=== PATIENT | male | born 1940 | race Caucasian/White ===

== ENCOUNTER → 2020-04-29 12:48 | Outpatient (BNVA) | payer MEDICARE, SELFPAY | PROVIDERS: PCP Internal Medicine; Visit Provider Internal Medicine Cardiovascular Disease | DX: I48.91 Unspecified atrial fibrillation (principal); Z98.890 Other specified postprocedural states | CPT/HCPCS: 93005; 99202 ==

== ENCOUNTER → 2020-05-22 12:51 | Outpatient (REF) | payer MEDICARE, SELFPAY ==
--- NOTE | 2020-05-22 13:00 | ECG_ITS ---
Hook-up date: 2020-05-22 14:08:00 Duration: 24:20:00 Test Indications: PALPITATIONS Medications: 63749 QRS complexes 3971 Ventricular ectopics which represent 4 % of total QRS comp. * Supraventricular ectopics which represent % of total QRS comp. * Paced QRS complexs which represent % of total QRS comp. VENTRICULAR ECTOPY 3651 Isolated 15 Bigeminal Cycles 158 Couplets 1 Runs 4 Beats in Runs 4 Beats LONGEST at 84 BPM at 08:04:42 2020-05-23 4 Beats FASTEST at 84 BPM at 08:04:42 2020-05-23 SUPRAVENTRICULAR ECTOPY * Isolated * Couplets * Runs * Beats in Runs * Beats LONGEST at * BPM at :: -- * Beats FASTEST at * BPM at :: -- HEART RATES 35 MIN at 05:40:48 2020-05-23 58 AVG 91 MAX at 13:54:52 2020-05-23 LONGEST RR 2.9360 secs at 19:58:43 2020-05-22 S-T LEVELS Channel 1 - 128 mm at 14:08:00 2020-05-22 - 128 mm at 14:08:00 2020-05-22 Channel 2 - 128 mm at 14:08:00 2020-05-22 - 128 mm at 14:08:00 2020-05-22 Channel 3 - 128 mm at 03:32:71 -- - 128 mm at 03:32:71 Basic rhythm Atrial fibrillation No long pauses Frequent slow VR to AF Frequent Premature ventricular complexes No diary submitted Referred By: Maverick Rosas Overread By: MAVERICK ROSAS MD
--- NOTE | 2020-05-22 13:00 | CA_ITS ---
Transthoracic Echocardiogram Patient (Last, First, Middle): Damaso Richards T Gender: Male Date of : 1940 Age: 79 Procedure Date: 05/22/2020 Procedure Type: Transthoracic Echocardiogram Location: OP Height: 180.34 cm Weight: 79.38 kg BSA: 1.99 m2 Heart Rate: bpm BP: 132 / 78 mmHg Vocational Horticulture Instructor: DRAKE Referring MD: Maverick Rosas MD Imaging Technologist: Maverick Rosas MD Symptoms: I48.91 - Unspecified atrial fibrillation Study Quality: Fair ECG Rhythm: Atrial Fibrillation Conclusions: - 1. Low normal LV systolic function 2. At least moderate left atrial enlargement 3. Moderate mitral annular calcification with normal cardiac valvular Doppler 4. Normal RV systolic pressure 5. No pericardial effusion Findings Left Ventricle Normal left ventricular cavity size. There is normal left ventricular wall thickness. The left ventricular systolic function is low normal. The visually estimated ejection fraction is between 50-55%. Diastolic function is indeterminate on the basis of available data. Right Ventricle Normal right ventricular cavity size and systolic function. Atria The left atrium is moderately dilated. The right atrium is mildly dilated. Aortic Valve There is mild calcification of the aortic valve. There is mild thickening of the aortic valve. There is no aortic valve stenosis. There is no aortic valve regurgitation. Mitral Valve There is mild anterior and severe posterior mitral leaflet thickening. The posterior mitral leaflet is immobile. There is moderate mitral annular calcification. There is trace mitral valve regurgitation. There is no mitral valve stenosis. Pulmonic Valve The pulmonic valve was not well visualized. Tricuspid Valve Likely normal tricuspid valve structure and function. There is mild tricuspid valve regurgitation. The right ventricular systolic pressure is normal. The right ventricular systolic pressure is 27 mmHg. Normal right atrial pressure. There is no evidence of pulmonary hypertension. Great Vessels All visible segments of the aorta are normal in size. Venous The inferior vena cava is normal in size and collapses greater than 50% with inspiration. Pericardium/Pleural There is no evidence of pericardial effusion. Prior Study Comparison No prior study available for comparison. Measurements 2D Linear Measurements IVSd: 0.96 0.6-0.9/0.6-1.0 cm LVIDd: 4.02 3.9-5.3/4.2-5.9 cm LVIDd Index: 2.02 2.4-3.2/2.2-3.1 cm/m2 LVIDs: 2.64 2.0-3.6 cm LVPWd: 0.97 0.7-1.1 cm Ao Root: 3.70 2.1-3.5 cm LA Diam: 4.50 2.7-3.8/3.0-4.0 cm LAIDs Index: 2.26 1.5-2.3 cm/m2 LV Mass: 152.17 67-162/88-224 g LV Mass Index: 76.47 43-95/49-115 g/m2 LVOT Diam: 2.30 3.0+(-)1.3 cm 2D Systolic Function EF 4C: 53.90 >55% EF 2C: 54.10 >55% EF BiP: 53.70 >55% Mitral Valve MV VTI: 0.37 MV Pk Hunter: 1.37 MV Mn Hunter: 0.57 MV Pk Grad: 8.00 MV Mn Grad: 2.00 MVA Continuity: 1.73 Aortic Valve AoV Pk Hunter: 1.04 AoV Mn Hunter: 0.72 AoV VTI: 0.22 AoV Pk Grad: 4.00 Aov Mn Grad: 2.00 PREMA Cont.VTI: 2.90 LVOT LVOT Pk Hunter: 0.86 LVOT Mn Hunter: 0.52 LVOT VTI: 0.16 LVOT Pk Grad: 3.00 LVOT Mn Grad: 1.00 LVOT Diam: 2.30 LVOT Area: 4.15 Tricuspid Valve TR Pk Hunter: 2.43 TR Pk Grad: 24.00 RA Press: 3.00 RVSP: 27.00 Great Vessels Aorta Ao Root-2D: 3.70 2.0-3.7 cm Ao Asc: 3.10 2.1-3.4 cm Ao Arch: 3.30 Updated in Other Vendor System with Status of Final Maverick Rosas MD electronically signed on 05/22/2020 4:22:53 PM with status of Final
== END ==
LOC: HO.CARD 12:51
PROVIDERS: PCP Internal Medicine; Visit Provider Internal Medicine Cardiovascular Disease
DX: I10 Essential (primary) hypertension (principal); I48.91 Unspecified atrial fibrillation; Z98.890 Other specified postprocedural states
CPT/HCPCS: 93226; 93306

== ENCOUNTER → 2020-06-05 13:08 | Outpatient (BNVA) | payer MEDICARE, SELFPAY | PROVIDERS: PCP Internal Medicine; Visit Provider Internal Medicine Cardiovascular Disease | DX: R00.1 Bradycardia, unspecified (principal); I48.91 Unspecified atrial fibrillation; I10 Essential (primary) hypertension; Z98.890 Other specified postprocedural states | CPT/HCPCS: 99212 ==

== ENCOUNTER 2020-06-18 | Outpatient (REF) | payer MEDICARE, SELFPAY | END 2020-06-18 00:01 | disposition home or self-care (01) | LOC: HO.VC | PROVIDERS: Visit Provider Internal Medicine | DX: Z23 Encounter for immunization (principal) | CPT/HCPCS: 0011A ==

== ENCOUNTER 2020-06-26 07:45 | Outpatient (REF) | payer MEDICARE, SELFPAY ==
[2020-06-26 10:01] LABS: MANUAL DIFF FLAG NO
[2020-06-26 10:03] LABS: Basophils Absolute Auto 0.1 X10*3/uL (0.0-0.2); Basophils Percent Auto 0.7 % (0-2); Eosinophils Absolute Auto 0.8 X10*3/uL (0.0-0.4); Hemoglobin 14.6 g/dl (14.0-18.0); Imm Gran Abs Auto 0.03 X10*3/uL (0.00-0.03); Imm Gran Pct Auto 0.4 % (0.0-0.4); Lymphocytes Absolute Auto 2.4 X10*3/uL (1.2-4.9); Lymphocytes Percent Auto 31.9 % (20-40); Mean Corpuscular HGB Conc 33.2 g/dl (31.0-36.0); Mean Corpuscular Hemoglobin 31.4 pg (27.0-33.0); Mean Corpuscular Volume 94.6 fL (80-98); Mean Platelet Volume 9.6 fL (9.4-12.4); Monocytes Absolute Auto 0.8 X10*3/uL (0.1-1.2); Neutrophils Absolute Auto 3.6 X10*3/uL (2.0-8.3); Platelet Count 315 X10*3/uL (160-400); Red Blood Count 4.65 X10*6/uL (4.60-5.80); Red Cell Distribution Width 12.6 % (11.0-16.0); White Blood Count 7.5 X10*3/uL (4.8-10.8)
[2020-06-26 10:53] LABS: Alanine Aminotransferase 17 U/L (0-40); Albumin Level 4.3 g/dL (3.5-5.0); Alkaline Phosphatase 53 U/L (39-117); Anion Gap 13 (12-20); Aspartate Amino Transferase 17 U/L (5-37); Bilirubin Total 1.1 mg/dL (0.0-1.0); Blood Urea Nitrogen 21 mg/dL (9-16); Calcium 9.1 mg/dL (8.4-10.2); Carbon Dioxide 25 mmol/L (22-29); Chloride 105 mmol/L (96-108); Cholesterol 263 mg/dL; Estimated Glomerular Filt Rate > 60; Glucose Fasting 90 mg/dL (60-99); HDL Cholesterol 46 mg/dL; LDL Cholesterol Calculated 196 mg/dl; Potassium 4.4 mmol/L (3.3-5.1); Sodium 139 mmol/L (135-145); Total Protein 7.1 g/dL (6.5-8.0); Triglycerides 106 mg/dL
[2020-06-26 11:17] LABS: Free T4 (Free Thyroxine) 1.02 ng/dL (0.71-1.85); Prostate Specific Antigen Scr 3.76 ng/mL (<0.05-4.0); Thyroid Stimulating Hormone 3.27 uIU/mL (0.32-4.0)
== END 2020-06-26 07:46 | disposition home or self-care (01) ==
LOC: HO.10HDL 07:45
PROVIDERS: Visit Provider Internal Medicine
DX: I12.9 Hypertensive chronic kidney disease with stage 1 through stage 4 chronic kidney disease, or unspecified chronic kidney disease (principal); N18.9 Chronic kidney disease, unspecified; I48.0 Paroxysmal atrial fibrillation; E78.00 Pure hypercholesterolemia, unspecified; Z12.5 Encounter for screening for malignant neoplasm of prostate
CPT/HCPCS: 36415; 80053; 80061; 84153; 84439; 84443; 85025

== ENCOUNTER 2020-07-16 | Outpatient (REF) | payer MEDICARE, SELFPAY | END 2020-07-16 00:01 | disposition home or self-care (01) | LOC: HO.VC | PROVIDERS: Visit Provider Internal Medicine | DX: Z23 Encounter for immunization (principal) | CPT/HCPCS: 0012A ==

== ENCOUNTER → 2020-07-28 14:51 | Outpatient (REF) | payer MEDICARE, SELFPAY ==
--- NOTE | 2020-07-28 11:46 | ECG_ITS ---
Hook-up date: 2020-07-28 15:14:00 Duration: 43:10:00 Test Indications: BRADYCARDIA, AFIB Medications: 42004 QRS complexes 2541 Ventricular ectopics which represent 3 % of total QRS comp. * Supraventricular ectopics which represent % of total QRS comp. * Paced QRS complexs which represent % of total QRS comp. VENTRICULAR ECTOPY 2291 Isolated 17 Bigeminal Cycles 116 Couplets 7 Runs 21 Beats in Runs 3 Beats LONGEST at 144 BPM at 16:25:41 2020-07-28 3 Beats FASTEST at 144 BPM at 16:25:41 2020-07-28 SUPRAVENTRICULAR ECTOPY * Isolated * Couplets * Runs * Beats in Runs * Beats LONGEST at * BPM at :: -- * Beats FASTEST at * BPM at :: -- HEART RATES 31 MIN at 20:31:35 2020-07-28 54 AVG 92 MAX at 12:18:45 2020-07-29 LONGEST RR 3.3680 secs at 01:41:54 2020-07-29 S-T LEVELS Channel 1 - 128 mm at 15:14:00 2020-07-28 - 128 mm at 15:14:00 2020-07-28 Channel 2 - 128 mm at 15:14:00 2020-07-28 - 128 mm at 15:14:00 2020-07-28 Channel 3 - 128 mm at 03:43:31 -- - 128 mm at 03:43:31 Basic rhythm Atrial fibrillation Frequent Atrial fibrillation with slow VR, average HR of 54 bpm Frequent Premature ventricular complexes Longest pause upto 3.4 seconds No diary submitted Referred By: Maverick Rosas Overread By: MAVERICK ROSAS MD
== END ==
LOC: HO.CARD 14:51
PROVIDERS: PCP Internal Medicine; Visit Provider Internal Medicine Cardiovascular Disease
DX: R00.1 Bradycardia, unspecified (principal)
CPT/HCPCS: 93226

== ENCOUNTER 2020-08-11 08:53 | Outpatient (REF) | payer MEDICARE, SELFPAY ==
[2020-08-11 10:39] LABS: Cholesterol 245 mg/dL; HDL Cholesterol 45 mg/dL; LDL Cholesterol Calculated 174 mg/dl; Triglycerides 133 mg/dL
== END 2020-08-11 08:54 | disposition home or self-care (01) ==
LOC: HO.10HDL 08:53
PROVIDERS: Visit Provider Internal Medicine
DX: E78.00 Pure hypercholesterolemia, unspecified (principal)
CPT/HCPCS: 36415; 80061

== ENCOUNTER → 2020-09-23 12:48 | Outpatient (BNVA) | payer MEDICARE, SELFPAY | PROVIDERS: PCP Internal Medicine; Referring Provider Internal Medicine; Visit Provider Nurse Practitioner Family | DX: I48.91 Unspecified atrial fibrillation (principal); R00.1 Bradycardia, unspecified; I10 Essential (primary) hypertension; Z98.890 Other specified postprocedural states | CPT/HCPCS: 99212 ==

== ENCOUNTER 2020-11-24 15:36 | Outpatient (REF) | payer MEDICARE, SELFPAY | END 2020-11-24 15:37 | disposition home or self-care (01) | LOC: HO.LAB 15:36 | PROVIDERS: PCP Internal Medicine; Visit Provider Internal Medicine | DX: Z20.822 Contact with and (suspected) exposure to COVID-19 (principal) | CPT/HCPCS: C9803; U0003; U0005 ==

== ENCOUNTER 2020-12-23 10:03 | Outpatient (REF) | payer MEDICARE, SELFPAY | END 2020-12-23 10:04 | disposition home or self-care (01) | LOC: HO.LAB 10:03 | PROVIDERS: PCP Internal Medicine; Visit Provider Internal Medicine | DX: Z20.822 Contact with and (suspected) exposure to COVID-19 (principal) | CPT/HCPCS: C9803; U0003; U0005 ==

== ENCOUNTER → 2021-01-27 12:49 | Outpatient (BNVA) | payer MEDICARE, SELFPAY | PROVIDERS: PCP Internal Medicine; Referring Provider Internal Medicine; Visit Provider Internal Medicine Cardiovascular Disease | DX: I48.91 Unspecified atrial fibrillation (principal); Z98.890 Other specified postprocedural states | CPT/HCPCS: 99212 ==

== ENCOUNTER → 2021-07-27 13:44 | Outpatient (REF) | payer MEDICARE, SELFPAY ==
--- NOTE | 2021-07-27 13:50 | HM_ITS ---
* Total monitoring time 2 days and 23 hours. * Underlying rhythm is atrial fibrillation. * Average rate 74/Min. Range 49 to 109/Min. No significant tachycardia or bradycardia. * Frequent PVCs. 2 morphologies and 139 couplets. [place] 2.7%. Brief runs noted. Longest 4 beats. Cannot exclude aberrantly conducted beats. * No patient events. MTDD
--- NOTE | 2021-07-27 14:00 | CA_ITS ---
Transthoracic Echocardiogram Patient (Last, First, Middle): Damaso Richards T Gender: Male Date of : 1940 Age: 80 Procedure Date: 07/27/2021 Procedure Type: Transthoracic Echocardiogram Location: OP Height: 182.88 cm Weight: 77.11 kg BSA: 1.99 m2 Heart Rate: bpm BP: 120 / 85 mmHg Operational Communication Chief: NACHO Referring MD: Maverick Rosas MD Symptoms: Z98.890 - Other specified postprocedural states Study Quality: Fair ECG Rhythm: Atrial Fibrillation Conclusions: - The left ventricular systolic function is low normal. The calculated ejection fraction is 51% by biplane method. - There is severely decreased right ventricular systolic function. TAPSE 0.8cm. - s/p mitral valve repair, with no significant residual stenosis or regurgitation. Findings Left Ventricle Normal left ventricular cavity size. There is mildly increased left ventricular wall thickness. The left ventricular systolic function is low normal. The calculated ejection fraction is 51% by biplane method. There is no evidence of regional wall motion abnormalities. There is paradoxical septal motion consistent with post-operative status. Diastolic function is indeterminate on the basis of available data. Right Ventricle Normal right ventricular cavity size. There is severely decreased right ventricular systolic function. TAPSE 0.8cm. Atria The left atrium is severely dilated. The right atrium is normal in size. Aortic Valve There is a normal trileaflet aortic valve. There is mild calcification of the aortic valve. There is no aortic valve stenosis. There is no aortic valve regurgitation. Mitral Valve There is no mitral valve regurgitation. There is no mitral valve stenosis. s/p mitral valve repair. Mean gradient across the mitral valve 3 mm Hg at 92/Min. Within acceptable limits. Pulmonic Valve The pulmonic valve was not well visualized. There is trace pulmonic valve regurgitation. Tricuspid Valve Normal tricuspid valve structure. There is trace tricuspid valve regurgitation. The pulmonary artery systolic pressure is normal. Great Vessels The aortic annulus, sinuses of valsalva, and asc aorta are normal in size. Venous The inferior vena cava is normal in size and collapses greater than 50% with inspiration. Pericardium/Pleural Widened pericardial space, unable to distinguish between adipose tissue and effusion. Prior Study Comparison Changes noted compared to prior study dated: 05/22/2020. See comments on RV function. Measurements 2D Linear Measurements IVSd: 1.08 0.6-0.9/0.6-1.0 cm LVIDd: 4.26 3.9-5.3/4.2-5.9 cm LVIDd Index: 2.14 2.4-3.2/2.2-3.1 cm/m2 LVIDs: 2.47 2.0-3.6 cm LVPWd: 1.09 0.7-1.1 cm LA Diam: 4.70 2.7-3.8/3.0-4.0 cm LAIDs Index: 2.36 1.5-2.3 cm/m2 LV Mass: 196.08 67-162/88-224 g LV Mass Index: 98.53 43-95/49-115 g/m2 LVOT Diam: 2.20 3.0+(-)1.3 cm 2D Systolic Function EF 4C: 49.70 >55% EF 2C: 53.10 >55% EF BiP: 50.50 >55% Mitral Valve MV VTI: 0.26 MV Pk Hunter: 1.28 MV Mn Hunter: 0.72 MV Pk Grad: 7.00 MV Mn Grad: 3.00 MV Pk E: 1.13 MV PK A: 0.31 MV Decel Time: 211.00 E/A: 3.60 E'Lateral: 11.30 E'Medial: 6.85 E/E' Med: 16.50 E/E' Lat: 10.00 PHT: 62.00 MVA PHT: 3.55 MVA Continuity: 1.46 Decel [place]: 5.38 Aortic Valve AoV Pk Hunter: 0.75 AoV Mn Hunter: 0.58 AoV VTI: 0.17 AoV Pk Grad: 2.00 Aov Mn Grad: 1.00 PREMA Cont.VTI: 2.22 LVOT LVOT Pk Hunter: 0.61 LVOT Mn Hunter: 0.44 LVOT VTI: 0.10 LVOT Pk Grad: 1.00 LVOT Mn Grad: 1.00 LVOT Diam: 2.20 LVOT Area: 3.80 Diastolic Function MV Pk E: 1.13 MV Pk A: 0.31 E/A: 3.60 E'Medial: 6.85 E/E' Med: 16.50 E' Laterial: 11.30 E/E' Lat: 10.00 Right Ventricle TAPSE (mm): 8.69 TVS' Hunter: 5.87 Tricuspid Valve TR Pk Hunter: 2.31 TR Pk Grad: 21.00 RA Press: 3.00 RVSP: 24.00 Great Vessels Aorta Sinus of Valsalva: 3.62 2.0-3.[address] [place]: 2.94 1.7-3.4 cm Ao Asc: 3.30 2.1-3.4 cm Ao Arch: 3.00 Updated in Other Vendor System with Status of Final Russ Jasmine MD electronically signed on 07/28/2021 11:55:21 AM with status of Final
== END ==
LOC: HO.CARD 13:44
PROVIDERS: PCP Internal Medicine; Visit Provider Internal Medicine Cardiovascular Disease
DX: I48.91 Unspecified atrial fibrillation (principal); Z98.890 Other specified postprocedural states
CPT/HCPCS: 93242; 93306

== ENCOUNTER → 2021-08-04 13:47 | Outpatient (BNVA) | payer MEDICARE, SELFPAY | PROVIDERS: PCP Internal Medicine; Referring Provider Internal Medicine; Visit Provider Internal Medicine Cardiovascular Disease | DX: I42.9 Cardiomyopathy, unspecified (principal); R00.1 Bradycardia, unspecified; I48.91 Unspecified atrial fibrillation; Z98.890 Other specified postprocedural states | CPT/HCPCS: 99212 ==

== ENCOUNTER 2021-08-19 09:18 | Outpatient (REF) | payer MEDICARE, SELFPAY ==
[2021-08-19 10:20] LABS: MANUAL DIFF FLAG NO
[2021-08-19 10:23] LABS: Basophils Percent Auto 0.7 % (0-2); Eosinophils Absolute Auto 0.7 X10*3/uL (0.0-0.4); Hematocrit 41.9 % (42.0-52.0); Hemoglobin 14.1 g/dl (14.0-18.0); Imm Gran Abs Auto 0.01 X10*3/uL (0.00-0.03); Imm Gran Pct Auto 0.2 % (0.0-0.4); Lymphocytes Absolute Auto 1.6 X10*3/uL (1.2-4.9); Lymphocytes Percent Auto 29.3 % (20-40); Mean Corpuscular HGB Conc 33.7 g/dl (31.0-36.0); Mean Corpuscular Hemoglobin 31.5 pg (27.0-33.0); Mean Corpuscular Volume 93.7 fL (80.0-98.0); Mean Platelet Volume 9.8 fL (9.4-12.4); Monocytes Absolute Auto 0.5 X10*3/uL (0.1-1.2); Monocytes Percent Auto 8.5 % (2-11); Neutrophils Absolute Auto 2.7 x10*3/uL (2.0-8.3); Neutrophils Percent Auto 48.3 % (45-73); Platelet Count 278 X10*3/uL (160-400); Red Blood Count 4.47 X10*6/uL (4.60-5.80); Red Cell Distribution Width 12.9 % (11.0-16.0); White Blood Count 5.5 X10*3/uL (4.8-10.8)
[2021-08-19 10:57] LABS: Appearance Urine HAZY; Color Urine DK YELLOW; Glucose Urine UA NEG (NEG); Leukocyte Esterase Urine TRACE (NEG); Nitrite Urine NEG (NEG); PH 5.5 (5.0-8.0); Specific Gravity - Urine >= 1.030 (1.005-1.025); Urine Blood NEG (NEG); Urine Ketones NEG (NEG); Urine Protein TRACE MG/DL (NEG-TRACE)
[2021-08-19 10:58] LABS: Alanine Aminotransferase 16 U/L (0-40); Albumin Level 4.2 g/dL (3.5-5.0); Alkaline Phosphatase 49 U/L (39-117); Anion Gap 13 (12-20); Aspartate Amino Transferase 20 U/L (5-37); Bilirubin Total 0.9 mg/dL (0.0-1.0); Blood Urea Nitrogen 21 mg/dL (9-16); Calcium 9.3 mg/dL (8.4-10.2); Carbon Dioxide 25 mmol/L (22-29); Chloride 107 mmol/L (96-108); Cholesterol 225 mg/dL; Estimated Glomerular Filt Rate > 60; Glucose Fasting 100 mg/dL (60-99); HDL Cholesterol 47 mg/dL; LDL Cholesterol Calculated 167 mg/dl; Potassium 4.6 mmol/L (3.3-5.1); Sodium 140 mmol/L (135-145); Total Protein 6.8 g/dL (6.5-8.0); Triglycerides 58 mg/dL
[2021-08-19 11:24] LABS: Bacteria Urine 2+ /LPF; Mucus Urine 2+ /LPF; Squamous Epithelial Cell Urine 1+ /LPF
[2021-08-19 11:42] LABS: PSA,Total (Free>4and<10) 4.66 ng/mL (0.00-4.00)
[2021-08-20 11:27] LABS: Free Prostate Spec Ag 0.5 ng/mL; Percent Free Prostate Spec Ag 13 % (calc) (>25)
== END 2021-08-19 09:19 | disposition home or self-care (01) ==
LOC: HO.10HDL 09:18
PROVIDERS: Visit Provider Internal Medicine
DX: E78.00 Pure hypercholesterolemia, unspecified (principal); I48.91 Unspecified atrial fibrillation; Z12.5 Encounter for screening for malignant neoplasm of prostate
CPT/HCPCS: 36415; 80053; 80061; 81001; 81003; 84153; 84154; 85025

== ENCOUNTER 2022-03-01 09:06 | Outpatient (REF) | payer MEDICARE, SELFPAY ==
[2022-03-01 10:27] LABS: MANUAL DIFF FLAG NO
[2022-03-01 10:34] LABS: Basophils Absolute Auto 0.1 X10*3/uL (0.0-0.2); Basophils Percent Auto 1.1 % (0-2); Eosinophils Absolute Auto 0.6 X10*3/uL (0.0-0.4); Eosinophils Percent Auto 9.5 % (0-4); Hematocrit 41.7 % (42.0-52.0); Imm Gran Abs Auto 0.01 X10*3/uL (0.00-0.03); Imm Gran Pct Auto 0.2 % (0.0-0.4); Lymphocytes Absolute Auto 1.7 X10*3/uL (1.2-4.9); Lymphocytes Percent Auto 27.1 % (20-40); Mean Corpuscular HGB Conc 33.6 g/dl (31.0-36.0); Mean Corpuscular Hemoglobin 31.3 pg (27.0-33.0); Mean Corpuscular Volume 93.3 fL (80.0-98.0); Mean Platelet Volume 9.7 fL (9.4-12.4); Monocytes Absolute Auto 0.6 X10*3/uL (0.1-1.2); Neutrophils Absolute Auto 3.3 x10*3/uL (2.0-8.3); Neutrophils Percent Auto 53.1 % (45-73); Platelet Count 272 X10*3/uL (160-400); Red Blood Count 4.47 X10*6/uL (4.60-5.80); Red Cell Distribution Width 12.6 % (11.0-16.0); White Blood Count 6.2 X10*3/uL (4.8-10.8)
[2022-03-01 10:56] LABS: Alanine Aminotransferase 14 U/L (0-40); Albumin Level 4.3 g/dL (3.5-5.0); Alkaline Phosphatase 50 U/L (39-117); Anion Gap 14 (12-20); Aspartate Amino Transferase 19 U/L (5-37); Bilirubin Total 1.3 mg/dL (0.0-1.0); Blood Urea Nitrogen 26 mg/dL (9-16); Calcium 9.1 mg/dL (8.4-10.2); Carbon Dioxide 24 mmol/L (22-29); Chloride 107 mmol/L (96-108); Cholesterol 219 mg/dL; Estimated Glomerular Filt Rate > 60; Glucose Fasting 86 mg/dL (60-99); HDL Cholesterol 51 mg/dL; LDL Cholesterol Calculated 157 mg/dl; Potassium 4.3 mmol/L (3.3-5.1); Sodium 141 mmol/L (135-145); Total Protein 6.9 g/dL (6.5-8.0); Triglycerides 58 mg/dL
[2022-03-01 11:19] LABS: Vitamin D 25-OH Total 28.9 ng/mL (>30)
== END 2022-03-01 09:07 | disposition home or self-care (01) ==
LOC: HO.10HDL 09:06
PROVIDERS: Visit Provider Internal Medicine
DX: E78.00 Pure hypercholesterolemia, unspecified (principal); I48.91 Unspecified atrial fibrillation; E55.9 Vitamin D deficiency, unspecified
CPT/HCPCS: 36415; 80053; 80061; 82306; 85025

== ENCOUNTER 2022-05-28 13:39 | Outpatient (REF) | payer MEDICARE, SELFPAY ==
[2022-05-28 13:54] LABS: MANUAL DIFF FLAG NO
[2022-05-28 14:20] LABS: Basophils Absolute Auto 0.1 X10*3/uL (0.0-0.2); Basophils Percent Auto 0.9 % (0-2); Eosinophils Absolute Auto 0.4 X10*3/uL (0.0-0.4); Eosinophils Percent Auto 6.5 % (0-4); Hematocrit 43.9 % (42.0-52.0); Hemoglobin 14.3 g/dl (14.0-18.0); Imm Gran Abs Auto 0.02 X10*3/uL (0.00-0.03); Imm Gran Pct Auto 0.3 % (0.0-0.4); Lymphocytes Absolute Auto 1.3 X10*3/uL (1.2-4.9); Lymphocytes Percent Auto 20.6 % (20-40); Mean Corpuscular HGB Conc 32.6 g/dl (31.0-36.0); Mean Corpuscular Hemoglobin 30.7 pg (27.0-33.0); Mean Corpuscular Volume 94.2 fL (80.0-98.0); Mean Platelet Volume 9.4 fL (9.4-12.4); Monocytes Absolute Auto 0.7 X10*3/uL (0.1-1.2); Monocytes Percent Auto 10.4 % (2-11); Neutrophils Absolute Auto 3.9 x10*3/uL (2.0-8.3); Neutrophils Percent Auto 61.3 % (45-73); Platelet Count 269 X10*3/uL (160-400); Red Blood Count 4.66 X10*6/uL (4.60-5.80); Red Cell Distribution Width 12.5 % (11.0-16.0); White Blood Count 6.4 X10*3/uL (4.8-10.8)
[2022-05-28 14:56] LABS: Iron 140 mcg/dL (45-160); Percent Iron Saturation 51 % (15-50); Total Iron Binding Capacity 276 mcg/dL (228-428); Unsaturated Iron Binding 136 ug/dL
[2022-05-28 15:14] LABS: Ferritin 97 ng/mL (20-250)
== END 2022-05-28 13:40 | disposition home or self-care (01) ==
LOC: HO.LAB 13:39
PROVIDERS: PCP Internal Medicine; Visit Provider Internal Medicine
DX: D64.9 Anemia, unspecified (principal)
CPT/HCPCS: 36415; 82728; 83540; 85025

== ENCOUNTER → 2022-07-19 12:47 | Outpatient (REF) | payer MEDICARE, SELFPAY ==
--- NOTE | 2022-07-19 12:51 | CA_ITS ---
Transthoracic Echocardiogram Patient (Last, First, Middle): Damaso Richards T Gender: Male Date of : 1940 Age: 81 Procedure Date: 07/19/2022 Procedure Type: Transthoracic Echocardiogram Location: OP Height: 180.34 cm Weight: 75.3 kg BSA: 1.95 m2 Heart Rate: 70 bpm BP: 140 / 65 mmHg Speech Teacher: STACI Referring MD: Maverick Rosas MD Symptoms: I42.9 - Cardiomyopathy, unspecified Study Quality: Fair ECG Rhythm: Atrial Fibrillation Conclusions: - The left ventricular systolic function is low normal. The visually estimated ejection fraction is between 50-55%. - There is severely decreased right ventricular systolic function. - Normally functioning mitral valve, status post repair. Findings Left Ventricle Normal left ventricular cavity size. There is moderately increased left ventricular wall thickness. The left ventricular systolic function is low normal. The visually estimated ejection fraction is between 50-55%. There is no evidence of regional wall motion abnormalities. Diastolic function is indeterminate on the basis of available data. Right Ventricle Mildly increased right ventricular cavity size. There is severely decreased right ventricular systolic function. Atria The left atrium is moderately dilated. The right atrium is mildly dilated. Aortic Valve There is a normal trileaflet aortic valve. There is mild calcification of the aortic valve. There is no aortic valve stenosis. There is trace (trivial) aortic valve regurgitation. Mitral Valve There is trace mitral valve regurgitation. There is no mitral valve stenosis. s/p mitral valve repair with some calcific changes. Pulmonic Valve The pulmonic valve is likely normal. Tricuspid Valve There is trace tricuspid valve regurgitation. There is no evidence of pulmonary hypertension. Great Vessels The asc aorta is normal in size. Venous The inferior vena cava is normal in size and collapses less than 50% with inspiration. Pericardium/Pleural There is no evidence of pericardial effusion. Measurements 2D Linear Measurements IVSd: 1.35 0.6-0.9/0.6-1.0 cm LVIDd: 4.18 3.9-5.3/4.2-5.9 cm LVIDd Index: 2.14 2.4-3.2/2.2-3.1 cm/m2 LVIDs: 2.99 2.0-3.6 cm LVPWd: 1.26 0.7-1.1 cm LA Diam: 4.70 2.7-3.8/3.0-4.0 cm LAIDs Index: 2.41 1.5-2.3 cm/m2 LV Mass: 249.61 67-162/88-224 g LV Mass Index: 128.01 43-95/49-115 g/m2 LVOT Diam: 2.30 3.0+(-)1.3 cm 2D Systolic Function EF 4C: 48.10 >55% EF 2C: 59.80 >55% EF BiP: 54.90 >55% Mitral Valve MV Pk E: 1.46 MV Decel Time: 177.00 E'Lateral: 8.81 E'Medial: 8.05 E/E' Med: 18.10 E/E' Lat: 16.60 PHT: 52.00 MVA PHT: 4.23 Decel [place]: 8.26 Aortic Valve AoV Pk Hunter: 0.93 AoV Mn Hunter: 0.71 AoV VTI: 0.21 AoV Pk Grad: 3.00 Aov Mn Grad: 2.00 PREMA Cont.VTI: 3.27 LVOT LVOT Pk Hunter: 0.71 LVOT Mn Hunter: 0.53 LVOT VTI: 0.17 LVOT Pk Grad: 2.00 LVOT Mn Grad: 1.00 LVOT Diam: 2.30 LVOT Area: 4.15 Diastolic Function MV Pk E: 1.46 E'Medial: 8.05 E/E' Med: 18.10 E' Laterial: 8.81 E/E' Lat: 16.60 Right Ventricle TAPSE (mm): 8.26 TVS' Hunter: 4.73 Tricuspid Valve TR Pk Hunter: 2.08 TR Pk Grad: 17.00 RA Press: 3.00 RVSP: 20.00 Great Vessels Aorta Sinus of Valsalva: 3.80 2.0-3.5 cm Ao Asc: 3.10 2.1-3.4 cm Pulmonary Valve PV Pk Hunter: 0.65 Peak PV Grad: 2.00 Updated in Other Vendor System with Status of Final Russ Jasmine MD electronically signed on 07/20/2022 11:14:06 AM with status of Final
--- NOTE | 2022-07-19 12:51 | HM_ITS ---
Conclusion: 1. Patient was monitored for total period of 3 days 2. Baseline was atrial fibrillation with average heart of 70 beats per minute with good heart rate control 3. No significant pauses noted 4. Total of 11,774 PVCs accounting for 3.9% total beats account for frequent PVCs 5. No patient reported symptoms MTDD
== END ==
LOC: HO.CARD 12:47
PROVIDERS: PCP Internal Medicine; Visit Provider Internal Medicine Cardiovascular Disease
DX: R00.1 Bradycardia, unspecified (principal); I42.9 Cardiomyopathy, unspecified
CPT/HCPCS: 93242; 93306

== ENCOUNTER → 2022-08-05 13:58 | Outpatient (BNVA) | payer MEDICARE, SELFPAY | PROVIDERS: PCP Internal Medicine; Referring Provider Internal Medicine; Visit Provider Internal Medicine Cardiovascular Disease | DX: I48.91 Unspecified atrial fibrillation (principal); I42.9 Cardiomyopathy, unspecified; Z98.890 Other specified postprocedural states | CPT/HCPCS: 93005; 99212 ==

== ENCOUNTER 2023-06-29 12:31 | Outpatient (AMB) | payer MEDICARE, SELFPAY ==
[2023-06-29 12:58] VITALS: BP 130/80; BMI 23.9
--- NOTE | 2023-06-29 12:58 | A.OFFPC_ITS ---
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 Intake Note: New patient/ Alzheimer, med review, leg swelling poor toe circulation Side Laster Tack Required: No Accompanied by: Spouse Allergies No Known Allergies [NKA] Allergy (Mild, Verified 06/29/23 13:34) NONE Medication List - Last Reconciled 06/29/23 by Sabrina Lin MD ascorbic acid (vitamin C) 250 mg PO DAILY magnesium 250 mg PO DAILY multivitamin,[id number] (Complete Multivitamin tablet) 1 tab PO DAILY [id number] oil-coQ10 1,900-640-50 mg/2.5 gram grams PO rivastigmine 1 patch topical DAILY valsartan 80 mg PO DAILY Tobacco use date assessed: 06/29/23 Fall risk assessment: No Falls in past year Last assessed Fall Risk: 06/29/23 Dental Screening Dental Screen Date: 06/29/23 Did you have a dental visit in the last 12 months?: Yes Did you have a dental problem in the last 6 months where you did not have access to dental care?: No Was dental information given to patient?: Patient has dentist HPI HPI Comments History of Present Illness Details This is an 82-year-old male with Alzheimer's dementia, atrial fibrillation, hypertension and cardiomyopathy that comes today accompanied by 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 On rivastigmine treating dementia which has not significantly worsened for now. Has atrial fibrillation and cardiomyopathy follow by cardiology. Last echocardiogram was July 2022 showing ejection fraction of 50-55%. Blood pressure has been stable with valsartan. Denies any chest pain or shortness of breath. [facility] Medical History (Updated 06/29/23 @ 19:47 by Sabrina Lin MD) Atrial fibrillation HTN (hypertension) Surgical History History of mitral valve repair Family History (Updated 06/29/23 @ 13:04 by FIONA Mazariegos) Father CVD (cardiovascular disease) Mother CVD (cardiovascular disease) [facility] Alcohol intake: current Alcohol intake frequency: holidays/special occasions only Patient Tobacco Use Status: Never used Tobacco e-Cigarette/Vaping Use: Never Used Second Hand Smoke Exposure: Yes service: Yes ([id number]) Current occupational status: retired Cognitive needs: No Hearing needs: Yes Vision needs: Yes Questionnaire PHQ-9 Over the last 2 weeks, how often have you been bothered by any of the following problems? 1. Little interest or pleasure in doing things: not at all 2. Feeling down, depressed, or hopeless: not at all 3. Trouble falling or staying asleep, or sleeping too much: not at all 4. Feeling tired or having little energy: not at all 5. Poor appetite or overeating: not at all 6. Feeling bad about yourself - or that you are a failure or have let yourself or your family down: not at all 7. Trouble concentrating on things, such as reading the newspaper or watching television: not at all 8. Moving or speaking so slowly that other people could have noticed. Or the opposite - being so fidgety or restless that you have been moving around a lot more than usual: not at all 9. Thoughts that you would be better off or of hurting yourself in some way: not at all Total score: 0 Depression Screening Interpretation: Negative Depression Screening Done: Yes 31643 - PHQ-9 Billing: Yes Source: Developed by Drs. Stewart Dugan, Lala Henderson, Og Murphy and colleagues, with an educational ronni from [employer]. Thrive Questionnaire Date Thrive assessed: 06/29/23 I am a: Patient What is your living situation today?: I have a steady place to live Within the past 12 months, did the food you bought not last and you didn't have the money to get more?: Never true Within the past 12 months, did you worry whether your food would run out before you got money to buy more?: Never true Do you have trouble paying for medicines?: No Do you have trouble getting transportation to medical appointments?: No Do you have trouble taking care of your child, family member or friend?: No Do you have trouble with day-to-day activities such as bathing, preparing meals, shopping, managing finances, etc.?: No Are you currently unemployed and looking for a job?: No Are you interested in more education?: No Please select the resources that you would like help with: None Currently or been in a relationship where the following occur: no concerns reported THRIVE Score: 0 AUDIT C Alcohol Use Questionnaire (AUDIT-C) 1. How often do you have a drink containing alcohol?: Monthly or less 2. How many drinks containing alcohol do you have on a typical day when you are drinking?: 1 or 2 3. How often do you have six or more drinks on one occasion?: Never Total Score: 1 CORI-7 AMB Questionnaire CORI-7 Date CORI - 7 assessed: 06/29/23 Feeling nervous, anxious, or on edge: 0 = Not at all Not being able to stop or control worryin = Not at all Worrying too much about different things: 0 = Not at all Trouble relaxin = Not at all Being so restless that it is hard to sit still: 0 = Not at all Becoming easily annoyed or irritable: 0 = Not at all Feeling afraid as if something awful might happen: 0 = Not at all Total CORI-7 score (0-4 normal; 5-9 mild; 10-14 moderate; 15-21 severe): 0 Source: Developed by Drs. Stewart Dugan, Lala Henderson, Og Murphy and colleagues, with an educational ronni from [employer]. CORI-7 Assessment Billing CORI-7 Assessment Tool: CORI-7 Assessment 03300 Review of Systems Const All systems reviewed & are unremarkable except as noted in HPI and below Eyes Reports no additional complaints, Denies change in vision and Denies other visual disturbances Card Denies chest pain at rest, Denies chest pain with activity, Denies edema, Denies irregular heart rhythm, Denies claudication, Denies dyspnea, Denies dyspnea on exertion, Denies orthopnea, Denies paroxysmal nocturnal dyspnea and Denies slow heart rate Resp Denies cough, Denies dyspnea and Denies dyspnea on exertion GI Denies abdominal pain, Denies change in bowel habits, Denies excessive flatus, Denies nausea and Denies vomiting Denies urinary hesitancy, Denies urinary incontinence and Denies urinary urgency Musc Denies abnormal gait, Denies atrophy, Denies deformity and Denies limited range of motion Skin/Breast Denies bleeding lesions, Denies changing lesions and Denies rash Neuro Denies abnormal gait, Denies behavioral changes, Denies lack of coordination and Reports memory loss Psych Denies behavioral changes and Reports memory loss Physical exam (Primary Care) Vital Signs: Last Vital Signs BP 130/80 06/29/23 12:58 BMI result Body Mass Index 23.9 Tobacco/Smoking Status: Tobacco use Status Tobacco use date assessed 06/29/23 06/29/23 13:07 Patient Tobacco Use Status Never used Tobacco 06/29/23 13:07 e-Cigarette/Vaping Use Never Used 06/29/23 13:07 PHQ-9: PHQ-9 Score PHQ-9: Total score 0 06/29/23 13:49 Depression Screening Interpretation: Negative Thrive Assessment: Date of Thrive Assessment Date Thrive assessed 06/29/23 06/29/23 13:07 Currently or been in a relationship where the following occur: no concerns reported Eyes General: appearance normal, both eyes and all related structures Eyelids: Yes eyelids normal Conjunctivae: conjunctivae normal Neck Neck: Yes normal visual inspection and Yes supple Resp Effort & Inspection: normal respiratory effort Auscultation: clear to auscultation bilaterally Cardio Jugular venous distension: no JVD Rate: regular rate Rhythm: regular rhythm Heart sounds: S1 normal heart sound present and S2 normal heart sound present Extrem General: Yes full ROM Assessment and Plan Assessment & Plan (1) Cardiomyopathy: Comment: Reduced RV systolic function Code(s): I42.9 - Cardiomyopathy, unspecified Plan: Follow-up with Cardiology. Echocardiogram ordered. The goal is to not gain 5 lb in a week. (2) HTN (hypertension): Code(s): I10 - Essential (primary) hypertension Plan: Continue valsartan. Blood pressure goal is equal or less than 130/80. (3) Atrial fibrillation: Code(s): I48.91 - Unspecified atrial fibrillation Plan: Follow-up with Cardiology. (4) Alzheimer disease: Code(s): G30.9 - Alzheimer's disease, unspecified; F02.80 - Dementia in other diseases classified elsewhere, unspecified severity, without behavioral disturbance, psychotic disturbance, mood disturbance, and anxiety Plan: Continue rivastigmine. Orders: Orders Complete Blood Count Auto Diff Today D64.9 - Anemia, unspecified Magnesium Today E83.42 - Hypomagnesemia CA echo transthoracic complete Today I42.9 - Cardiomyopathy, unspecified, I48.91 - Unspecified atrial fibrillation Lipid Panel Today E78.5 - Hyperlipidemia, unspecified, I42.9 - Cardiomyopathy, unspecified Comprehensive [place]. Panel Fast Today I42.9 - Cardiomyopathy, unspecified IRON PROFILE Today D64.9 - Anemia, unspecified NT-proBNP Today I42.9 - Cardiomyopathy, unspecified Medications: New furosemide 20 mg PO DAILY 30 days PRN 30 tabs 2RF leg swelling Coding Level of Care Code New Pt Level 4 (25674) Diagnoses Cardiomyopathy I42.9 HTN (hypertension) I10 Atrial fibrillation I48.91 Alzheimer disease G30.9; F02.80 Additional Codes CORI-7 Assessment Billing - CORI-7 Assessment Tool: CORI-7 Assessment 10519 ([id number]) Time Spent (min) 25
== END 2023-06-29 13:49 | disposition home or self-care (01) ==
PROVIDERS: PCP Internal Medicine; Visit Provider Internal Medicine
DX: I42.9 Cardiomyopathy, unspecified (principal); I48.91 Unspecified atrial fibrillation; G30.9 Alzheimer's disease, unspecified; F02.80 Dementia in other diseases classified elsewhere, unspecified severity, without behavioral disturbance, psychotic disturbance, mood disturbance, and anxiety; I10 Essential (primary) hypertension
CPT/HCPCS: 99204

== ENCOUNTER → 2023-07-11 09:34 | Outpatient (REF) | payer MEDICARE, SELFPAY ==
[2023-07-11 09:50] LABS: MANUAL DIFF FLAG NO
[2023-07-11 10:10] LABS: Basophils Absolute Auto 0.1 X10*3/uL (0.0-0.2); Basophils Percent Auto 0.7 % (0-2); Eosinophils Absolute Auto 0.5 X10*3/uL (0.0-0.4); Eosinophils Percent Auto 7.5 % (0-4); Hematocrit 41.2 % (42.0-52.0); Hemoglobin 13.9 g/dl (14.0-18.0); Imm Gran Abs Auto 0.02 X10*3/uL (0.00-0.03); Imm Gran Pct Auto 0.3 % (0.0-0.4); Lymphocytes Absolute Auto 1.8 X10*3/uL (1.2-4.9); Lymphocytes Percent Auto 24.5 % (20-40); Mean Corpuscular HGB Conc 33.7 g/dl (31.0-36.0); Mean Corpuscular Hemoglobin 31.4 pg (27.0-33.0); Mean Corpuscular Volume 93.2 fL (80.0-98.0); Mean Platelet Volume 9.4 fL (9.4-12.4); Monocytes Absolute Auto 0.7 X10*3/uL (0.1-1.2); Monocytes Percent Auto 9.3 % (2-11); Neutrophils Absolute Auto 4.2 x10*3/uL (2.0-8.3); Neutrophils Percent Auto 57.7 % (45-73); Platelet Count 276 X10*3/uL (160-400); Red Blood Count 4.42 X10*6/uL (4.60-5.80); Red Cell Distribution Width 12.3 % (11.0-16.0); White Blood Count 7.2 X10*3/uL (4.8-10.8)
[2023-07-11 11:29] LABS: Alanine Aminotransferase 15 U/L (0-40); Albumin Level 4.1 g/dL (3.5-5.0); Alkaline Phosphatase 53 U/L (39-117); Anion Gap 11 (12-20); Aspartate Amino Transferase 15 U/L (5-37); Bilirubin Total 0.8 mg/dL (0.0-1.0); Blood Urea Nitrogen 30 mg/dL (9-16); Calcium 9.3 mg/dL (8.4-10.2); Carbon Dioxide 28 mmol/L (22-29); Chloride 105 mmol/L (96-108); Cholesterol 225 mg/dL (<200); Estimated Glomerular Filt Rate 50; Glucose Fasting 88 mg/dL (60-99); HDL Cholesterol 46 mg/dL (>40); Iron 125 mcg/dL (45-160); LDL Cholesterol Calculated 161 mg/dL (<100); Magnesium 2.3 mg/dL (1.6-2.6); Percent Iron Saturation 50 % (15-50); Sodium 140 mmol/L (135-145); Total Iron Binding Capacity 249 mcg/dL (228-428); Total Protein 7.1 g/dL (6.5-8.0); Triglycerides 93 mg/dL (<150); Unsaturated Iron Binding 124 ug/dL
--- NOTE | 2023-07-11 13:40 | CA_ITS ---
Transthoracic Echocardiogram Patient (Last, First, Middle): Damaso Richards T Gender: Male Date of : 1940 Age: 82 Procedure Date: 07/11/2023 Procedure Type: Transthoracic Echocardiogram Location: OP Height: 180.34 cm Weight: 76.2 kg BSA: 1.96 m2 Heart Rate: bpm BP: 114 / 74 mmHg Core Cutter: NACHO Referring MD: Maverick Rosas MD Symptoms: Z98.890 - Other specified postprocedural states Study Quality: Fair Conclusions: - The left ventricular systolic function is low normal. The visually estimated ejection fraction is between 50-55%. - The left atrium is severely dilated. - s/p mitral valve repair. Normal valvular function. Findings Left Ventricle Normal left ventricular cavity size. There is mildly increased left ventricular wall thickness. The left ventricular systolic function is low normal. The visually estimated ejection fraction is between 50-55%. There is paradoxical septal motion consistent with post-operative status. Diastolic function is indeterminate on the basis of available data. Right Ventricle Moderately increased right ventricular cavity size. There is moderately decreased right ventricular systolic function. Atria The left atrium is severely dilated. The right atrium is moderately dilated. Aortic Valve There is a normal trileaflet aortic valve. There is mild calcification of the aortic valve. There is no aortic valve stenosis. There is no aortic valve regurgitation. Mitral Valve There is trace mitral valve regurgitation. There is no mitral valve stenosis. s/p mitral valve repair. Pulmonic Valve The pulmonic valve is likely normal. Tricuspid Valve There is mild tricuspid valve regurgitation. There is no evidence of pulmonary hypertension. Great Vessels The asc aorta is normal in size. Venous The inferior vena cava is normal in size and collapses greater than 50% with inspiration. Pericardium/Pleural There is no evidence of pericardial effusion. Prior Study Comparison No significant change compared to prior study dated: 07/19/2022. Measurements 2D Linear Measurements IVSd: 1.05 0.6-0.9/0.6-1.0 cm LVIDd: 3.92 3.9-5.3/4.2-5.9 cm LVIDd Index: 2.00 2.4-3.2/2.2-3.1 cm/m2 LVIDs: 2.84 2.0-3.6 cm LVPWd: 1.08 0.7-1.1 cm LA Diam: 4.90 2.7-3.8/3.0-4.0 cm LAIDs Index: 2.50 1.5-2.3 cm/m2 LV Mass: 167.66 67-162/88-224 g LV Mass Index: 85.54 43-95/49-115 g/m2 LVOT Diam: 2.40 3.0+(-)1.3 cm 2D Systolic Function EF 4C: 51.30 >55% EF 2C: 57.20 >55% EF BiP: 54.50 >55% Mitral Valve MV VTI: 0.32 MV Pk Hunter: 1.37 MV Mn Hunter: 0.79 MV Pk Grad: 8.00 MV Mn Grad: 3.00 MV Pk E: 1.17 MV Decel Time: 220.00 E'Lateral: 11.10 E'Medial: 8.28 E/E' Med: 14.10 E/E' Lat: 10.50 PHT: 64.00 MVA PHT: 3.44 MVA Continuity: 1.76 Decel Schleicher: 5.40 Aortic Valve AoV Pk Hunter: 0.92 AoV Mn Hunter: 0.67 AoV VTI: 0.21 AoV Pk Grad: 3.00 Aov Mn Grad: 2.00 PREMA Cont.VTI: 2.71 LVOT LVOT Pk Hunter: 0.55 LVOT Mn Hunter: 0.38 LVOT VTI: 0.12 LVOT Pk Grad: 1.00 LVOT Mn Grad: 1.00 LVOT Diam: 2.40 LVOT Area: 4.52 Diastolic Function MV Pk E: 1.17 E'Medial: 8.28 E/E' Med: 14.10 E' Laterial: 11.10 E/E' Lat: 10.50 Right Ventricle TAPSE (mm): 13.10 TVS' Hunter: 6.30 Tricuspid Valve TR Pk Hunter: 2.35 TR Pk Grad: 22.00 RA Press: 3.00 RVSP: 25.00 Great Vessels Aorta Sinus of Valsalva: 3.62 2.0-3.5 cm Ao Asc: 3.50 2.1-3.4 cm Updated in Other Vendor System with Status of Final Russ Jasmine MD electronically signed on 07/12/2023 12:01:27 PM with status of Final
[2023-07-16 15:23] LABS: NT-proBNP 882 pg/mL (<450)
== END ==
LOC: HO.CARD 09:34
PROVIDERS: Absent Provider Internal Medicine; PCP Internal Medicine; Visit Provider Internal Medicine Cardiovascular Disease
DX: I42.9 Cardiomyopathy, unspecified (principal); D64.9 Anemia, unspecified; E83.42 Hypomagnesemia; E78.5 Hyperlipidemia, unspecified; Z98.890 Other specified postprocedural states
CPT/HCPCS: 36415; 80053; 80061; 83540; 83735; 83880; 85025; 93306

== ENCOUNTER → 2023-07-11 13:40 | Outpatient (BNV) | payer MEDICARE, SELFPAY | PROVIDERS: Absent Provider Internal Medicine; PCP Internal Medicine; Visit Provider Internal Medicine | DX: I51.7 Cardiomegaly (principal); I36.1 Nonrheumatic tricuspid (valve) insufficiency | CPT/HCPCS: 93306 ==

== ENCOUNTER 2023-07-21 13:59 | Outpatient (AMB) | payer MEDICARE, SELFPAY ==
--- NOTE | 2023-07-21 14:07 | MHC.OFFVIS ---
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 Accompanied by his . He does have some cognitive issues. Recently was started on low-dose Lasix 20 mg by you for leg edema and elevated proBNP. However he did not have any additional symptoms of worsening shortness of breath, orthopnea, PND. He takes Lasix in the late evening and says that he has not noticed any change in his symptoms. Leg edema is same as per the . Recent echocardiogram shows low normal LV ejection fraction with severely dilated left atrium with good mitral valve repair. Denies any bleeding issues or neurologic events. Currently not on oral anticoagulation therapy. [facility] Medical History Atrial fibrillation HTN (hypertension) Surgical History History of mitral valve repair Family History Father CVD (cardiovascular disease) Mother CVD (cardiovascular disease) [facility] Alcohol intake: current Alcohol intake frequency: holidays/special occasions only Patient Tobacco Use Status: Never used Tobacco e-Cigarette/Vaping Use: Never Used Second Hand Smoke Exposure: Yes service: Yes ([id number]) Current occupational status: retired Cognitive needs: No Hearing needs: Yes Vision needs: Yes Review of Systems Const Denies chills, Denies fatigue, Denies fever(s), Denies frequent falls, Denies weakness, Denies weight gain and Denies weight loss ENT Denies dizziness Card Denies chest pain, Denies leg edema, Denies lightheadedness, Denies palpitations, Denies dyspnea, Denies dyspnea on exertion, Denies orthopnea and Denies other (loss of consciousness) Resp Denies cough, Denies dyspnea and Denies dyspnea on exertion GI Denies hematochezia and Denies change in stool character Musc Denies abnormal gait, Denies muscle weakness, Denies numbness, Denies radiating pain into limb and Denies tingling Neuro Denies abnormal gait, Denies dizziness, Denies frequent falls, Denies numbness, Denies tingling and Denies weakness Endo Denies fatigue and Denies palpitations Physical Exam Vital Signs: Last Vital Signs Pulse 76 07/21/23 14:08 BP 106/66 07/21/23 14:08 BMI result Body Mass Index 23.6 Const General: cooperative, comfortable, alert, awake and well groomed Nutritional Appearance: average body habitus Orientation/consciousness: patient oriented x3 Limitations: no limitations Neck Neck: Yes trachea midline, Yes supple and Yes no JVD Resp Effort & Inspection: normal respiratory effort Auscultation: clear to auscultation bilaterally Cardio Palpation: normal PMI Rate: regular rate Rhythm: abnormal rhythm irregularly irregular Heart sounds: S1 normal heart sound present and S2 normal heart sound present Skin General skin exam: no rashes or lesions noted Neuro General: patient oriented x3 and no focal motor deficits Extrem General: Yes no clubbing, cyanosis or edema Psych Appearance: grossly normal Office Procedures EKG Details: EKG shows atrial fibrillation with suggestion of right ventricular hypertrophy with poor R-wave progression [id number], Complete Assessment & Plan Assessment & Plan (1) Atrial fibrillation: Code(s): I48.91 - Unspecified atrial fibrillation Plan: Chronic rate control atrial fibrillation without any rate lowering medications at this point time. Significant left atrial enlargement. Unlikely to pursue rhythm control approach. Discussed about oral anticoagulation therapy and they want to continue to defer it. Risk of stroke was discussed. (2) S/P mitral valve repair: Code(s): Z98.890 - Other specified postprocedural states Plan: Status post remote mitral valve repair with valve functioning well on recent echocardiogram. No further interventions required. SBE prophylaxis as per ACC/aha guidelines. Follow-up echocardiogram in 1 year's time. (3) Cardiomyopathy: Comment: Reduced RV systolic function Code(s): I42.9 - Cardiomyopathy, unspecified Plan: Low normal LV systolic function with RV systolic dysfunction in the past. Elevated pro BNP is expecting patient with chronic atrial fibrillation and mild LV and RV systolic dysfunction. He has no clinical signs of congestive heart failure. Does have bilateral below knee edema which appear to be more related to dependent edema rather than heart failure as there is no clinical evidence of central venous congestion. He is currently on Lasix therapy without much improvement. Can consider continuing Lasix therapy although clinical role of this is suspect. This was discussed with the patient and patient's . Will follow up in the clinic in 1 year's time, sooner p.r.n.. Thank you for allowing me to partake in his care Medications: Changed From furosemide 20 mg PO DAILY 30 days PRN 30 tabs 2RF leg swelling To furosemide 20 mg PO DAILY Coding Level of Care Code Est Pt Level 4 (70647) Diagnoses Atrial fibrillation I48.91 S/P mitral valve repair Z98.890 Cardiomyopathy I42.9 CPT Codes EKG - CPT: 83454-[id number], Complete ([id number])
[2023-07-21 14:08] VITALS: BP 106/66; PULSE 76; BMI 23.6
== END 2023-07-21 14:31 | disposition home or self-care (01) ==
PROVIDERS: PCP Internal Medicine; Visit Provider Internal Medicine Cardiovascular Disease
DX: I48.91 Unspecified atrial fibrillation (principal); Z98.890 Other specified postprocedural states; I42.9 Cardiomyopathy, unspecified
CPT/HCPCS: 93010; 99214

== ENCOUNTER → 2023-07-21 13:59 | Outpatient (BNVA) | payer MEDICARE, SELFPAY | PROVIDERS: PCP Internal Medicine; Visit Provider Internal Medicine Cardiovascular Disease | DX: I48.91 Unspecified atrial fibrillation (principal); I42.9 Cardiomyopathy, unspecified; Z98.890 Other specified postprocedural states | CPT/HCPCS: 93005; 99212 ==

== ENCOUNTER 2023-09-27 13:45 | Outpatient (AMB) | payer MEDICARE, SELFPAY ==
[2023-09-27 13:49] VITALS: BP 112/76; BMI 23.3
--- NOTE | 2023-09-27 13:49 | A.OFFPC_ITS ---
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 Quality Control Technician Required: No Accompanied by: Spouse Allergies No Known Allergies [NKA] Allergy (Mild, Verified 09/27/23 14:04) NONE Medication List - Last Reconciled 09/27/23 by Sabrina Lin MD ascorbic acid (vitamin C) 250 mg PO DAILY furosemide 20 mg PO DAILY magnesium 250 mg PO DAILY multivitamin,su-gcgq-wjlqmdij (Complete Multivitamin tablet) 1 tab PO DAILY igmda-8-leo-epa-fish oil-coQ10 1,900-640-50 mg/2.5 gram grams PO rivastigmine 1 patch topical DAILY 30 days valsartan 80 mg PO DAILY 90 days Tobacco use date assessed: 06/29/23 Fall risk assessment: No Falls in past year Last assessed Fall Risk: 09/27/23 Dental Screening Dental Screen Date: 06/29/23 HPI HPI Comments History of Present Illness Details This is an 82-year-old male with Alzheimer's disease, hypertension, cardiomyopathy and atrial fibrillation that comes accompanied by 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 Alzheimer's disease is follow at [facility] and has been stable with Exelon patch. He is awake, alert and oriented to time, person and place. He said it was Tuesday and it is a Tuesday. Has more agitation than usual and goes to bed around 20:00 and wakes up around midnight. MRI of the brain done recently shows severe cerebral volume loss characteristic of Alzheimer's disease. Blood pressure stable. Has cardiomyopathy with last echocardiogram done June 2023 showing ejection fraction of 50-55% but is currently euvolemic. He does not need diuretics anymore. Denies any chest pain, shortness on breath or leg swelling. He uses compression stockings. Has atrial fibrillation and family declines chronic anticoagulation. This was evaluated by Cardiology. [facility] Medical History (Updated 09/27/23 @ 14:23 by Sabrina Lin MD) Atrial fibrillation HTN (hypertension) Surgical History History of mitral valve repair Family History Father CVD (cardiovascular disease) Mother CVD (cardiovascular disease) Social History Housing: Condominium Alcohol intake: current Alcohol intake frequency: holidays/special occasions only Patient Tobacco Use Status: Never used Tobacco e-Cigarette/Vaping Use: Never Used Second Hand Smoke Exposure: Yes service: Yes ([id number]) Current occupational status: retired Cognitive needs: No Hearing needs: Yes Vision needs: Yes Questionnaire Thrive Questionnaire Date Thrive assessed: 06/29/23 CORI-7 AMB Questionnaire CORI-7 Date CORI - 7 assessed: 06/29/23 Source: Developed by Drs. Stewart Dugan, Lala Henderson, Og Murphy and colleagues, with an educational ronni from [employer]. Review of Systems Const All systems reviewed & are unremarkable except as noted in HPI and below Eyes Reports no additional complaints, Denies change in vision and Denies other visual disturbances Card Denies chest pain at rest, Denies chest pain with activity, Denies edema, Denies irregular heart rhythm, Denies claudication, Denies dyspnea, Denies dyspnea on exertion, Denies orthopnea, Denies paroxysmal nocturnal dyspnea and Denies slow heart rate Resp Denies cough, Denies dyspnea and Denies dyspnea on exertion Physical exam (Primary Care) Vital Signs: Last Vital Signs BP 112/76 09/27/23 13:49 BMI result Body Mass Index 23.3 Tobacco/Smoking Status: Tobacco use Status Tobacco use date assessed 06/29/23 09/27/23 13:53 Patient Tobacco Use Status Never used Tobacco 09/27/23 13:53 e-Cigarette/Vaping Use Never Used 09/27/23 13:53 Thrive Assessment: Date of Thrive Assessment Date Thrive assessed 06/29/23 09/27/23 13:53 Resp Effort & Inspection: normal respiratory effort Auscultation: clear to auscultation bilaterally Cardio Jugular venous distension: no JVD Rate: regular rate Rhythm: regular rhythm Heart sounds: S1 normal heart sound present and S2 normal heart sound present Extrem General: Yes full ROM Assessment and Plan Assessment & Plan (1) Alzheimer disease: Code(s): G30.9 - Alzheimer's disease, unspecified; F02.80 - Dementia in other diseases classified elsewhere, unspecified severity, without behavioral disturbance, psychotic disturbance, mood disturbance, and anxiety Plan: Continue Exelon patch. Follow-up with [facility]. (2) Atrial fibrillation: Code(s): I48.91 - Unspecified atrial fibrillation Qualifiers: Atrial fibrillation type: paroxysmal Qualified Code(s): I48.0 - Paroxysmal atrial fibrillation Plan: Follow-up with Cardiology. Patient declines anticoagulation. (3) HTN (hypertension): Code(s): I10 - Essential (primary) hypertension Qualifiers: Hypertension type: primary hypertension Qualified Code(s): I10 - Essential (primary) hypertension Plan: Continue valsartan. Blood pressure goal is equal or less than 130/80. (4) Cardiomyopathy: Comment: Reduced RV systolic function Code(s): I42.9 - Cardiomyopathy, unspecified Qualifiers: Cardiomyopathy type: unspecified Qualified Code(s): I42.9 - Card iomyopathy, unspecified Plan: Patient is euvolemic therefore no need for diuretics. The goal is to not gain 5 lb in a week. Follow-up with Cardiology as needed. Coding Level of Care Code Est Pt Level 4 (83791) Diagnoses Alzheimer disease G30.9; F02.80 Paroxysmal atrial fibrillation I48.0 Atrial fibrillation type: paroxysmal Primary hypertension I10 Hypertension type: primary hypertension Cardiomyopathy, unspecified type I42.9 Cardiomyopathy type: unspecified Time Spent (min) 25
== END 2023-09-27 14:16 | disposition home or self-care (01) ==
PROVIDERS: PCP Internal Medicine; Visit Provider Internal Medicine
DX: G30.9 Alzheimer's disease, unspecified (principal); F02.80 Dementia in other diseases classified elsewhere, unspecified severity, without behavioral disturbance, psychotic disturbance, mood disturbance, and anxiety; I48.0 Paroxysmal atrial fibrillation; I42.9 Cardiomyopathy, unspecified; I10 Essential (primary) hypertension
CPT/HCPCS: 99214

== ENCOUNTER 2024-02-01 13:56 | Outpatient (AMB) | payer MEDICARE, SELFPAY ==
--- NOTE | 2024-02-01 14:14 | MHC.PC.OV ---
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 Accompanied by: Spouse Allergies No Known Allergies [NKA] Allergy (Mild, Verified 02/01/24 14:33) NONE Medication List - Last Reconciled 02/01/24 by Sabrina Lin MD ascorbic acid (vitamin C) 250 mg PO DAILY [bed alarm As directed] magnesium 250 mg PO DAILY multivitamin,or-yosy-wguqlkqn (Complete Multivitamin tablet) 1 tab PO DAILY awzwd-6-lrw-epa-fish oil-coQ10 1,900-640-50 mg/2.5 gram grams PO rivastigmine 1 patch topical DAILY 30 days valsartan 80 mg PO DAILY 90 days Tobacco use date assessed: 06/29/23 Fall risk assessment: No Falls in past year Last assessed Fall Risk: 02/01/24 Dental Screening Dental Screen Date: 02/01/24 Did you have a dental visit in the last 12 months?: No Did you have a dental problem in the last 6 months where you did not have access to dental care?: No Was dental information given to patient?: Patient has dentist HPI HPI Comments History of Present Illness Details This is an 83-year-old male with Alzheimer's disease and hypertension that comes today accompanied by complaining of left knee pain and making a locking noise that started about a week or 2 ago. He is able to walk and will see ortho this week. Alzheimer's disease is follow by Neurology. Blood pressure well controlled. Today he is awake, alert and oriented to time, person and place. [facility] Medical History Atrial fibrillation HTN (hypertension) Surgical History History of mitral valve repair Family History Father CVD (cardiovascular disease) Mother CVD (cardiovascular disease) Social History (Updated 02/01/24 @ 14:38 by Sabrina Lin MD) [facility] Alcohol intake: current Alcohol intake frequency: holidays/special occasions only Alcohol type: beer Patient Tobacco Use Status: Never used Tobacco e-Cigarette/Vaping Use: Never Used Second Hand Smoke Exposure: Yes service: Yes ([id number]) Current occupational status: retired Cognitive needs: No Hearing needs: Yes Vision needs: Yes Questionnaire Thrive Questionnaire Date Thrive assessed: 06/29/23 Are you currently unemployed and looking for a job?: No CORI-7 AMB Questionnaire CORI-7 Date CORI - 7 assessed: 06/29/23 Source: Developed by Drs. Stewart Dugan, Lala Henderson, Og Murphy and colleagues, with an educational ronni from [employer]. Review of Systems Const All systems reviewed & are unremarkable except as noted in HPI and below Card Denies chest pain at rest, Denies chest pain with activity, Denies edema, Denies irregular heart rhythm, Denies claudication, Denies dyspnea, Denies dyspnea on exertion, Denies orthopnea, Denies paroxysmal nocturnal dyspnea and Denies slow heart rate Resp Denies cough, Denies dyspnea and Denies dyspnea on exertion GI Denies abdominal pain, Denies change in bowel habits, Denies excessive flatus, Denies nausea and Denies vomiting Physical exam (Primary Care) Vital Signs: Last Vital Signs BP 122/70 02/01/24 14:15 BMI result Body Mass Index 23.9 Tobacco/Smoking Status: Tobacco use Status Tobacco use date assessed 06/29/23 02/01/24 14:17 Patient Tobacco Use Status Never used Tobacco 02/01/24 14:38 e-Cigarette/Vaping Use Never Used 02/01/24 14:38 Thrive Assessment: Date of Thrive Assessment Date Thrive assessed 06/29/23 02/01/24 14:17 Const Orientation/consciousness: patient oriented x3 Resp Effort & Inspection: normal respiratory effort Auscultation: clear to auscultation bilaterally Cardio Jugular venous distension: no JVD Rate: regular rate Rhythm: regular rhythm Heart sounds: S1 normal heart sound present and S2 normal heart sound present Neuro General: patient oriented x3 Extrem General: Yes full ROM Assessment and Plan Assessment & Plan (1) Left knee pain: Code(s): M25.562 - Pain in left knee Plan: Follow-up with ortho. (2) Alzheimer disease: Code(s): G30.9 - Alzheimer's disease, unspecified; F02.80 - Dementia in other diseases classified elsewhere, unspecified severity, without behavioral disturbance, psychotic disturbance, mood disturbance, and anxiety Plan: Continue rivastigmine. Follow-up with Neurology. (3) HTN (hypertension): Code(s): I10 - Essential (primary) hypertension Qualifiers: Hypertension type: primary hypertension Qualified Code(s): I10 - Essential (primary) hypertension Plan: Continue valsartan. Blood pressure goal is equal or less than 130/80. Coding Level of Care Code Est Pt Level 3 (41837) Complex EM visit Add On G2211 Diagnoses Left knee pain M25.562 Alzheimer disease G30.9; F02.80 Primary hypertension I10 Hypertension type: primary hypertension Time Spent (min) 19
[2024-02-01 14:15] VITALS: BP 122/70; BMI 23.9
== END 2024-02-01 14:47 | disposition home or self-care (01) ==
PROVIDERS: PCP Internal Medicine; Visit Provider Internal Medicine
DX: M25.562 Pain in left knee (principal); G30.9 Alzheimer's disease, unspecified; F02.80 Dementia in other diseases classified elsewhere, unspecified severity, without behavioral disturbance, psychotic disturbance, mood disturbance, and anxiety; I10 Essential (primary) hypertension

== ENCOUNTER → 2024-02-01 13:56 | Outpatient (BNVA) | payer MEDICARE, SELFPAY | PROVIDERS: PCP Internal Medicine; Visit Provider Internal Medicine | DX: G30.9 Alzheimer's disease, unspecified (principal); F02.80 Dementia in other diseases classified elsewhere, unspecified severity, without behavioral disturbance, psychotic disturbance, mood disturbance, and anxiety; I10 Essential (primary) hypertension; M25.562 Pain in left knee | CPT/HCPCS: 99212 ==

== ENCOUNTER 2024-02-03 08:45 | Outpatient (REF) | payer MEDICARE, SELFPAY ==
--- NOTE | ~2024-02-03 | XR_ITS ---
EXAMINATION: XR KNEE, RIGHT XR KNEE, LEFT CLINICAL INFORMATION: M25.561 - Pain in right knee COMPARISON: None available. TECHNIQUE: AP view right knee. Three views of the left knee. FINDINGS: No fracture, dislocation, or suspicious bone lesion. 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 Tibial, femoral components appear well seated, in anatomic alignment on both sides. There is been left knee patellar resurfacing. There are distal quadriceps tendon calcifications and an associated superior patellar enthesophyte. Moderate sized suprapatellar joint effusion noted on the lateral projection. Mild vascular calcification seen in the soft tissues. XR/XR knee LT 3V IMPRESSION: 1. No acute bony abnormalities in either knee.. 2. Moderate sized suprapatellar joint effusion left knee. 3. Total right knee arthroplasties without complication. Electronically signed by: Luke Rooney MD 04/14/2024 09:28 PM SHAMAR PARIKH
--- NOTE | ~2024-02-03 | XR_ITS ---
EXAMINATION: XR KNEE, RIGHT XR KNEE, LEFT CLINICAL INFORMATION: M25.561 - Pain in right knee COMPARISON: None available. TECHNIQUE: AP view right knee. Three views of the left knee. FINDINGS: No fracture, dislocation, or suspicious bone lesion. 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 Tibial, femoral components appear well seated, in anatomic alignment on both sides. There is been left knee patellar resurfacing. There are distal quadriceps tendon calcifications and an associated superior patellar enthesophyte. Moderate sized suprapatellar joint effusion noted on the lateral projection. Mild vascular calcification seen in the soft tissues. XR/XR knee RT 1V IMPRESSION: 1. No acute bony abnormalities in either knee.. 2. Moderate sized suprapatellar joint effusion left knee. 3. Total right knee arthroplasties without complication. Electronically signed by: Luke Rooney MD 04/14/2024 09:28 PM SHAMAR
== END 2024-02-03 08:46 | disposition home or self-care (01) ==
LOC: HO.XRAY 08:45
PROVIDERS: PCP Internal Medicine; Visit Provider Physician Assistant
DX: T84.84XA Pain due to internal orthopedic prosthetic devices, implants and grafts, initial encounter (principal); Z96.653 Presence of artificial knee joint, bilateral
CPT/HCPCS: 73560; 73562; 99202

== ENCOUNTER → 2024-02-03 08:47 | Outpatient (BNV) | payer MEDICARE, SELFPAY | PROVIDERS: PCP Internal Medicine; Visit Provider Radiology Diagnostic Radiology | DX: M25.461 Effusion, right knee (principal); M25.462 Effusion, left knee | CPT/HCPCS: 73560; 73562 ==

== ENCOUNTER 2024-02-03 09:10 | Outpatient (AMB) | payer MEDICARE, SELFPAY ==
[2024-02-03 09:14] VITALS: BMI 23.9
--- NOTE | 2024-02-03 09:14 | MHC.OFFVIS ---
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 Patient reports left knee pain has been present for the past 2-3 weeks. States having cracking in his knee. He is unable to bear weight and has to use a cane to ambulate. Denies injury. Hx of bilateral TKA at [facility], he believes his left knee was done in 2008. 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 He has a history of bilateral TKA at [facility] and he believes his left TKA was done in 2008. He reports he had attended physical therapy for his knee and started having pain about 3 weeks after the sessions where he heard a crack in his knee while walking towards the bedroom. He currently states he has pain and cracking in his knee. He is unable to weight bear and experiences instability in his knee resulting in a fall. He also experiences significant swelling after the fall. He uses a cane to ambulate. He has not had any injury in the past. He has a history of Alzheimer?s disease. [facility] Medical History Atrial fibrillation HTN (hypertension) Surgical History History of mitral valve repair Family History Father CVD (cardiovascular disease) Mother CVD (cardiovascular disease) Social History (Updated 02/01/24 @ 14:38 by Sabrina Lin MD) [facility] Alcohol intake: current Alcohol intake frequency: holidays/special occasions only Alcohol type: beer Patient Tobacco Use Status: Never used Tobacco e-Cigarette/Vaping Use: Never Used Second Hand Smoke Exposure: Yes service: Yes ([id number]) Current occupational status: retired Cognitive needs: No Hearing needs: Yes Vision needs: Yes Review of Systems Const All systems reviewed & are unremarkable except as noted in HPI and below Physical Exam Vital Signs: BMI result Body Mass Index 23.9 Const General: cooperative, healthy appearing, comfortable, no acute distress, well developed and alert Orientation/consciousness: patient oriented x3 HEENT Head: Yes normal to inspection, Yes normocephalic and Yes atraumatic Eyes General: appearance normal, both eyes and all related structures Resp Effort & Inspection: normal respiratory effort and able to speak in complete sentences Cardio Rate: regular rate Peripheral pulses: Peripheral pulses 2+ throughout GI Palpation (GI): Soft to palpation Skin Lesions: no lesions Rashes: no rashes Neuro General: patient oriented x3 Extrem Other: Left knee: Surgical scar is present. He has full ROM with audible clunk that does not elicit pain. There is some laxity with varus and valgus stress when compared to the contralateral side. No evidence of infection. Results Reviewed Results Reviewed: X-rays of both knees significant for stable total joint arthroplasty without signs of loosening or fracture. Assessment & Plan Assessment & Plan (1) Presence of artificial knee joint, bilateral: Code(s): Z96.653 - Presence of artificial knee joint, bilateral Category: Surgical Plan Dr. Mustafa was available to see the patient with me today. We did explain what appears to be laxity of knee which does not cause any further damage or require surgical intervention. I recommend he stay active and continue to work on quad strengthening. He will see me back if symptoms worsen or he has any concerns. Orders: Orders XR knee LT 3V Today M25.562 - Pain in left knee XR knee RT 1V Today M25.561 - Pain in right knee Patient Instructions: Scribed for Merary Souza PA-C, by Vasquez Mobley medical underwriter, on 02/03/2024 at 9:00 AM EST.? I, Merary Souza PA-C, have personally reviewed and agree with the information entered by the scribe. Coding Level of Care Code New Pt Level 4 (63740) Complex EM visit Add On G2211 Diagnoses Presence of artificial knee joint, bilateral Z96.653
== END 2024-02-03 11:45 | disposition home or self-care (01) ==
PROVIDERS: PCP Internal Medicine; Visit Provider Physician Assistant
DX: M25.562 Pain in left knee (principal); Z96.653 Presence of artificial knee joint, bilateral
CPT/HCPCS: 99202; G2211

== ENCOUNTER → 2024-07-16 14:40 | Outpatient (REF) | payer MEDICARE, SELFPAY ==
--- NOTE | 2024-07-16 14:44 | CA_ITS ---
Transthoracic Echocardiogram Patient (Last, First, Middle): Damaso Richards T Gender: Male Date of : 1940 Age: 83 Procedure Date: 07/16/2024 Procedure Type: Transthoracic Echocardiogram Location: OP Height: 177. cm Weight: 76.66 kg BSA: 1.94 m2 Heart Rate: 85 bpm BP: 140 / 60 mmHg Leather Cutter: STACI Referring MD: Maverick Rosas MD Deck Cadet: Maverick Rosas MD Symptoms: Z98.890 - Other specified postprocedural states Study Quality: Technically Difficult ECG Rhythm: Atrial Fibrillation Conclusions: - 1. Normal LV ejection fraction 55-60% 2. At least moderately dilated left atrium 3. Mitral valve repair appears intact 4. Normal RV systolic pressure 5. Mildly dilated ascending aorta Findings Left Ventricle Normal left ventricular size, thickness, and systolic function. The visually estimated ejection fraction is between 55-60%. Diastolic function is indeterminate on the basis of available data. Right Ventricle The right ventricle was not well visualized. Mildly increased right ventricular cavity size. Atria The left atrium is moderately dilated. Interatrial shunt cannot be excluded. The right atrium was not well visualized. Aortic Valve The aortic valve was not well visualized. There is mild calcification of the aortic valve. There is no aortic valve stenosis. There is no aortic valve regurgitation. Mitral Valve There is mild anterior mitral leaflet thickening. There is no mitral valve regurgitation. There is no mitral valve stenosis. densely refractile posterior annular shadow most consistent with mitral annular ring. mitral valve repair appears intact Pulmonic Valve The pulmonic valve was not well visualized. Tricuspid Valve Likely normal tricuspid valve structure and function. There is mild tricuspid valve regurgitation. The right ventricular systolic pressure is 20 mmHg. Normal right atrial pressure. There is no evidence of pulmonary hypertension. Great Vessels The pulmonary artery was not well visualized. There is mild dilatation of the ascending aorta measuring 3.80 cm. Venous The inferior vena cava is normal in size and collapses greater than 50% with inspiration. Pericardium/Pleural The pericardium was not well visualized. Prior Study Comparison Changes noted compared to prior study dated: 07/11/2023. LV function in his marginally improved Measurements 2D Linear Measurements IVSd: 0.84 0.6-0.9/0.6-1.0 cm LVIDd: 4.83 3.9-5.3/4.2-5.9 cm LVIDd Index: 2.49 2.4-3.2/2.2-3.1 cm/m2 LVIDs: 3.86 2.0-3.6 cm LVPWd: 1.01 0.7-1.1 cm LA Diam: 4.40 2.7-3.8/3.0-4.0 cm LAIDs Index: 2.27 1.5-2.3 cm/m2 LV Mass: 192.82 67-162/88-224 g LV Mass Index: 99.39 43-95/49-115 g/m2 LVOT Diam: 2.30 3.0+(-)1.3 cm 2D Systolic Function EF 4C: 61.30 >55% EF 2C: 55.70 >55% EF BiP: 57.90 >55% Mitral Valve MV VTI: 0.32 MV Pk Hunter: 1.36 MV Mn Hunter: 0.74 MV Pk Grad: 7.00 MV Mn Grad: 3.00 MV Pk E: 1.30 MV Decel Time: 281.00 E'Lateral: 14.90 E'Medial: 8.92 E/E' Med: 14.60 E/E' Lat: 8.70 PHT: 82.00 MVA PHT: 2.68 MVA Continuity: 1.97 Decel [place]: 4.62 Aortic Valve AoV Pk Hunter: 0.93 AoV Mn Hunter: 0.69 AoV VTI: 0.21 AoV Pk Grad: 3.00 Aov Mn Grad: 2.00 PREMA Cont.VTI: 2.99 LVOT LVOT Pk Hunter: 0.68 LVOT Mn Hunter: 0.49 LVOT VTI: 0.15 LVOT Pk Grad: 2.00 LVOT Mn Grad: 1.00 LVOT Diam: 2.30 LVOT Area: 4.15 Diastolic Function MV Pk E: 1.30 E'Medial: 8.92 E/E' Med: 14.60 E' Laterial: 14.90 E/E' Lat: 8.70 Right Ventricle TAPSE (mm): 13.70 TVS' Hunter: 7.25 Tricuspid Valve TR Pk Hunter: 2.06 TR Pk Grad: 17.00 RA Press: 3.00 RVSP: 20.00 Great Vessels Aorta Sinus of Valsalva: 3.70 2.0-3.5 cm Ao Asc: 3.80 2.1-3.4 cm Ao Arch: 3.40 Pulmonary Valve PV Pk Hunter: 0.69 Peak PV Grad: 2.00 Updated in Other Vendor System with Status of Final Maverick Rosas MD electronically signed on 07/17/2024 12:28:24 PM with status of Final
--- OUTSIDE RECORDS SUMMARY | 2024-07-16 17:29 | XMS_ITS | Clinical Summary ---
Author Organization Unknown Care Team Providers Care Pricing Analyst Name Role Phone ALEX NIETO MD, DIONI Unavailable Unavailable SOHAIL PATEL, BRAULIO Unavailable Unavailable Payers Payer Name Policy Type Policy Number Effective Date Expira tion Date [facility] [id number] [place]ICAID [place] [id number] MEDICARE - [facility]/MD - [facility] [id number] Problems Condition Name Condition Details Condition Category Status Onset Date Resolution Date Last Treatment Date Treating Clinician Comments ALZHEIMER'S DISEASE, UNSPECIFIED Active 12-22 00:00: 00 DEM IN OTH DIS CLASSD ELSWHR,UNSP SEV,W/O BEH/PSYCH/MO OD/ANX Active 12-22 00:00: 00 UNSPECIFIED ATRIAL FIBRILLATION Active 12-22 00:00: 00 ESSENTIAL (PRIMARY) HYPERTENSION Active 12-22 00:00: 00 CARDIOMYOPAT HY, UNSPECIFIED Active 12-22 00:00: 00 REPEATED FALLS Active 12-22 00:00: 00 Allergies, Adverse Reactions, Alerts Allergy Name Allergy Type Status Severity Reaction(s) Onset Date Inactive Date Treating Clinician Comments DUST Propensity to adverse reactions Active 2023-12 21:51:5 4 HORSE Propensity to adverse reactions Active 2023-12 21:52:0 3 BIRD FEATHERS Propensity to adverse reactions Active 2023-12 21:51:4 4 Medications Ordered Medication Name Filled Medication Name Start Date Stop Date Current Medication? Ordering Clinician Indication Dosage Frequency Signature (SIG) Comments Components ascorbic acid (vitamin C) 500 mg tablet 12-22 00:00: 00 Yes [id number] 1 tablet DAILY 1 tablet DAILY (route: oral) Med Classific ation: Electroly te Balance-N utritiona l Products Colace 100 mg capsule 12-22 00:00: 00 Yes [id number] 1 capsule DAILY 1 capsule DAILY (route: oral) Med Classific ation: Gastroint estinal Therapy Agents Exelon Patch 4.6 mg/24 hour transdermal 12-22 00:00: 00 Yes [id number] 1 patch, transde rmal 24 hours DAILY 1 patch, transderma l 24 hours DAILY (route: transderma l) Med Classific ation: Cognitive Disorder Therapy Iron (ferrous sulfate) 325 mg (65 mg iron) tablet 12-22 00:00: 00 Yes [id number] 1 tablet EVERY OTHER DAY 1 tablet EVERY OTHER DAY (route: oral) Med Classific ation: Electroly te Balance-N utritiona l Products L-Lysine 500 mg tablet 12-22 00:00: 00 Yes [id number] 1 tablet DAILY 1 tablet DAILY (route: oral) Med Classific ation: Electroly te Balance-N utritiona l Products Mag Glycinate 100 mg tablet 12-22 00:00: 00 Yes [id number] 1 tablet DAILY 1 tablet DAILY (route: oral) Med Classific ation: Electroly te Balance-N utritiona l Products multivitami n with minerals-fe rrous fumarate 15 mg iron tablet 12-22 00:00: 00 Yes [id number] 1 tablet DAILY 1 tablet DAILY (route: oral) Med Classific ation: Electroly te Balance-N utritiona l Products NAC 600 mg capsule 12-22 00:00: 00 Yes [id number] 1 capsule DAILY 1 capsule DAILY (route: oral) Med Classific ation: Electroly te Balance-N utritiona l Products [place]-3 (with docosapenta enoic acid) 1,050 mg-1,200 mg capsule 12-22 00:00: 00 Yes [id number] 1 capsule DAILY 1 capsule DAILY (route: oral) Med Classific ation: Cardiovas cular Therapy Agents Q-absorb 100 mg capsule 12-22 00:00: 00 Yes [id number] 1 capsule DAILY 1 capsule DAILY (route: oral) Med Classific ation: Alternati ve Therapy valsartan 80 mg tablet 12-22 00:00: 00 Yes [id number] 1 tablet DAILY 1 tablet DAILY (route: oral) Med Classific ation: Cardiovas cular Therapy Agents Vitamin D3 25 mcg (1,000 unit) tablet 12-22 00:00: 00 Yes [id number] 1 tablet DAILY 1 tablet DAILY (route: oral) Med Classific ation: Electroly te Balance-N utritiona l Products vitamin K2 45 mcg capsule 12-22 00:00: 00 Yes [id number] 1 capsule DAILY 1 capsule DAILY (route: oral) Med Classific ation: Electroly te Balance-N utritiona l Products Vital Signs Vital Name Observation Time Observation Value Commen ts Temperature 2024-07-12 12:34:00.000 97.6 [degF] Temperature 2024-07-05 12:38:00.000 97.3 [degF] Temperature 2024-06-28 12:54:00.000 97.6 [degF] Temperature 2024-06-21 12:40:00.000 97.3 [degF] Pulse 2024-07-12 12:34:00.000 60 /min Pulse 2024-07-05 12:38:00.000 75 /min Pulse 2024-06-28 12:54:00.000 78 /min Pulse 2024-06-21 12:40:00.000 60 /min O2 Saturation (%) 2024-07-12 12:35:00.000 96 % O2 Saturation (%) 2024-07-05 12:39:00.000 96 % O2 Saturation (%) 2024-06-28 12:55:00.000 97 % Respirations 2024-07-12 12:34:00.000 16 /min Respirations 2024-07-05 12:38:00.000 16 /min Respirations 2024-06-28 12:54:00.000 16 /min Respirations 2024-06-21 12:40:00.000 16 /min Systolic Blood Pressure 2024-07-12 12:34:00.000 122 mm [Hg] Systolic Blood Pressure 2024-07-05 12:38:00.000 120 mm [Hg] Systolic Blood Pressure 2024-06-28 12:54:00.000 122 mm [Hg] Systolic Blood Pressure 2024-06-21 12:42:00.000 120 mm [Hg] Diastolic Blood Pressure 2024-07-12 12:34:00.000 70 mm [Hg] Diastolic Blood Pressure 2024-07-05 12:38:00.000 60 mm [Hg] Diastolic Blood Pressure 2024-06-28 12:54:00.000 78 mm [Hg] Diastolic Blood Pressure 2024-06-21 12:42:00.000 60 mm [Hg] Plan of Treatment Planned Activity Planned Date Details Comments Future Scheduled Test SKILLED NU RSE TO EVALUATE PATIENT, IDENTIFY PRIMARY AND CO-MORBID CONDITIONS CODED PER CODING GUIDELINES, AND DEVELOP PATIENT SPECIFIC PLAN OF CARE THAT INCLUDES PATIENT GOAL FOR HOME HEALTH. [code = SKILLED NURSE TO EVALUATE PATIENT, IDENTIFY PRIMARY AND CO-MORBID CONDITIONS CODED PER CODING GUIDELINES, AND DEVELOP PATIENT SPECIFIC PLAN OF CARE THAT INCLUDES PATIENT GOAL FOR HOME HEALTH.] Future Scheduled Test SKILLED NU RSE TO O/A OF PATIENTS MENTAL/BEHAVIORAL STATUS, ASSESS VITAL SIGNS WEEKLY ALLOW 2 PRNS FOR MEDICATION MANAGEMENT. [code = SKILLED NURSE TO O/A OF PATIENTS MENTAL/BEHAVIORAL STATUS, ASSESS VITAL SIGNS WEEKLY ALLOW 2 PRNS FOR MEDICATION MANAGEMENT.] Future Scheduled Test SKILLED NU RSE FOR O/A OF NEUROCOGNITIVE AND BEHAVIORAL STATUS [code = SKILLED NURSE FOR O/A OF NEUROCOGNITIVE AND BEHAVIORAL STATUS] Future Scheduled Test SKILLED NU RSE FOR O/A OF GENERAL HEALTH STATUS OF PAIN, CARDIAC, RESPIRATORY, GASTROINTESTINAL, GENITOURINARY, SKIN, NEUROLOGIC, ENDOCRINE SYSTEMS TO IDENTIFY CHANGES ASSOCIATED WITH EXACERBATION FOR EARLY INTERVENTION OF COMPLICATIONS WEEKLY [code = SKILLED NURSE FOR O/A OF GENERAL HEALTH STATUS OF PAIN, CARDIAC, RESPIRATORY, GASTROINTESTINAL, GENITOURINARY, SKIN, NEUROLOGIC, ENDOCRINE SYSTEMS TO IDENTIFY CHANGES ASSOCIATED WITH EXACERBATION FOR EARLY INTERVENTION OF COMPLICATIONS WEEKLY] Future Scheduled Test SKILLED NU RSE FOR O/A AND SKILLED TEACHING RELATED TO MANAGEMENT OF DEPRESSIVE SYMPTOMS AND/OR DEPRESSION. SN TO REPORT SIGNIFICANT CHANGE IN DEPRESSIVE SYMPTOMS TO CLINICAL PROVIDER FOR EARLY INTERVENTION. [code = SKILLED NURSE FOR O/A AND SKILLED TEACHING RELATED TO MANAGEMENT OF DEPRESSIVE SYMPTOMS AND/OR DEPRESSION. SN TO REPORT SIGNIFICANT CHANGE IN DEPRESSIVE SYMPTOMS TO CLINICAL PROVIDER FOR EARLY INTERVENTION.] Future Scheduled Test SKILLED NU RSE TO PERFORM HOME SAFETY AND FALL ASSESSMENT AND PROVIDE INSTRUCTION TO IMPLEMENT HOME SAFETY AND FALL PREVENTION STRATEGIES. [code = SKILLED NURSE TO PERFORM HOME SAFETY AND FALL ASSESSMENT AND PROVIDE INSTRUCTION TO IMPLEMENT HOME SAFETY AND FALL PREVENTION STRATEGIES.] Future Scheduled Test SKILLED NU RSE TO REVIEW PATIENT MEDICATIONS. INSTRUCT PATIENT/CAREGIVER ON MONITORING OF EFFECTIVENESS, ADVERSE DRUG REACTIONS, SIDE EFFECTS OF ALL MEDICATIONS (PRESCRIPTION/-OTC), AND HOW AND WHEN TO REPORT PROBLEMS. [code = SKILLED NURSE TO REVIEW PATIENT MEDICATIONS. INSTRUCT PATIENT/CAREGIVER ON MONITORING OF EFFECTIVENESS, ADVERSE DRUG REACTIONS, SIDE EFFECTS OF ALL MEDICATIONS (PRESCRIPTION/-OTC), AND HOW AND WHEN TO REPORT PROBLEMS.] Future Scheduled Test SKILLED NU RSE TO ASSESS PATIENTS PSYCHOSOCIAL STATUS TO IDENTIFY POTENTIAL ISSUES THAT MAY COMPLICATE THE PROVISION OF THE PLAN OF CARE INCLUDING THE PATIENTS ABILITY TO ACCESS COMMUNITY RESOURCES AND PSYCHOSOCIAL SUPPORT SERVICES. [code = SKILLED NURSE TO ASSESS PATIENTS PSYCHOSOCIAL STATUS TO IDENTIFY POTENTIAL ISSUES THAT MAY COMPLICATE THE PROVISION OF THE PLAN OF CARE INCLUDING THE PATIENTS ABILITY TO ACCESS COMMUNITY RESOURCES AND PSYCHOSOCIAL SUPPORT SERVICES.] Future Scheduled Test SN TO INST RUCT CAREGIVER ON MANAGEMENT OF DEMENTIA UTILIZING THE [facility] CARE SPECIALTY PROGRAM. [code = SN TO INSTRUCT CAREGIVER ON MANAGEMENT OF DEMENTIA UTILIZING THE [facility].] Future Scheduled Test SKILLED NU RSE WILL MAINTAIN SITUATIONAL AWARENESS FOR SAFETY AND WILL NOTIFY CLINICAL PILOT PLANT SUPERVISOR AND PHYSICIAN/PROVIDER WITH ANY CHANGE IN CONDITION. [code = SKILLED NURSE WILL MAINTAIN SITUATIONAL AWARENESS FOR SAFETY AND WILL NOTIFY CLINICAL PILOT PLANT SUPERVISOR AND PHYSICIAN/PROVIDER WITH ANY CHANGE IN CONDITION.] Goal 2024-02-16 Patient Goal - TO BE FREE FR OM FALLS Goal 2024-04-19 Patient Goal - TO BE FREE FR OM FALLS Goal 2024-06-15 Patient Goal - T O BE FREE FROM FALLS TO REMAIN AT HOME Goal Patient Goal - T O BE FREE FROM FALLS TO REMAIN AT HOME Goal Provider Goal - A PLAN OF CARE WILL BE ESTABLISHED THAT MEETS PATIENT'S CUSTODIAL NEEDS AND INCLUDES PATIENT GOAL FOR HOME HEALTH. Goal Provider Goal - ALTERED MENTAL/BEHAVIORAL STATUS WILL BE IDENTIFIED PROMPTLY AND INTERVENTION INITIATED QUICKLY TO MINIMIZE ASSOCIATED RISKS THROUGHOUT CERTIFICATION PERIOD. Goal Provider Goal - PATIENT WILL BE ABLE TO PERFORM DAILY FUNCTIONS AND MAINTAIN OPTIMAL BEHAVIORAL/NEUROCOGNITIVE STATUS THROUGHOUT CERTIFICATION PERIOD. Goal Provider Goal - CHANGE IN GENERAL HEALTH STATUS WILL BE IDENTIFIED AND REPORTED TO PHYSICIAN FOR PROMPT INTERVENTION TO MINIMIZE ASSOCIATED RISKS THROUGHOUT CERTIFICATION PERIOD. Goal Provider Goal - PATIENT WILL REMAIN SAFE WITHOUT DECOMPENSATION IN DEPRESSIVE CONDITION, WHILE MAINTAINING OPTIMAL LEVEL OF MENTAL HEALTH AND WELL BEING THROUGHOUT CERTIFICATION PERIOD. Goal Provider Goal - PATIENT/CAREGIVER WILL VERBALIZE/DEMONSTRATE EFFECTIVE HOME SAFETY AND FALL PREVENTION STRATEGIES THROUGHOUT CERTIFICATION PERIOD. Goal Provider Goal - PATIENT/CAREGIVER WILL VERBALIZE UNDERSTANDING OF EDUCATION PROVIDED ON MEDICATIONS BY THE END OF THE CERTIFICATION PERIOD. Goal Provider Goal - PSYCHOSOCIAL NEEDS WILL BE IDENTIFIED AND PLAN IMPLEMENTED TO MINIMIZE RISK THROUGHOUT CERTIFICATION PERIOD. Goal Provider Goal - CAREGIVER WILL DEMONSTRATE MANAGEMENT AND UNDERSTANDING OF DEMENTIA A RESULT OF PARTICIPATION IN THE [facility]. Goal Provider Goal - PATIENT WILL REMAIN SAFE IN THE COMMUNITY AND WILL BE FREE OF DANGER TO SELF AND OTHERS THROUGHOUT THE CERTIFICATION PERIOD. Progress Notes Progress Notes <paragraph>[Visit Date: 2024 by BRAULIO SAUCEDA RN]:</paragraph><paragraph>07/12/24-WEEKLY CUSTODIAL VISIT MADE TO ASSESS MENTAL HEALTH STATUS SAFETY MEDICATION COMPLIANCE. NO FALLS OR EMERGENCY ROOM VISITS OCCUR IN THE PAST WEEK PATIENT ALERT TO PERSON AND PLACE. PATIENT LIVES WITH HIS WHO IS HIS PRIMARY CAREGIVER . [employer] DENIES PAIN PATIENT HAS NOT EXHIBITED ANY AGITATION TOWARDS PATIENT HAS BEEN SLEEPING BUT WILL WAKE UP EARLY IN THE MORNING. PATIENT HAS AN APPOINTMENT Tuesday07/16/24 FOR AN ECHOCARDIOGRAM</paragraph> Encounters Start Date/Time End Date/Time Encounter Type Admission Type Attending Clinicians Care Facility Care Department Encounter ID Discharge Date Discharge Status Discharge Condition Discharge Reason Percent Goals Met 2023-12-23 00:00:00 2024-08-18 00:00:00 Outpatient RECERTIFIC ATBRAULIO CARDONA [facility] [id number]
--- OUTSIDE RECORDS SUMMARY | 2024-07-16 17:29 | XMS_ITS ---
Author Organization [facility] Address [address] [place] [address] Care Team Providers Care Undertaker Helper Name Role Phone Zenon BELTRAN, Sabrina Primary Care Provider Unavail able Kim Henry Unavailable [phone] REASON FOR VISIT At Risk Footcare, Painful Nail(s) aggravated by shoes and causing difficulty standing/walking. Medications Medication SIG (Take, Route, Frequency, Duration) Notes Start Date End Date Status Ciclopirox Olamine 0.77 % 1 application to affected area Externally Twice a day to effected areas on feet for 30 days Active Valsartan 80 MG 1 tablet Orally Once a day for 30 day(s) Active Problems Problem Type SNOMED Code ICD Code Onset Dates Problem Status W/U Status Risk Notes Problem Atherosclerosis of atka artery of both lower extremities, with unspecified presence of clinical manifestation (I70.203) Active confirmed Q7(A), Q8(2B), Q9(1B,2C) Procedures Procedure Date Ordered Date Performed Result Body Sit e 03006-XPGYLSZ NAIL, 6 OR MORE 04/11/2024 N/A 72092-IPUQ SKIN LESION 04/11/2024 N/A Encounters Encounter Location Date Provider Diagnosis [facility] [address] [place] [address] 04/11/2024 Kim Henry Atherosclerosis of atka artery of both lower extremities, with unspecified presence of clinical manifestation I70.203 ; Tinea unguium B35.1 ; Pain in right toe(s) M79.674 and Pain in left toe(s) M79.675 Assessments Encounter Date Diagnosis (ICD Code) Assessment Notes Treatment Notes Treatment Clinical Notes Section Notes 04/11/2024 Atherosclerosis of atka artery of both lower extremities, with unspecified presence of clinical manifestation (ICD-10 - I70.203) Q7(A), Q8(2B), Q9(1B,2C) 04/11/2024 Tinea unguium (ICD-10 - B35.1) 04/11/2024 Pain in right toe(s) (ICD-10 - M79.674) 04/11/2024 Pain in left toe(s) (ICD-10 - M79.675) Plan Of Treatment Pending Test Test Name Order Date 56715-DHCOFQQ NAIL, 6 OR MORE 04/11/2024 18482-SIVX SKIN LESION 04/11/2024 Next Appt Details Follow Up: prn, Reason: Provider Name:Kim Cantrellcharissa miranda, 10/02/2024 02:45:00 PM, [address] [facility], [address], [place], [address], Procedure Notes * Category Sub-Category Detail Notes Debride Nail 6-10 Nail debridement Performance o f this nail treatment by a nonprofessional would put this patients foot and overall health at risk. Therefore, debridement to affected nail(s), as described in exam, was performed extensively to reduce/remove overall nail length, girth, thickness, subungual debris, and necrotic tissue, by manual and/or electrical means through the use of a nail nipper and/or dremel-type sapphire stylus grinder, to a more viable healthy nail plate or bed tissue 6-10 nails in total. Silver nitrate was used for any petechial bleeding as necessary. Definitive antifungal treatment options, both pharmaceutical and surgical, have been reviewed and discussed with the patient. The patient solely prefers the use of intermittent/as needed professional debridement services for their nail condition and understands the need for additional periodic treatments to maintain effectiveness in symptomatic relief - 79088 Keratoma Treatment Parring or Cutting o f Benign Hyperkeratotic Lesion(s) (-55) 1 Lesion - The Benign hyperkeratotic lesion, 1 in total, as stated and described in exam, was pared, and/or cut utilizing a sterile 15 blade, tissue nippers, and/or power dremel instrumentation - 38692, Q8 Progress Notes * Nicky MEDINA: 9 (83 yo M)Acc No.[id number]:04/11/2024 Progress Note Patient:?Damaso MEDINA Provider:?Kim Henry DPM :1940???Age:83 Y???Sex:Male Tru e:04/11/2024 Address:[address] [place] [address] et [address], [facility] Pcp:Sabrina Yarbrough MD Subjective: * Chief Complaints: * ???At Risk FootcarePainful N ail(s) aggravated by shoes and causing difficulty standing/walking. * HPI: ???At Risk footcare:?Pt States Last PCP Visit:?Date?09/14/2023 * Medical History:? * Surgical History:? * Hospitalization/Major Diagno stic Procedure:? * Medications:?TakingCiclopiro x Olamine 0.77 % Cream 1 application to affected area Externally Twice a day to effected areas on feet Valsartan 80 MG Tablet 1 tablet Orally Once a day Taking Ciclopirox Olamine 0.77 % Cream 1 application to affected area Externally Twice a day to effected areas on feet Taking Valsartan 80 MG Tablet 1 tablet Orally Once a day Objective: * Vitals:? * Examination: ???Vascular: ?DP PULSES(B):?1/4, B/L.?PT PULSES(B):? 0/4, B/L.?CAPILLARY FILL TIME:? delayed, all digits, B/L.?TROPHIC CONDITION-TEXTURE/ELASTICITY/TURGOR/HAIR GROWTH(B):? decreased, fragile, thin, shiny skin, with sparse to absent hair growth, B/L.?TEMPERTURE GRADIENT(C):? decreased, cool to cool, proximal to distal, B/L.?PIGMENTATION:?mottled, B/L.?EDEMA(C):?absent, B/L.?CLAUDICATION(C):?denies, B/L.?REST PAIN:?denies, B/L.?PARESTHESIA(C):?absent, B/L.?BURNING(C):?absent, B/L.?Nails: ?NAILS are:?Elongated, overgrown, dystrophic, lytic, greater than 3mm thick, discolored and friable with crumbly malodorous subungual debris, with pain on palpation, 1-5 B/L.?Dermatologic: ?SKIN FINDINGS:?Skin exam reveals Keratotic lesion(s) located at Medial 1st metatarsal head, Left.? Assessment: * Assessment: 1.?Atherosclerosis of atka artery of both lower extremities, with unspecified presence of clinical manifestation - I70.203 (Primary)???Notes :Q7(A), Q8(2B), Q9(1B,2C)???2.?Tinea unguium - B35.1???3.?Pain in right toe(s) - M79.674???4.?Pain in left toe(s) - M79.675??? Plan: * Treatment: 2.?Tinea unguium?Procedure: 75148-[id number] NAIL, 6 OR MORE * Procedures:?Debride Nail 6-10:?Nail debridement?Performance of this nail treatment by a nonprofessional would put this patients foot and overall health at risk. Therefore, debridement to affected nail(s), as described in exam, was performed extensively to reduce/remove overall nail length, girth, thickness, subungual debris, and necrotic tissue, by manual and/or electrical means through the use of a nail nipper and/or dremel-type sapphire stylus grinder, to a more viable healthy nail plate or bed tissue 6-10 nails in total. Silver nitrate was used for any petechial bleeding as necessary. Definitive antifungal treatment options, both pharmaceutical and surgical, have been reviewed and discussed with the patient. The patient solely prefers the use of intermittent/as needed professional debridement services for their nail condition and understands the need for additional periodic treatments to maintain effectiveness in symptomatic relief - 01570.?Keratoma Treatment:?Parring or Cutting of Benign Hyperkeratotic Lesion(s)?(-55) 1 Lesion - The Benign hyperkeratotic lesion, 1 in total, as stated and described in exam, was pared, and/or cut utilizing a sterile 15 blade, tissue nippers, and/or power dremel instrumentation - 76398, Q8.? * Procedure Codes:?40737 DEBRI DE NAIL, 6 OR MORE, Modifiers: XS 07835 TRIM SKIN LESION, Modifiers: XS , Q8 * Follow Up:?prn * Images: * Sign off status: Completed true * Provider:?Kim Henry DPM Date:?06/11/2023 Generated for Celeste prince/Manpreet/eTransmitting on:?07/16/2024 05:29 PM EST History and Physical Notes * HPI (History of Present Illness) Category Sub-Category Detail Notes Category Not es At Risk footcare Pt States Last PCP Visit: Date: Examination Category Sub-Category Detail Notes Category Not es Dermatologic SKIN FINDINGS: Skin exam reveal s Keratotic lesion(s) located at Medial 1st metatarsal head, Left Vascular DP PULSES (B): 1/4, B/L PT PULSES (B): 0/4, B/L CAPILLARY FILL TIME: delayed, all digits , B/L TEMPERTURE GRADIENT (C): decreased, cool to cool, proximal to distal, B/L TROPHIC CONDITION-TEXTURE/ELASTICITY/TURGOR/HAIR GROWTH (B): decreased, fragile, thin, shiny skin, wi th sparse to absent hair growth, B/L EDEMA (C): absent, B/L CLAUDICATION (C): denies, B/L REST PAIN: denies, B/L PIGMENTATION: mottled, B/L PARESTHESIA (C): absent, B/L BURNING (C): absent, B/L Nails NAILS are: Elongated, overg rown, dystrophic, lytic, greater than 3mm thick, discolored and friable with crumbly malodorous subungual debris, with pain on palpation, 1-5 B/L
--- OUTSIDE RECORDS SUMMARY | 2024-07-16 17:29 | XMS_ITS | Encounter Summary ---
Author Name [facility] Organization [facility] Address [address] [place] [address] Care Team Providers Care Mc Kay Stitcher Name Role Phone ABHILASH VALDEZ Primary Care Provider Unavailabl e Insurance Providers: All historical and current Section Date Range: From patient's date of to the date document was created. This section includes the names of all active insurance providers for the patient. Insurance Provider Type of Coverage Plan Name Start of Policy Coverage End of Policy Coverage Group Number Member ID Insurance Provider's Telephone Number Policy Neves's Name Patient's Relationship to Policy Neves [employer] M[employer] ([facility]) Nov 13, 2022 [id number] JEANNIE RICHARDS PATIENT Selected Encounter This section includes the information on record at [place] for the Encounter. Date/Time Encounter Type Encounter Description Reason Provider Source Apr 05, 2024 02:00 PM OFFICE O/P EST MOD 30 MIN PRIMARY CARE/MEDICINE ICD-10-CM I10 Essential (primary) hypertension ABHILASH VALDEZ Noel Encounter Template Text not used by [place] Assessments - Encounter Diagnoses This section includes the primary and secondary diagnoses documented for the Encounter. Date/Time Primary/Secondary Diagnosis Diagnosis Name Provider Source Apr 06, 2024 02:08 PM PRIMARY Essential (primary) hypertension ABHILASH VALDEZ [facility] [place] [facility] Apr 06, 2024 02:08 PM SECONDARY Allergic rhinitis, unspecified FURCOLO,ABHILASH [facility] [place] [facility] Apr 06, 2024 02:08 PM SECONDARY Alzheimer's disease, unspecified FURCOLO,ABHILASH [facility] [place] [facility] Apr 06, 2024 02:08 PM SECONDARY Dem in oth dis classd elswhr,unsp sev,w/o beh/psych/mood/anx FURCOLO,ABHILASH [facility] [place] [facility] Apr 06, 2024 02:08 PM SECONDARY Sensorineural hearing loss, bilateral FURCOLO,ABHILASH [facility] [place] [facility] Vital Signs: All taken on the encounter date This section contains inpatient and outpatient Vital Signs collected on the date of the Encounter. Date/Time Temperature Pulse Blood Pressure Respiratory Rate SP02 Pain Height Weight Body Mass Index Source Apr 05, 2024 02:12 PM 97.4 69 144/67 16 100 0 178 25 [place] [facility] [place] [facility] Social History: Smoking Status (Most current) and Tobacco Use (All prior to encounter date) This section includes the most current, and the historical, smoking and tobacco- related health factors from the [place] facility where the Encounter took place. Current Smoking Status This section includes the most current smoking, or tobacco-related health factor, from the [place] facility where the Encounter took place. Date/Time Current Smoking Status Comment Eva ity Apr 05, 2024 02:00 PM VA-TOBACCO NEVER U SED CIGARETTES [facility] [place] [facility] Tobacco Use History This section includes a history of the smoking, or tobacco-related health factors, that were collected on or before the date of the Encounter. The data comes from the [place] facility where the Encounter took place. Date/Time Smoking Status/Tobacco Use Comment F acility Apr 05, 2024 02:00 PM VA-TOBACCO NEVER U SED OTHER TYPE [facility] [place] [facility] Apr 05, 2023 02:00 PM VA-TOBACCO FORMER USER [facility] [place] [facility] Apr 05, 2023 02:00 PM VA-TOBACCO QUIT 15 YRS OR MORE [facility] [place] [facility] Apr 06, 2022 02:00 PM VA-TOBACCO NEVER USED [facility] [place] [facility] Apr 08, 2021 10:00 AM VA-TOBACCO NEVER USED [facility] Encounter Notes: All associated encounter notes This section contains the clinical notes associated to the Encounter. Date/Time Encounter Note(s) Provider Source Apr 05, 2024 03:00 PM PREVENTIVE MEDICIN E NURSING NOTE: LOCAL TITLE: CLINICAL REMINDERS/NURSING STANDARD TITLE: PREVENTIVE MEDICINE NURSING NOTE DATE OF NOTE: APR 05, 2024@15:00 ENTRY DATE: APR 05, 2024@15:00:38 AUTHOR: LUIS MARIE EXP COSIGNER: URGENCY: STATUS: COMPLETED Suicide Screen: C-SSRS Screening [place] Suicide Severity Rating Scale (C-SSRS) screener 1. Over the past month, have you wished you were or wished you could go to sleep and not wake up? No 2. Over the past month, have you had any actual thoughts of killing yourself? No 3. Over the past month, have you been thinking about how you might do this? Response not required due to responses to other questions. 4. Over the past month, have you had these thoughts and had some intention of acting on them? Response not required due to responses to other questions. 5. Over the past month, have you started to work out or worked out the details of how to kill yourself? Response not required due to responses to other questions. 6. If yes, at any time in the past month did you intend to carry out this plan? Response not required due to responses to other questions. 7. In your lifetime, have you ever done anything, started to do anything, or prepared to do anything to end your life (for example, collected pills, obtained a gun, gave away valuables, went to the roof but didn't jump)? No 8. If YES, was this within the past 3 months? Response not required due to responses to other questions. Homelessness/Food Insecurity Screen: In the past 2 months, have you been living in stable housing that you own, rent, or stay in as part of a household? Yes - Living in stable housing. Are you worried or concerned that in the next 2 months you may NOT have stable housing that you own, rent, or stay in as part of a household? No - Not worried about housing near future The [place] reports the following: Within the past 12 months, you worried whether your food would run out before you got money to buy more. Never true Within the past 12 months, the food you bought just didn't last and you didn't have money to get more. Never true Depression Screening: Perform PHQ-2 A PHQ-2 screen was performed. The score was 0 which is a negative screen for depression. Over the past two weeks, how often have you been bothered by the following problems? 1. Little interest or pleasure in doing things Not at all 2. Feeling down, depressed, or hopeless Not at all Tobacco Use Screening: The patient has never smoked cigarettes. The patient has never used other types of tobacco. Influenza Immunization: The patient has received the seasonal influenza vaccine for the current season at another location. Documented: INFLUENZA, UNSPECIFIED FORMULATION Historical Date Administered: Mar 25, 2024 Series: Complete Outside Location: Outside Healthcare Provider Information Source: FROM OTHER REGISTRY Alcohol Use Screen (AUDIT-C): Alcohol Screen: SCREEN FOR ALCOHOL (AUDIT-C) An alcohol screening test (AUDIT-C) was negative (score=0). 1. How often did you have a drink containing alcohol in the past year? Consider a drink to be a 12 ounce can or bottle of regular beer, 8 ounces of malt liquor, a 5 ounce glass of table wine, or a 1.5 ounce shot of liquor (like scotch, gin, or vodka). Never 2. How many drinks containing alcohol did you have on a typical day when you were drinking in the past year? Response not required due to responses to other questions. 3. How often did you have six or more drinks on one occasion in the past year? Response not required due to responses to other questions. Sexual Orientation: The patient thinks of their sexual orientation as: Straight or Heterosexual /candice/ LUIS MARIE LPN License Practical Nurse Signed: 04/05/2024 15:03 LUIS MARIE [facility] [place] [facility] Apr 05, 2024 02:21 PM ADDENDUM: LOCAL TITLE: Addendum STANDARD TITLE: ADDENDUM DATE OF NOTE: APR 05, 2024@14:21:13 ENTRY DATE: APR 05, 2024@14:21:14 AUTHOR: ABHILASH VALDEZ EXP COSIGNER: URGENCY: STATUS: COMPLETED this appears to be in wrong chart- wrong patient /es/ ABHILASH VALDEZ D.O. PHYSICIAN Signed: 04/05/2024 14:21 Receipt Acknowledged By: 04/05/2024 16:03 /candice/ LUIS MARIE LPN License Practical Nurse --- Original Document --- 03/23/24 FAX/MAIL RECEIVED: Document Received On: Mar Document Type: Office Visit Note Date of Service: Mar Facility and or Provider: [facility] Contact Information: PCP of Record: ABHILASH VALDEZ Next visit with PCP: 04/05/2024 14:00 CWM/NO/PACT EIGHT Primary Care May keep copies of this document for up to 14 days and send the original for scanning. HISTORY OF PRESENT ILLNESS (HPI) HPI Kun is a 69-year-old gentleman referred to the office by Dr. Lauro Gaona in consultation for cryoablation of a right renal mass. Recent CT imaging demonstrated a 3 cm complex cyst in the right kidney which was concerning for renal cell carcinoma. The patient reports gross hematuria. He has undergone a workup for the gross hematuria which was reportedly negative. He denies flank pain. He has a history of prostate cancer and underwent a prostatectomy. ASSESSMENT/PLAN Total time spent on the patient was 30 minutes, with more than 50% of the time spent in answering questions and educating the patient about their disease. All correspondence, labs, H&P's and medical records that came over from the patient's providers have been reviewed by me. Assessment/Plan In summary, Kun is a 69-year-old gentleman referred to the office to discuss cryoablation of a right renal mass. He has a 3cm right renal mass concerning for renal cell carcinoma. We personally reviewed the images and determined that the patient would be an appropriate candidate for cryoablation. We reviewed the procedure in detail including risks, benefits, and expected outcomes. The patient would like to proceed and will be scheduled accordingly. Thank you for allowing us to participate in the care of your patient. /candice/ LUIS MARIE LPN License Practical Nurse Signed: 03/23/2024 08:36 04/05/2024 ADDENDUM STATUS: UNSIGNED You may not VIEW this UNSIGNED Addendum. ABHILASH VALDEZ [facility] [place] [facility] Apr 05, 2024 02:14 PM PHYSICIAN NOTE: LOCAL TITLE: MD NOTE STANDARD TITLE: PHYSICIAN NOTE DATE OF NOTE: APR 05, 2024@14:14 ENTRY DATE: APR 05, 2024@14:14:48 AUTHOR: ABHILASH VALDEZ EXP COSIGNER: URGENCY: STATUS: COMPLETED SARA RICHARDS is a 83 year old WHITE MALE who is being seen today in primary care for routine follow up. == CARE TEAM == Community Primary Care Provider: Dr. Nishi Sanches [place] Specialists: Community Specialists: geriatrics- Dr. Winn (prev Dr. Calloway) ophtho- Dr. Rodriguez == HISTORY == PERIOD OF SERVICE - [place] [facility] CONNECTED % - NONE FOUND == HISTORY OF PRESENT ILLNESS == Patient presents today for routine yearly f/u no major setbacks. his accompanies him today as he has advanced dementia- she has been diagnosed with Parkinsons disease. he morbility is more compromised- she does all the driving, etc. no falls, no recent hospitalizations == RELEVANT PAST MEDICAL HISTORY == Active problems - Computerized Problem List is the source for the followin. Essential hypertension 2. Alzheimer's disease 3. Allergic rhinitis 4. Hearing loss == PAST SURGICAL HISTORY == aortic and mitral valve repair 2000 == SOCIAL HISTORY == Marital Status: - Bernadette- diagnosed with Parkinsons 2022 Children: 4, 2 live nearby (daughter Trang Richards, trousseau consultant is [facility]) Lives with: - all on one floor Mobility: walks with a cane, no longer drives, no falls, able to shower himesmld- needs ques by - organizes medications == ALLERGIES == Patient has answered NKA == MEDICATIONS == VA and Non VA meds were reconciled with the patient who left with a corrected copy. Active and Recently Outpatient Medications (excluding Supplies): Active Non-VA Medications Status 1) Non-VA RIVASTIGMINE 9.5MG/24HR PATCH 1 PATCH TO SKIN ACTIVE ONCE DAILY 2) Non-VA VALSARTAN 80MG TAB 80MG BY MOUTH ONCE DAILY ACTIVE == REVIEW OF SYMPTOMS == POSITIVE FOR: NEGATIVE FOR: CONSTITUTION: no weight loss/gain, fatigue, fevers, night sweats HEENT: no vision problems, hearing loss,swallowing difficulties, sinus pain CV: no chest pain, palpitations, dyspnea on exertion, orthopnea RESP: no cough, shortness of breath, wheezing GI: no abdominal pain, N/V/D, constipation, blood in stool, normal appetite : no urinary frequency, nocturia, hematuria MUSC: no joint pain, joint swelling, muscle aches NEURO: no headaches, dizziness, memory loss, tremor, weakness PSYCH: no depression, anxiety, suicidal or homicidal thoughts SKIN: no rash, new skin lesions == PHYSICAL EXAM == Vitals: - - - - - - - B/P: 144/67 (04/05/2024 14:12) pulse: 69 (04/05/2024 14:12) resp: 16 (04/05/2024 14:12) temp: 97.4 F [36.3 C] (04/05/2024 14:12) Ht: 71 in [180.3 cm] (04/05/2023 13:46) Wgt: 178 lb [80.74 kg] (04/05/2024 14:12) BMI: BMI: 24.9 Exam: - - - - - - - NAD RRR S1 S2 LCTA bilat no LE edema uses a cane == RECENT LABS == n/a == ASSESSMENT AND PLAN == Active problems - Computerized Problem List is the source for the followin. Essential hypertension- no falls, advanced dementia- will not increase valsartan 2. Alzheimer's disease advanced. no behavioral issues, very pleasant, jokes, agreeable. with wifes direction/queing- he is fairly independent with dressing/eating/moving. 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 good family support and involvement. 3. Allergic rhinitis 4. Hearing loss- wearing older hearing aides as the newer ones created much more confusion == FOLLOW UP == f/u in 1 year VISIT TYPE: a MODERATE complexity visit where 30 minutes was spent in direct patient care, review of records and documentation. Falls & Incontinence Screen: Falls Screen: During the past 12 months, did the patient report any falls? 4. No falls within the past year. Incontinence Screen: During the past 12 months, has the patient has any characteristics of incontinence (ability, voiding, leakage, etc.)? No incontinence. /candice/ ABHILASH VALDEZ D.O. PHYSICIAN Signed: 04/06/2024 14:08 ABHILASH VALDEZ [facility]
--- OUTSIDE RECORDS SUMMARY | 2024-07-16 17:29 | XMS_ITS ---
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 Medications Medication SIG (Take, Route, Frequency, Duration) Notes Start Date End Date Status Valsartan 80 MG 1 tablet Orally Once a day for 30 day(s) Active Ciclopirox Olamine 0.77 % 1 application to affected area Externally Twice a day to effected areas on feet for 30 days Active Social History Tobacco Use: Social History Observation Description Date Details (start date - stop date) Never Smoker NA - NA Tobacco use other than smoking: Question Answer Notes Are you an other tobacco user? No Tobacco Control (Standard) Question Answer Notes Tobacco use: Nonsmoker Additional Findings: Tobacco non-user Current no nsmoker AUDIT-C (Standard) Question Answer Notes Did you have a drink containing alcohol in the p ast year? No Points 0 Interpretation Negative Vital Signs Height 5 ft 11 in in 06/18/2024 Weight 168 lbs 06/18/2024 BMI 23.43 kg/m2 06/18/2024 Blood pressure systolic 120 mm Hg 06/18/19 25 Blood pressure diastolic 80 mm Hg 025 Procedures Procedure Date Ordered Date Performed Result Body Sit e 30517-IKLNSPK NAIL, 6 OR MORE 06/18/2024 N/A 74884-GJJG SKIN LESIONS, 2 TO 4 06/18/2024 N/A Encounters Encounter Location Date [facility] [address] [place] [address] 06/18/2024 Kim Henry Atherosclerosis of [place] artery of both lower extremities, with unspecified presence of clinical manifestation I70.203 ; Tinea unguium B35.1 ; Pain in right toe(s) M79.674 and Pain in left toe(s) M79.675 Assessments Encounter Date Diagnosis (ICD Code) Assessment Notes Treatment Notes Treatment Clinical Notes Section Notes 06/18/2024 Atherosclerosis of [place] artery of both lower extremities, with unspecified presence of clinical manifestation (ICD-10 - I70.203) Q7(A), Q8(2B), Q9(1B,2C) 06/18/2024 Tinea unguium (ICD-10 - B35.1) 06/18/2024 Pain in right toe(s) (ICD-10 - M79.674) 06/18/2024 Pain in left toe(s) (ICD-10 - M79.675) Plan Of Treatment Pending Test Test Name Order Date 38738-UHTQNHO NAIL, 6 OR MORE 06/18/2024 08835-UHVU SKIN LESIONS, 2 TO 4 06/18/19 Next Appt Details Follow Up: 3 Months, Reason: Provider Name:Kim West ruth, 10/02/2024 02:45:00 PM, [address] [facility], [address], [place], [address], Procedure Notes * Category Sub-Category Detail Notes Debride Nail 6-10 Nail debridement Due to the cl inical pathology outlined in the exam findings, performance of this nail treatment is medically necessary as its management by an unskilled/untrained nonprofessional would put this patients foot and overall health at risk. Therefore, debridement to affected nail(s), as described in exam ( TA, T1, T2, T3, T4, T5, T6, T7, T8, T9, ), was performed exclusively by the physician of record to reduce/remove overall nail length, girth, thickness, subungual debris, and necrotic tissue, by manual and/or electrical means through the use of a nail nipper and/or dremel-type outer diameter grinder tool, to a more viable healthy nail plate [...] to maintain effectiveness in symptomatic relief - 61070 Keratoma Treatment Parring or Cutting o f Benign Hyperkeratotic Lesion(s) (-56) 2-4 Lesions - Due to the at risk nature of the patients medical condition as documented in the exam findings, performance of this keratoderma treatment is medically necessary as its management by an unskilled/untrained nonprofessional would put this patients foot and overall health at risk. Therefore, the benign hyperkeratotic lesions, ( 2 ) in total, locations as stated and described in the exam ( medial first metatarsal head B/L ), were pared, and/or cut utilizing a sterile 15 blade, tissue nippers, and/or power dremel instrumentation by the physician of record - 57834, Q8 Progress Notes * Damaso MEDINADOB: (83 yo M)Acc No.[id number]:06/18/2024 Progress Note Patient:?Damaso MEDINA Provider:?Kim Henry DPM :1940???Age:83 Y???Sex:Male Tru e:06/18/2024 Address:[address] [place], [place] [id number] Pcp:Sabrina Yarbrough MD Subjective: * Chief Complaints: * ???At Risk FootcarePainful N ail(s) aggravated by shoes and causing difficulty standing/walking. * HPI: ???At Risk footcare:?Pt States Last PCP Visit:?Date?09/14/2023 * ROS:?General/Constitutional:?Nausea?denies.?Vomiting?denies.?Hunger Thirst?denies.?Loss appetite?denies.?Chills?denies.?Fatigue?denies.?Fever?denies.?Night Sweats?denies.?Unexplained weight loss?denies.?Unexplained weight gain?denies.?HEENTM:?Dentures?denies.?Dizziness?denies.?Glasses/contacts?admits.?Retinopathy?de nies.?Blurred/double vision?denies.?TMJ?denies.?Discharge/drainage?denies.?Implants?denies.?Sore throat?denies.?Dental implants?denies.?Hard of hearing ?admits.?Difficulty chewing/swallowing/speaking?denies.?Nose bleeds?denies.?Sore mouth?denies.?Respiratory:?On Oxygen?denies.?Pneumonia/pleurisy?denies.?Bronchitis?denies.?Emphysema?denies.?C oughing?denies.?Cough blood?denies.?Shortness of breath?denies.?Wheezing?denies.?Cardiovascular:?Pacemaker?denies.?MVP?denies.?WPW?denies.?CHF?denies.?Heart attack?denies.?Septal defect?denies.?Rapid beat?denies.?Chest pain ?denies.?Atrial Fib.?denies.?Murmur/Palpitations?denies.?Gastrointestinal:?Hemorrhoids?denies.?Stomach/Abdominal pain?denies.?Dark blood stool?denies.?Irritable bowel ?denies.?Constipation?denies.?Diarrhea?denies.?Hematology:?Swelling?denies.?Clots?denies.?Varicose Veins?denies.?Bruising?denies.?Bleeding problem?denies.?Genitourinary:?Blood urine?denies.?Frequent/Painfu/urination/bladder control?denies.?Kidney stones?denies.?Infection (UTI)?denies.?Nephropathy?denies.?sex trans dis (STD)?denies.?Prostate?denies.?Musculoskeletal:?Hammertoes?denies.?Bunions?denies.?Back Pain?denies.?Muscle Cramps/ Resting?denies.?Muscle cramps / walking?denies.?Generalized aches and pains?denies.?Weakness?denies.?Integ.:?Hugo?denies.?Scars?denies.?Corns/calluses?denies.?Ingrown nails?denies.?Painful nails?denies.?Open Sores?denies.?Rashes?denies.?Neurologic:?Difficulty sleeping?denies.?Brain disorder?denies.?Numbness?denies.?Balance trouble?denies.?Confusion?denies.?Fainting/blackouts?denies.?Tingling?denies.?Tr emors?denies.? * Medical History:? * Surgical History:?right knee replacement [id number] knee replacement 08-16-11 * Hospitalization/Major Diagno stic Procedure:?Denies Past Hospitalization * Family History:?Mother: dece ased, diagnosed with Unspecified heart disease.?Father: , diagnosed with Unspecified heart disease.? * Social History:?Tobacco Use:?Tobacco use other than smoking?Are you an other tobacco user??No ?Tobacco Control (Standard)?Tobacco use:?Nonsmoker ?Additional Findings: Tobacco non-user?Current nonsmoker ???Drugs/Alcohol:?Drugs?Have you used drugs other than those for medical reasons in the past 12 months??No ???Miscellaneous:?Caffeine: yes. ?Children: yes. ?Exercise: yes, walking, housework. ?Marital status: . ?Occupation: Retired-[employer]. ???Drug/Alcohol:?AUDIT-C (Standard)?Did you have a drink containing alcohol in the past year??No ?Points?0 ?Interpretation?Negative * Medications:?TakingCiclopiro x Olamine 0.77 % Cream 1 application to affected area Externally Twice a day to effected areas on feet Valsartan 80 MG Tablet 1 tablet Orally Once a day Medication List reviewed and reconciled with the patientTaking Ciclopirox Olamine 0.77 % Cream 1 application to affected area Externally Twice a day to effected areas on feet Taking Valsartan 80 MG Tablet 1 tablet Orally Once a day Medication List reviewed and reconciled with the patient * Allergies:?N.K.D.A.yes[Aller gies Verified] Objective: * Vitals:?Ht: 5 ft 11 in, Wt:1 68, BMI: 23.43, Shoe size:11.5, BP:120/80mm Hg, Wt- k.2 kg. * Examination: ???Vascular: ?DP PULSES (B):?1/4, B/L.?PT PULSES (B):? 0/4, B/L.?CAPILLARY FILL TIME:? delayed, all digits, B/L.?TROPHIC CONDITION-TEXTURE/ELASTICITY/TURGOR/HAIR GROWTH (B):? decreased, fragile, thin, shiny skin, with sparse to absent hair growth, B/L.?TEMPERTURE GRADIENT (C):? decreased, cool to cool, proximal to distal, B/L.?PIGMENTATION:?mottled, B/L.?EDEMA (C):?absent, B/L.?CLAUDICATION (C):?denies, B/L.?REST PAIN:?denies, B/L.?PARESTHESIA (C):?absent, B/L.?BURNING (C):?absent, B/L.?Nails: ?NAILS are:?Elongated, overgrown, dystrophic, lytic, greater than 3mm thick, discolored and friable with crumbly malodorous subungual debris, with pain on palpation,?, TA, T1, T2, T3, T4, T5, T6, T7, T8, T9.?Dermatologic: ?SKIN FINDINGS:?Skin exam reveals Keratotic lesion(s) located at Medial 1st metatarsal head, B/L.? Assessment: * Assessment: 1.?Atherosclerosis of [place] artery of both lower extremities, with unspecified presence of clinical manifestation - I70.203 (Primary)???Notes :Q7(A), Q8(2B), Q9(1B,2C)???2.?Tinea unguium - B35.1???3.?Pain in right toe(s) - M79.674???4.?Pain in left toe(s) - M79.675??? Plan: * Treatment: 2.?Tinea unguium?Procedure: 44314-[id number] NAIL, 6 OR MORE * Procedures:?Debride Nail 6-10:?Nail debridement?Due to the clinical pathology outlined in the exam findings, performance of this nail treatment is medically necessary as its management by an unskilled/untrained nonprofessional would put this patients foot and overall health at risk. Therefore, debridement to affected nail(s), as described in exam (? TA, T1, T2, T3, T4, T5, T6, T7, T8, T9, ), was performed exclusively by the physician of record to reduce/remove overall nail length, girth, thickness, subungual debris, and necrotic tissue, by manual and/or electrical means through the use of a nail nipper and/or dremel-type outer diameter grinder tool, to a more viable healthy nail plate or bed tissue 6- 10 nails in total. Silver nitrate was used for any petechial bleeding as necessary. Definitive antifungal treatment options, both pharmaceutical and surgical, have been reviewed and discussed with the patient. The patient solely prefers the use of intermittent/as needed professional debridement services for their nail condition and understands the need for additional periodic treatments to maintain effectiveness in symptomatic relief - 85878.?Keratoma Treatment:?Parring or Cutting of Benign Hyperkeratotic Lesion(s)?(-56) 2-4 Lesions - Due to the at risk nature of the patients medical condition as documented in the exam findings, performance of this keratoderma treatment is medically necessary as its management by an unskilled/untrained nonprofessional would put this patients foot and overall health at risk. Therefore, the benign hyperkeratotic lesions, ( 2 ) in total, locations as stated and described in the exam ( medial first metatarsal head B/L ), were pared, and/or cut utilizing a sterile 15 blade, tissue nippers, and/or power dremel instrumentation by the physician of record - 77121, Q8.? * Procedure Codes:?18530 DEBRI DE NAIL, 6 OR MORE, Modifiers: XS 51831 TRIM SKIN LESIONS, 2 TO 4, Modifiers: XS , Q8 * Follow Up:?3 Months * Images: * Sign off status: Completed true * Provider:?Kim Henry DPM Date:?0 06/18/2024 Generated for Celeste prince/Manpreet/Frederick on:?07/16/2024 05:28 PM EST History and Physical Notes * HPI (History of Present Illness) Category Sub-Category Detail Notes Category Not es At Risk footcare Pt States Last PCP Visit: Date: Examination Category Sub-Category Detail Notes Category Not es Dermatologic SKIN FINDINGS: Skin exam reveal s Keratotic lesion(s) located at Medial 1st metatarsal head, B/L Vascular DP PULSES (B): 1/4, B/L PT [...] malodorous subungual debris, with pain on palpation, , TA, T1, T2, T3, T4, T5, T6, T7, T8, T9
--- OUTSIDE RECORDS SUMMARY | 2024-07-16 17:29 | XMS_ITS ---
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 Name Role Phone Zenon BELTRAN, Sabrina Primary Care Provider Unavail Kim Brown Unavailable [phone] REASON FOR VISIT not approved for pts insurance Encounters Encounter Location Date Provider Diagnosis [address] [address] 03/13/2024 Kim Henry Plan Of Treatment Next Appt Details Provider Name:Kim miranda, 10/02/2024 02:45:00 PM, [address] [facility], [address] [facility], [place], [address], Progress Notes * Damaso MEDINADOB: (83 yo M)Acc No.[id number]:03/13/2024 Progress Note Patient:?Damaso MEDINA Provider:?Kim Henry DPM :1940???Age:83 Y???Sex:Male Tru e:03/13/2024 Address:[address] [place] [address] [address], [place] [facility] Pcp:Sabrina Yarbrough MD Subjective: * Chief Complaints: * ???1. Not approved for pts i nsurance. * Medical History:? Objective: * Vitals:? Assessment: Plan: * Treatment: * Images: * The named appointment provid er may or may not be the originator of this progress note, and it is not deemed complete until electronically signed by the appointment provider. Sign off status: Pending * Provider:?Kim Henry DPM Date:?1 Generated for Celeste prince/Manpreet/Frederick on:?07/16/2024 05:29 PM EST
--- OUTSIDE RECORDS SUMMARY | 2024-07-16 17:29 | XMS_ITS | Patient Health Record ---
Author Organization [facility] Ulisses jeremy Suarez Address [address] [place] [address] Care Team Providers Care Cashier Parking Lot Name Role Phone Zenon BELTRAN, Sabrina Primary Care Provider Unavail able Kim Henry Unavailable [phone] Yury Rosario Unavailable [phone] Allergies No Known Allergies Reason For Referral No Information Medications Medication SIG (Take, Route, Frequency, Duration) Notes Start Date End Date Status Valsartan 80 MG 1 tablet Orally Once a day for 30 day(s) Active Ciclopirox Olamine 0.77 % 1 application to affected area Externally Twice a day to effected areas on feet for 30 days Active Immunizations Vaccine Route Administration Date Status Comme nts COVID-19 Moderna Vaccine Unknown 02/06/2022 Administered 06/18/20,07/16/20 04/10/21 Influenza Unknown 02/13/2021 Administered Social History Tobacco Use: Social History Observation [...] ast year? No Points 0 Interpretation Negative Problems Problem Type SNOMED Code ICD Code Onset Dates Problem Status W/U Status Risk Notes Problem Acquired hallux valgus (50132781) Hallux valgus (acquired), right foot (M20.11) Active confirmed Problem Acquired hammer toe of right foot (94408674102 76556) Other hammer toe(s) (acquired), right foot (M20.41) Active confirmed Problem Atherosclerosis of [place] artery of both lower extremities, with unspecified presence of clinical manifestation (I70.203) Active confirmed Q7(A), Q8(2B), Q9(1B,2C ) Problem 44176469 Dementia without behavioral disturbance, unspecified dementia type (F03.90) Active confirmed Vital Signs Blood pressure diastolic 80 mm Hg 06/18/2024 Height 5 ft 11 in in 06/18/2024 Blood pressure systolic 120 mm Hg 06/18/2024 Weight 168 lbs 06/18/2024 BMI 23.43 kg/m2 06/18/2024 Procedures Procedure Date Ordered Date Performed Result Body Sit e 48283-DONSRBP NAIL, 6 OR MORE 04/11/2024 N/A 86776-SFYV SKIN LESION 04/11/2024 N/A 19905-JHFYQSJ NAIL, 6 OR MORE 06/18/2024 N/A 44875-IGCF SKIN LESIONS, 2 TO 4 06/18/2024 N/A Encounters Encounter Location Date Provider Diagnosis [address] [address] 09/08/2023 Yury Rosario Tinea unguium B35.1 ; Pain in right toe(s) M79.674 ; Pain in left toe(s) M79.675 ; Skin disease L98.9 ; Dementia without behavioral disturbance, unspecified dementia type F03.90 ; Hallux valgus (acquired), right foot M20.11 ; Tinea pedis B35.3 ; Other hammer toe(s) (acquired), right foot M20.41 and Localized edema R60.[address] [address] 12/15/2023 Yury Rosario Tinea unguium B35.1 ; Pain in right toe(s) M79.674 ; Pain in left toe(s) M79.675 ; Skin disease L98.9 ; Dementia without behavioral disturbance, unspecified dementia type F03.90 ; Hallux valgus (acquired), right foot M20.11 ; Tinea pedis B35.3 ; Other hammer toe(s) (acquired), right foot M20.41 ; Localized edema R60.0 and Ingrowing nail L60.[address] [address] 04/11/2024 Kim Henry Atherosclerosis of [place] artery of both lower extremities, with unspecified presence of clinical manifestation I70.203 ; Tinea unguium B35.1 ; Pain in right toe(s) M79.674 and Pain in left toe(s) M79.[address] [address] 06/18/2024 Kim Henry Atherosclerosis of [place] artery of both lower extremities, with unspecified presence of clinical manifestation I70.203 ; Tinea unguium B35.1 ; Pain in right toe(s) M79.674 and Pain in left toe(s) M79.[address] [address] 07/22/2023 Yury Rosario Assessments Encounter Date Diagnosis (ICD Code) Assessment Notes Treatment Notes Treatment Clinical Notes Section Notes 09/08/2023 Tinea unguium (ICD-10 - B35.1) 12/15/2023 Pain in right toe(s) (ICD-10 - M79.674) 12/15/2023 Tinea unguium (ICD-10 - B35.1) 04/11/2024 Atherosclerosis of [place] artery of both lower extremities, with unspecified presence of clinical manifestation (ICD-10 - I70.203) Q7(A), Q8(2B), Q9(1B,2C) 06/18/2024 Atherosclerosis of [place] artery of both lower extremities, with unspecified presence of clinical manifestation (ICD-10 - I70.203) Q7(A), Q8(2B), Q9(1B,2C) 06/18/2024 Tinea unguium (ICD-10 - B35.1) 04/11/2024 Tinea unguium (ICD-10 - B35.1) 12/15/2023 Pain in left toe(s) (ICD-10 - M79.675) 09/08/2023 Pain in right toe(s) (ICD-10 - M79.674) 09/08/2023 Pain in left toe(s) (ICD-10 - M79.675) 12/15/2023 Skin disease (ICD-10 - L98.9) 04/11/2024 Pain in right toe(s) (ICD-10 - M79.674) 06/18/2024 Pain in right toe(s) (ICD-10 - M79.674) 06/18/2024 Pain in left toe(s) (ICD-10 - M79.675) 12/15/2023 Dementia without behavioral disturbance, unspecified dementia type (ICD-10 - F03.90) 04/11/2024 Pain in left toe(s) (ICD-10 - M79.675) 09/08/2023 Skin disease (ICD-10 - L98.9) 09/08/2023 Dementia without behavioral disturbance, unspecified dementia type (ICD-10 - F03.90) 12/15/2023 Hallux valgus (acquired), right foot (ICD-10 - M20.11) 12/15/2023 Tinea pedis (ICD-10 - B35.3) 09/08/2023 Hallux valgus (acquired), right foot (ICD-10 - M20.11) 09/08/2023 Tinea pedis (ICD-10 - B35.3) 12/15/2023 Other hammer toe(s) (acquired), right foot (ICD-10 - M20.41) 12/15/2023 Localized edema (ICD-10 - R60.0) 09/08/2023 Other hammer toe(s) (acquired), right foot (ICD-10 - M20.41) 09/08/2023 Localized edema (ICD-10 - R60.0) 12/15/2023 Ingrowing nail (ICD-10 - L60.0) Plan Of Treatment Pending Test Test Name Order Date 41815-CSSNFJB NAIL, 6 OR MORE 04/11/2024 51035-XLGQMJY NAIL, 6 OR MORE 06/18/2024 06699-YFHU SKIN LESIONS, 2 TO 4 06/18/19 39065-RDUB SKIN LESION 04/11/2024 Next Appt Details Provider Name:Kim Cantrellcharissa miranda, 10/02/2024 02:45:00 PM, [address] [facility], [address], [place], [address], Insurance Providers Payer Name Payer Address Payer Phone Subscriber Number Group Number Insured Name Patient Relationship to Insured Coverage Start Date Coverage End Date [facility] [employer] Claims [address] [place] [id number] Damaso Medina Self - patient is the insured Medical (General) History Medical History History ICD Code Back,Hip,and Knee pain Measles Mumps Chicken pox Bone implants/screws Replacement Heart Valves Surgical History Surgery Date(Month/Year) right knee replacement 11-30-10 left knee replacement 08-16-11
--- OUTSIDE RECORDS SUMMARY | 2024-07-16 17:29 | XMS_ITS | Continuity of Care Document ---
Author Name [facility] Organization [facility] Care Team Providers Care Wire Rope Fabrication Supervisor Name Role Phone [facility] Unavailable Unavailable Problems Combined list of problems from Department of Defense and Veterans Affairs facilities. It does not include entries that were removed or entered in error. Problem Status Onset Date Problem Type Date of Resolution Comments Source Allergic rhinitis Active Condition [facility] Alzheimer's disease Active Condition [facility] Essential hypertension Active Condition [facility] Hearing loss Active Condition [facility] Diagnosis: ICD-10-CM I10 Essential (primary) hypertension Active Diagnosis [facility] Diagnosis: ICD-10-CM H90.3 Sensorineural hearing loss, bilateral Active Diagnosis [facility] Medications Combined list of outpatient medications from Department of Defense and Veterans Affairs facilities.Medications provided include 1) outpatient medications from the last 15 months, and 2) patient-reported medications. Medication Details Route Status Patient Instructions Prescription Expires Prescription Number Last Dispense Date Ordering Provider Order Date Order Qty Source RIVASTIGMIN E 9.5MG/24HR PATCH APPLY 1 PATCH TO SKIN ONCE DAILY TRANSD ERMAL ACTIVE AMERICO HUGO AMMED JAWED 2022 [facility] VALSARTAN 80MG TAB TAKE ONE TABLET BY MOUTH ONCE DAILY ORAL ACTIVE AHMED,MOH AMMED JAWED 2022 [facility] Immunizations Combined list of available immunizations from the Department of Defense and Veterans Affairs facilities. Immunization Series Date Given Administered By Site Reaction Lot Number CVX Code Drug Audiovisual Production Specialist Status Comments Source INFLUENZA, UNSPECIFIED FORMULATION 2023 88 complet ed [facility] INFLUENZA, UNSPECIFIED FORMULATION 2022 88 complet ed [facility] INFLUENZA, UNSPECIFIED FORMULATION 2021 88 complet ed [facility] COVID-19 (MODERNA), MRNA, LNP-S, BIVALENT BOOSTER, PF, 50 MCG/0.5 ML OR 25MCG/0.25 ML DOSE 1 2021 229 complet ed [facility] COVID-19 (MODERNA), MRNA, LNP-S, PF, 100 MCG/0.5ML DOSE OR 50 MCG/0.25ML DOSE 3 2020 207 complet ed [facility] INFLUENZA, UNSPECIFIED FORMULATION 2020 88 complet ed [facility] COVID-19 (MODERNA), MRNA, LNP-S, PF, 100 MCG OR 50 MCG DOSE 2 2020 207 complet ed [facility] COVID-19 (MODERNA), MRNA, LNP-S, PF, 100 MCG OR 50 MCG DOSE 1 2020 207 complet ed [facility] Vital Signs Combined list of inpatient and outpatient Vital Signs from Department of Defense and Veterans Affairs, ranging from 12 months to all on record, depending upon the facility. Vital Sign Value Date Comments Source SYSTOLIC BLOOD PRESSURE 144 04/05/20 24 14:12:24 [facility] DIASTOLIC BLOOD PRESSURE 67 024 14:12:24 [facility] PULSE OXIMETRY 100 04/05/2024 14:12:24 [facility] WEIGHT 178 04/05/2024 14:12:24 [facility] BMI 25 kg/m2 04/05/2024 14:12:24 [facility] PAIN 0 04/05/2024 14:12:24 [facility] TEMPERATURE 97.4 04/05/2024 14:12:24 [facility] PULSE 69 04/05/2024 14:12:24 [facility] RESPIRATION 16 04/05/2024 14:12:24 [facility] Encounters Combined list of: 1) Encounters from Department of Veterans Affairs facilities going backup to the last 18 months, not all VA inpatient encounters are included; 2) Encounters from the Department of Defense facilities going backup to 280 months. Location Location Details Encounter Type Encounter Number Reason For Visit Attending Provider ADM Date DC Date Status Disposition Source [facility] Outpatient Encounter [id number] 03/18 [facility] Outpatient [facility]counter [id number] 03/30 [facility] OFFICE O/P EST MOD 30-39 MIN [id number] Diagnos is: ICD-10- CM H90.3 Sensori neural hearing loss, bilater al OANHISAK MMED JAWED 04/05 [facility] Outpatient Encounter [id number] 03/23 [facility] Outpatient Encounter [id number] 03/25 [facility] OFFICE O/P EST MOD 30 MIN [id number] Diagnos is: ICD-10- CM I10 Essenti al (primar y) hyperte nsion FURCOLO,TI NA 04/05 [facility] Social History Combined list of available smoking, tobacco, and other social history from Department of Defense and Veterans Affairs facilities. Social History Type Response Date Comment Sourc e Tobacco smoking status NHIS VA-TOBACCO NEVER USED CIGARETTES 04/05/2024 [facility] History of tobacco use NV-TOBACCO NEVER USED OTHER TYPE 04/05/2024 [facility] History of tobacco use NV-TOBACCO FORMER USER 04/05/2023 [facility] History of tobacco use NV-TOBACCO NEVER USED 04/06/2022 [facility] History of tobacco use NV-TOBACCO NEVER USED 04/08/2021 [facility]
== END ==
LOC: HO.CARD 14:40
PROVIDERS: PCP Internal Medicine; Visit Provider Internal Medicine Cardiovascular Disease
DX: Z98.890 Other specified postprocedural states (principal)
CPT/HCPCS: 93306

== ENCOUNTER → 2024-07-16 14:44 | Outpatient (BNV) | payer MEDICARE, SELFPAY | PROVIDERS: PCP Internal Medicine; Visit Provider Internal Medicine Cardiovascular Disease | DX: I35.1 Nonrheumatic aortic (valve) insufficiency (principal) | CPT/HCPCS: 93306 ==

== ENCOUNTER 2024-07-26 14:12 | Outpatient (AMB) | payer MEDICARE, SELFPAY ==
[2024-07-26 14:27] VITALS: BP 120/74; PULSE 74; BMI 23.9
--- NOTE | 2024-07-26 14:27 | A.OFFVIS_ITS ---
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 Accompanied by his . As per the he is having some declining memory issues. Also is hard of hearing. Has balance issues but uses cane. Has not had any falls. He denies any cardiac symptoms. Denies any worsening shortness of breath, orthopnea, PND, leg edema. Denies any prolonged palpitations. Recent echocardiogram shows good mitral valve repair wi th normal LV ejection fraction. [facility] Medical History Atrial fibrillation HTN (hypertension) Surgical History History of mitral valve repair Family History Father CVD (cardiovascular disease) Mother CVD (cardiovascular disease) Social History Housing: Condominium Alcohol intake: current Alcohol intake frequency: holidays/special occasions only Alcohol type: beer Patient Tobacco Use Status: Never used Tobacco e-Cigarette/Vaping Use: Never Used Second Hand Smoke Exposure: Yes service: Yes ([id number]) Current occupational status: retired Cognitive needs: No Hearing needs: Yes Vision needs: Yes Review of Systems Const Denies chills, Denies fatigue, Denies fever(s), Denies frequent falls, Denies weakness, Denies weight gain and Denies weight loss ENT Denies dizziness Card Denies chest pain, Denies leg edema, Denies lightheadedness, Denies palpitations, Denies dyspnea, Denies dyspnea on exertion, Denies orthopnea and Denies other (loss of consciousness) Resp Denies cough, Denies dyspnea and Denies dyspnea on exertion GI Denies hematochezia and Denies change in stool character Musc Denies abnormal gait, Denies muscle weakness, Denies numbness, Denies radiating pain into limb and Denies tingling Neuro Denies abnormal gait, Denies dizziness, Denies frequent falls, Denies numbness, Denies tingling and Denies weakness Endo Denies fatigue and Denies palpitations Physical Exam Vital Signs: Last Vital Signs Pulse 74 07/26/24 14:27 BP 120/74 07/26/24 14:27 BMI result Body Mass Index 23.9 Const General: cooperative, comfortable, alert, awake and well groomed Nutritional Appearance: average body habitus Orientation/consciousness: patient oriented x3 Limitations: no limitations Neck Neck: Yes trachea midline, Yes supple and Yes no JVD Resp Effort & Inspection: normal respiratory effort Auscultation: clear to auscultation bilaterally Cardio Palpation: normal PMI Rate: regular rate Rhythm: abnormal rhythm irregularly irregular Heart sounds: S1 normal heart sound present and S2 normal heart sound present Skin General skin exam: no rashes or lesions noted Neuro General: patient oriented x3 and no focal motor deficits Extrem General: Yes no clubbing, cyanosis or edema Psych Appearance: grossly normal Office Procedures EKG Details: EKG shows atrial fibrillation with baseline wander with poor R-wave progression most likely due to lead placement with nonspecific ST T wave changes 22262-Ffbfdsaoqrdugnmtd, Complete Assessment & Plan Assessment & Plan (1) Atrial fibrillation: Code(s): I48.91 - Unspecified atrial fibrillation Category: Medical Qualifiers: Atrial fibrillation type: paroxysmal Qualified Code(s): I48.0 - Paroxysmal atrial fibrillation Plan: Chronic atrial fibrillation, currently rate controlled. Discussed with the that he has had atrial fibrillation for few years now. Rate is adequately controlled. Continue the treatment. Discussed about need for oral anticoagulation therapy given his risk for stroke. They are currently declining it and want to reconsider and think about it. (2) S/P mitral valve repair: Code(s): Z98.890 - Other specified postprocedural states Category: Surgical Plan: Status post mitral valve repair for mitral regurgitation. Repairs working well clinically. Continue SBE prophylaxis as per ACC/[place] guidelines. Continue risk factor modification. Blood pressure is well optimized. Advised to monitor blood pressure at home maintain a log. Goal blood pressure less than 130/84. Will follow up in the clinic in 1 year's time, sooner p.r.n.. Thank you for allowing me to partake in his care Coding Level of Care Code Est Pt Level 4 (91427) Complex EM visit Add On G2211 Diagnoses Paroxysmal atrial fibrillation I48.0 Atrial fibrillation type: paroxysmal S/P mitral valve repair Z98.890 CPT Codes EKG - CPT: 79555-Sevkedsntredjzpzj, Complete ([id number])
--- OUTSIDE RECORDS SUMMARY | 2024-07-26 18:04 | XMS_ITS | Continuity of Care Document ---
Author Name [facility] Organization [facility] Care Team Providers Care Manual Qa Tester Name Role Phone [facility] Unavailable Unavailable Problems Combined list of problems [...] ERMAL ACTIVE AMERICO HUGO AMMED JAWED 2022 [facility] VALSARTAN 80MG TAB TAKE ONE TABLET BY MOUTH ONCE DAILY ORAL ACTIVE AHMED,MOH AMMED JAWED 2022 [facility] Immunizations Combined list of available immunizations from the Department of Defense and Veterans Affairs facilities. 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 Status Comments Source INFLUENZA, UNSPECIFIED FORMULATION 2023 [...] Disposition Source [facility] Outpatient Encounter [id number] 03/18 [facility] Outpatient Encounter [id number] 03/30 [facility] OFFICE O/P EST MOD 30-39 MIN [id number] Diagnos is: ICD-10- CM H90.3 Sensori neural hearing loss, bilater al OANHISAK MMED JAWED 04/05 [facility] Outpatient Encounter [id number] 03/23 [facility] Outpatient Encounter [id number] 03/25 [facility] OFFICE O/P EST MOD 30 MIN [id number] Diagnos is: ICD-10- CM I10 Essenti al (primar y) hyperte nsion FURCOLO,TI NA 04/05 [facility] Social History Combined list of available smoking, tobacco, and other social history from Department of Defense and Veterans Affairs facilities. Social History Type Response Date Comment Sourc e Tobacco smoking status NHIS VA-TOBACCO NEVER USED CIGARETTES 04/05/2024 [facility] History of tobacco use SC-TOBACCO NEVER USED OTHER TYPE 04/05/2024 [facility] History of tobacco use SC-TOBACCO FORMER USER 04/05/2023 [facility] [place] [facility] History of tobacco use SC-TOBACCO NEVER USED 04/06/2022 [facility] History of tobacco use SC-TOBACCO NEVER USED 04/08/2021 [facility]
--- OUTSIDE RECORDS SUMMARY | 2024-07-26 18:04 | XMS_ITS ---
Author Organization [facility] Address [address] [place] [address] Care Team Providers Care Lead Trainer Name Role Phone Zenon BELTRAN, Sabrina Primary Care Provider Unavail Kim Brown Unavailable [phone] REASON FOR VISIT not approved for pts insurance Encounters Encounter Location Date Provider Diagnosis [address] [address] 03/13/2024 Kim Henry Plan Of Treatment Next Appt Details Provider Name:Kim miranda, 10/02/2024 02:45:00 PM, [address] [facility], [address] [facility], [place], [address], Progress Notes * Damaso MEDINADOB: (83 yo M)Acc No.[id number]:03/13/2024 Progress Note Patient:?Damaso MEDINA Provider:?Kim Henry DPM :1940???Age:83 Y???Sex:Male Tru e:03/13/2024 Address:[address] [place] [address] [address], [place] [facility] Pcp:Sabrina Yarbrough MD Subjective: * Chief Complaints: [...] Henry DPM Date:?1 Generated for Celeste prince/Manpreet/Frederick on:?07/26/2024 06:04 PM EDT
--- OUTSIDE RECORDS SUMMARY | 2024-07-26 18:04 | XMS_ITS | Clinical Summary ---
Author Organization Unknown Care Team Providers Care Stonemason Name Role Phone ALEX NIETO MD, DIONI Unavailable Unavailable SOHAIL PATEL, BRUALIO Unavailable Unavailable Payers Payer Name Policy Type Policy Number Effective Date Expira tion Date [facility] [id number] [place]ID [place] [id number] MEDICARE - [facility]MD - [facility] [id number] Problems Condition Name Condition Details Condition Category [...] 500 mg tablet 12-22 00:00: 00 Yes [id number] 1 tablet DAILY 1 tablet DAILY (route: oral) Med Classific ation: Electroly te Balance-N utritiona l Products Colace 100 mg capsule 12-22 00:00: 00 Yes [id number] 1 capsule DAILY 1 capsule DAILY (route: oral) Med Classific ation: Gastroint estinal Therapy Agents Exelon Patch 4.6 mg/24 hour transdermal 12-22 00:00: 00 Yes [id number] 1 patch, transde rmal 24 hours DAILY 1 patch, transderma l 24 hours DAILY (route: transderma l) Med Classific ation: Cognitive Disorder Therapy Iron (ferrous sulfate) 325 mg (65 mg iron) tablet 12-22 00:00: 00 Yes [id number] 1 tablet EVERY OTHER DAY 1 tablet EVERY OTHER DAY (route: oral) Med Classific ation: Electroly te Balance-N utritiona l Products L-Lysine 500 mg tablet 12-22 00:00: 00 Yes [id number] 1 tablet DAILY 1 tablet DAILY (route: oral) Med Classific ation: Electroly te Balance-N utritiona l Products Mag Glycinate 100 mg tablet 12-22 00:00: 00 Yes [id number] 1 tablet DAILY 1 tablet DAILY (route: oral) Med Classific ation: Electroly te Balance-N utritiona l Products multivitami n with minerals-fe rrous fumarate 15 mg iron tablet 12-22 00:00: 00 Yes [id number] 1 tablet DAILY 1 tablet DAILY (route: oral) Med Classific ation: Electroly te Balance-N utritiona l Products NAC 600 mg capsule 12-22 00:00: 00 Yes [id number] 1 capsule DAILY 1 capsule DAILY (route: oral) Med Classific ation: Electroly te Balance-N utritiona l Products Bulverde-3 (with docosapenta enoic acid) 1,050 mg-1,200 mg capsule 12-22 00:00: 00 Yes [id number] 1 capsule DAILY 1 capsule DAILY (route: oral) Med Classific ation: Cardiovas cular Therapy Agents Q-absorb 100 mg capsule 12-22 00:00: 00 Yes [id number] 1 capsule DAILY 1 capsule DAILY (route: oral) Med Classific ation: Alternati ve Therapy valsartan 80 mg tablet 12-22 00:00: 00 Yes [id number] 1 tablet DAILY 1 tablet DAILY (route: oral) Med Classific ation: Cardiovas cular Therapy Agents Vitamin D3 25 mcg (1,000 unit) tablet 12-22 00:00: 00 Yes [id number] 1 tablet DAILY 1 tablet DAILY (route: oral) Med Classific ation: Electroly te Balance-N utritiona l Products vitamin K2 45 mcg capsule 12-22 00:00: 00 Yes [id number] 1 capsule DAILY 1 capsule DAILY (route: oral) Med Classific ation: Electroly te Balance-N utritiona l Products Vital Signs Vital Name Observation Time Observation Value Commen ts Temperature 2024-07-19 12:59:00.000 97.3 [degF] Temperature 2024-07-12 12:34:00.000 97.6 [degF] Temperature 2024-07-05 12:38:00.000 97.3 [degF] Temperature 2024-06-28 12:54:00.000 97.6 [degF] Temperature 2024-06-21 12:40:00.000 97.3 [degF] Pulse 2024-07-19 12:59:00.000 78 /min Pulse 2024-07-12 12:34:00.000 60 /min Pulse 2024-07-05 12:38:00.000 75 /min Pulse 2024-06-28 12:54:00.000 78 /min Pulse 2024-06-21 12:40:00.000 60 /min O2 Saturation (%) 2024-07-19 13:00:00.000 95 % O2 Saturation (%) 2024-07-12 12:35:00.000 96 % O2 Saturation (%) 2024-07-05 12:39:00.000 96 % O2 Saturation (%) 2024-06-28 12:55:00.000 97 % Respirations 2024-07-19 12:59:00.000 16 /min Respirations 2024-07-12 12:34:00.000 16 /min Respirations 2024-07-05 12:38:00.000 16 /min Respirations 2024-06-28 12:54:00.000 16 /min Respirations 2024-06-21 12:40:00.000 16 /min Systolic Blood Pressure 2024-07-19 12:59:00.000 112 mm [Hg] Systolic Blood Pressure 2024-07-12 12:34:00.000 122 mm [Hg] Systolic Blood Pressure 2024-07-05 12:38:00.000 120 mm [Hg] Systolic Blood Pressure 2024-06-28 12:54:00.000 122 mm [Hg] Systolic Blood Pressure 2024-06-21 12:42:00.000 120 mm [Hg] Diastolic Blood Pressure 2024-07-19 12:59:00.000 68 mm [Hg] Diastolic Blood Pressure 2024-07-12 12:34:00.000 [...] CAREGIVER ON MANAGEMENT OF DEMENTIA UTILIZING THE MEANINGFUL CARE SPECIALTY PROGRAM. [code = SN TO INSTRUCT CAREGIVER ON MANAGEMENT OF DEMENTIA UTILIZING THE MEANINGFUL CARE SPECIALTY PROGRAM.] Future Scheduled Test SKILLED NU RSE WILL MAINTAIN SITUATIONAL AWARENESS FOR SAFETY AND WILL NOTIFY CLINICAL [facility] SERVICE UNIT OPERATOR AND PHYSICIAN/PROVIDER WITH ANY CHANGE IN CONDITION. [code = SKILLED NURSE WILL MAINTAIN SITUATIONAL AWARENESS FOR SAFETY AND WILL NOTIFY CLINICAL OIL WELL SERVICE UNIT OPERATOR AND PHYSICIAN/PROVIDER WITH ANY CHANGE IN CONDITION.] [...] SELF AND OTHERS THROUGHOUT THE CERTIFICATION PERIOD. Encounters Start Date/Time End Date/Time Encounter Type Admission Type Attending [facility] Care Department Encounter ID Discharge Date Discharge Status Discharge Condition Discharge Reason Percent Goals Met 2023-12-23 00:00:00 2024-08-18 00:00:00 Outpatient RECERTIFIC ATION BRAULIO SAUCEDA [facility] [id number]
--- OUTSIDE RECORDS SUMMARY | 2024-07-26 18:04 | XMS_ITS | Patient Health Record ---
Author Organization [facility] Ulisses jeremy Suarez Address [address] [place] [address] Care Team Providers Care Swim Instructor Name Role Phone Zenon BELTRAN, Sabrina Primary Care Provider Unavail able Kim Henry Unavailable [phone] Yury Rosario Unavailable [phone] Allergies No Known Allergies Reason For Referral [...] Status Risk Notes Problem Acquired hallux valgus (83087730) Hallux valgus (acquired), right foot (M20.11) Active confirmed Problem Acquired hammer toe of right foot ([id number] 35841) Other hammer toe(s) (acquired), right foot (M20.41) Active confirmed Problem Atherosclerosis of kasaan artery of both lower extremities, with unspecified presence of clinical manifestation (I70.203) Active confirmed Q7(A), Q8(2B), Q9(1B,2C ) Problem [id number] Dementia without behavioral disturbance, unspecified dementia type (F03.90) Active confirmed Vital Signs Blood pressure diastolic 80 mm Hg 06/18/2024 Height 5 ft 11 in in 06/18/2024 Blood pressure systolic 120 mm Hg 06/18/2024 Weight 168 lbs 06/18/2024 BMI 23.43 kg/m2 06/18/2024 Procedures Procedure Date Ordered Date Performed Result Body Sit e 67879-XBZJUCO NAIL, 6 OR MORE 04/11/2024 N/A 65455-KSNY SKIN LESION 04/11/2024 N/A 07608-SMGXFJZ NAIL, 6 OR MORE 06/18/2024 N/A 82574-GQEH SKIN LESIONS, 2 TO 4 06/18/2024 N/A Encounters Encounter Location Date Provider Diagnosis [address] [address] 09/08/2023 Yury Rosario Tinea unguium B35.1 ; Pain in right toe(s) M79.674 ; Pain in left toe(s) M79.675 ; Skin disease L98.9 ; Dementia without behavioral disturbance, unspecified dementia type F03.90 ; Hallux valgus (acquired), right foot M20.11 ; Tinea pedis B35.3 ; Other hammer toe(s) (acquired), right foot M20.41 and Localized edema R60.[address] [address] 12/15/2023 Yury Rosario Tinea unguium B35.1 ; Pain in right toe(s) M79.674 ; Pain in left toe(s) M79.675 ; Skin disease L98.9 ; Dementia without behavioral disturbance, unspecified dementia type F03.90 ; Hallux valgus (acquired), right foot M20.11 ; Tinea pedis B35.3 ; Other hammer toe(s) (acquired), right foot M20.41 ; Localized edema R60.0 and Ingrowing nail L60.0 [facility] [address] [address] 04/11/2024 Kim Henry Atherosclerosis of kas[place] artery of both lower extremities, with unspecified presence of clinical manifestation I70.203 ; Tinea unguium B35.1 ; Pain in right toe(s) M79.674 and Pain in left toe(s) M79.[address] [address] 06/18/2024 Kim Henry Atherosclerosis of kas[place] artery of both lower extremities, with unspecified [...] unguium (ICD-10 - B35.1) 04/11/2024 Atherosclerosis of kas[place] artery of both lower extremities, with unspecified presence of clinical manifestation (ICD-10 - I70.203) Q7(A), Q8(2B), Q9(1B,2C) 06/18/2024 Atherosclerosis of kas[place] artery of both lower extremities, with unspecified [...] Treatment Pending Test Test Name Order Date 60962-OGAQSAV NAIL, 6 OR MORE 04/11/2024 74400-OHFDOES NAIL, 6 OR MORE 06/18/2024 79027-ZCPA SKIN LESIONS, 2 TO 4 06/18/19 92635-DVZK SKIN LESION 04/11/2024 Next Appt Details Provider Name:Kim Dodson ruth, 10/02/2024 02:45:00 PM, [address] [facility], [place] [address], [place], [address], Insurance Providers Payer Name Payer Address Payer Phone Subscriber Number Group Number Insured Name Patient Relationship to Insured Coverage Start Date Coverage End Date [facility] [employer] Claims [address] [place] [phone] [id number] Damaso Medina Self - patient is the insured Medical (General) History Medical History History ICD Code Back,Hip,and Knee pain Measles Mumps Chicken pox Bone implants/screws Replacement Heart Valves Surgical History Surgery Date(Month/Year) right knee replacement 11-30-10 left knee replacement 08-16-11
--- OUTSIDE RECORDS SUMMARY | 2024-07-26 18:05 | XMS_ITS | Clinical Summary ---
Author Organization Unknown Care Team Providers Care Salvage Clerk Name Role Phone ALEX NIETO MD, DIONI Unavailable Unavailable SOHAIL PATEL, BRAULIO Unavailable Unavailable Payers Payer Name Policy Type Policy Number Effective Date Expira tion Date [facility] [id number] [place]ID [place] [id number] MEDICARE - [facility]/OK - [facility] [id number] Problems Condition Name Condition Details Condition Category [...] 500 mg tablet 12-22 00:00: 00 Yes [id number] 1 tablet DAILY 1 tablet DAILY (route: oral) Med Classific ation: Electroly te Balance-N utritiona l Products Colace 100 mg capsule 12-22 00:00: 00 Yes [id number] 1 capsule DAILY 1 capsule DAILY (route: oral) Med Classific ation: Gastroint estinal Therapy Agents Exelon Patch 4.6 mg/24 hour transdermal 12-22 00:00: 00 Yes [id number] 1 patch, transde rmal 24 hours DAILY 1 patch, transderma l 24 hours DAILY (route: transderma l) Med Classific ation: Cognitive Disorder Therapy Iron (ferrous sulfate) 325 mg (65 mg iron) tablet 12-22 00:00: 00 Yes [id number] 1 tablet EVERY OTHER DAY 1 tablet EVERY OTHER DAY (route: oral) Med Classific ation: Electroly te Balance-N utritiona l Products L-Lysine 500 mg tablet 12-22 00:00: 00 Yes [id number] 1 tablet DAILY 1 tablet DAILY (route: oral) Med Classific ation: Electroly te Balance-N utritiona l Products Mag Glycinate 100 mg tablet 12-22 00:00: 00 Yes [id number] 1 tablet DAILY 1 tablet DAILY (route: oral) Med Classific ation: Electroly te Balance-N utritiona l Products multivitami n with minerals-fe rrous fumarate 15 mg iron tablet 12-22 00:00: 00 Yes [id number] 1 tablet DAILY 1 tablet DAILY (route: oral) Med Classific ation: Electroly te Balance-N utritiona l Products NAC 600 mg capsule 12-22 00:00: 00 Yes [id number] 1 capsule DAILY 1 capsule DAILY (route: oral) Med Classific ation: Electroly te Balance-N utritiona l Products [place]-3 (with docosapenta enoic acid) 1,050 mg-1,200 mg capsule 12-22 00:00: 00 Yes [id number] 1 capsule DAILY 1 capsule DAILY (route: oral) Med Classific ation: Cardiovas cular Therapy Agents Q-absorb 100 mg capsule 12-22 00:00: 00 Yes [id number] 1 capsule DAILY 1 capsule DAILY (route: oral) Med Classific ation: Alternati ve Therapy valsartan 80 mg tablet 12-22 00:00: 00 Yes [id number] 1 tablet DAILY 1 tablet DAILY (route: oral) Med Classific ation: Cardiovas cular Therapy Agents Vitamin D3 25 mcg (1,000 unit) tablet 12-22 00:00: 00 Yes [id number] 1 tablet DAILY 1 tablet DAILY (route: oral) Med Classific ation: Electroly te Balance-N utritiona l Products vitamin K2 45 mcg capsule 12-22 00:00: 00 Yes [id number] 1 capsule DAILY 1 capsule DAILY (route: [...] AWARENESS FOR SAFETY AND WILL NOTIFY CLINICAL BARKEEP AND PHYSICIAN/PROVIDER WITH ANY CHANGE IN CONDITION. [code = SKILLED NURSE WILL MAINTAIN SITUATIONAL AWARENESS FOR SAFETY AND WILL NOTIFY CLINICAL BARKEEP AND PHYSICIAN/PROVIDER WITH ANY CHANGE IN CONDITION.] [...] CARE WILL BE ESTABLISHED THAT MEETS PATIENT'S SHELTER NEEDS AND INCLUDES PATIENT GOAL FOR HOME [...] End Date/Time Encounter Type Admission Type Attending [facility] Care Department Encounter ID Discharge Date Discharge Status Discharge Condition Discharge Reason Percent Goals Met 2023-12-23 00:00:00 2024-08-18 00:00:00 Outpatient RECERTIFIC ATION BRAULIO SAUCEDA [facility] [id number]
--- OUTSIDE RECORDS SUMMARY | 2024-07-26 18:05 | XMS_ITS ---
Author Organization [facility] Address [address] [place] [address] Care Team Providers Care Sat Math Tutor Name Role Phone Zenon BELTRAN, Sabrina Primary Care Provider Unavail able Kim Henry Unavailable [phone] REASON FOR VISIT At Risk Footcare, Painful [...] W/U Status Risk Notes Problem Atherosclerosis of [place] artery of both lower extremities, with unspecified presence of clinical manifestation (I70.203) Active confirmed Q7(A), Q8(2B), Q9(1B,2C) Procedures Procedure Date Ordered Date Performed Result Body Sit e 36290-WBQUPMA NAIL, 6 OR MORE 04/11/2024 N/A 18387-IDZW SKIN LESION 04/11/2024 N/A Encounters Encounter Location Date Provider Diagnosis [facility] [address] [place] [address] 04/11/2024 Kim Henry Atherosclerosis of [place] artery of both lower extremities, with unspecified presence of clinical manifestation I70.203 ; Tinea unguium B35.1 ; Pain in right toe(s) M79.674 and Pain in left toe(s) M79.675 Assessments Encounter Date Diagnosis (ICD Code) Assessment Notes Treatment Notes Treatment Clinical Notes Section Notes 04/11/2024 Atherosclerosis of [place] artery of both lower extremities, with unspecified presence of clinical manifestation (ICD-10 - I70.203) Q7(A), Q8(2B), Q9(1B,2C) 04/11/2024 Tinea unguium (ICD-10 - B35.1) 04/11/2024 Pain in right toe(s) (ICD-10 - M79.674) 04/11/2024 Pain in left toe(s) (ICD-10 - M79.675) Plan Of Treatment Pending Test Test Name Order Date 57143-MCGZNIE NAIL, 6 OR MORE 04/11/2024 09744-EKTR SKIN LESION 04/11/2024 Next Appt Details Follow Up: prn, Reason: Provider Name:Kim Cantrellcharissa miranda, 10/02/2024 02:45:00 PM, [address] [facility], [address], [place], [address], Procedure Notes * Category Sub-Category Detail Notes [...] use of a nail nipper and/or dremel-type jewel grinder, to a more viable healthy nail [...] to maintain effectiveness in symptomatic relief - 65859 Keratoma Treatment Parring or Cutting o f Benign Hyperkeratotic Lesion(s) (-55) 1 Lesion - The Benign hyperkeratotic lesion, 1 in total, as stated and described in exam, was pared, and/or cut utilizing a sterile 15 blade, tissue nippers, and/or power dremel instrumentation - 33911, Q8 Progress Notes * Nicky MEDINA: 9 (83 yo M)Acc No.[id number]:04/11/2024 Progress Note Patient:?Damaso MEDINA Provider:?Kim Henry DPM :1940???Age:83 Y???Sex:Male Tru e:04/11/2024 Address:[address] [place] [address] et [address], [facility] Pcp:Sabrina Yarbrough MD Subjective: * Chief Complaints: [...] head, Left.? Assessment: * Assessment: 1.?Atherosclerosis of [place] artery of both lower extremities, with unspecified presence of clinical manifestation - I70.203 (Primary)???Notes :Q7(A), Q8(2B), Q9(1B,2C)???2.?Tinea unguium - B35.1???3.?Pain in right toe(s) - M79.674???4.?Pain in left toe(s) - M79.675??? Plan: * Treatment: 2.?Tinea unguium?Procedure: 26691-TTZPUFG NAIL, 6 OR MORE * Procedures:?Debride Nail [...] use of a nail nipper and/or dremel-type jewel grinder, to a more viable healthy nail [...] to maintain effectiveness in symptomatic relief - 54500.?Keratoma Treatment:?Parring or Cutting of Benign Hyperkeratotic Lesion(s)?(-55) 1 Lesion - The Benign hyperkeratotic lesion, 1 in total, as stated and described in exam, was pared, and/or cut utilizing a sterile 15 blade, tissue nippers, and/or power dremel instrumentation - 62501, Q8.? * Procedure Codes:?79205 DEBRI DE NAIL, 6 OR MORE, Modifiers: XS 27881 TRIM SKIN LESION, Modifiers: XS , Q8 * Follow Up:?prn * Images: * Sign off status: Completed true * Provider:?Kim Henry DPM Date:?06/11/2023 Generated for Celeste prince/Manpreet/eTransmitting on:?07/26/2024 06:04 PM EDT History and Physical Notes * HPI (History [...]
--- OUTSIDE RECORDS SUMMARY | 2024-07-26 18:05 | XMS_ITS ---
Author Organization [facility] [place] Address [address] [place] [address] Care Team Providers Care Traffic Assistant Name Role Phone Zenon BELTRAN, Sabrina Primary Care Provider Unavail able Kim Henry Unavailable [phone] Allergies No Known Allergies REASON FOR VISIT [...] Ordered Date Performed Result Body Sit e 18852-ICNZJUV NAIL, 6 OR MORE 06/18/2024 N/A 33527-VRGG SKIN LESIONS, 2 TO 4 06/18/2024 N/A Encounters Encounter Location Date [facility] [address] [place] [address] 06/18/2024 Kim Henry 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, with unspecified presence of clinical manifestation I70.203 ; Tinea unguium B35.1 ; Pain in right toe(s) M79.674 and Pain in left toe(s) M79.675 Assessments Encounter Date Diagnosis (ICD Code) Assessment Notes Treatment Notes Treatment Clinical Notes Section Notes 06/18/2024 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, with unspecified presence of clinical manifestation (ICD-10 - I70.203) Q7(A), Q8(2B), Q9(1B,2C) 06/18/2024 Tinea unguium (ICD-10 - B35.1) 06/18/2024 Pain in right toe(s) (ICD-10 - M79.674) 06/18/2024 Pain in left toe(s) (ICD-10 - M79.675) Plan Of Treatment Pending Test Test Name Order Date 76385-EBVCQVU NAIL, 6 OR MORE 06/18/2024 31412-SLRZ SKIN LESIONS, 2 TO 4 06/18/19 Next Appt Details Follow Up: 3 Months, Reason: Provider Name:Kim West ruth, 10/02/2024 02:45:00 PM, [address] [facility], [address], [place], [address], Procedure Notes * Category Sub-Category Detail Notes [...] use of a nail nipper and/or dremel-type grinder carbon plant, to a more viable healthy nail plate [...] to maintain effectiveness in symptomatic relief - 88096 Keratoma Treatment Parring or Cutting o f [...] instrumentation by the physician of record - 16839, Q8 Progress Notes * Damaso MEDINADOB: (83 yo M)Acc No.[id number]:06/18/2024 Progress Note Patient:?Damaso MEDINA Provider:?Kim Henry DPM :1940???Age:83 Y???Sex:Male Tru e:06/18/2024 Address:[address] [place], [place] [id number] Pcp:Sabrina Yarbrough MD Subjective: * Chief Complaints: [...] Medical History:? * Surgical History:?right knee replacement 28-75-33ujwl knee replacement 08-16-11 * Hospitalization/Major Diagno stic [...] head, B/L.? Assessment: * Assessment: 1.?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, with unspecified presence of clinical manifestation - I70.203 (Primary)???Notes :Q7(A), Q8(2B), Q9(1B,2C)???2.?Tinea unguium - B35.1???3.?Pain in right toe(s) - M79.674???4.?Pain in left toe(s) - M79.675??? Plan: * Treatment: 2.?Tinea unguium?Procedure: 49065-LROIVMT NAIL, 6 OR MORE * Procedures:?Debride Nail [...] use of a nail nipper and/or dremel-type grinder carbon plant, to a more viable healthy nail plate [...] to maintain effectiveness in symptomatic relief - 06148.?Keratoma Treatment:?Parring or Cutting of Benign Hyperkeratotic Lesion(s)?(-56) [...] instrumentation by the physician of record - 95349, Q8.? * Procedure Codes:?75038 DEBRI DE NAIL, 6 OR MORE, Modifiers: XS 81270 TRIM SKIN LESIONS, 2 TO 4, Modifiers: XS , Q8 * Follow Up:?3 Months * Images: * Sign off status: Completed true * Provider:?Kim Henry DPM Date:?0 06/18/2024 Generated for Celeste prince/Manpreet/Frederick on:?07/26/2024 06:04 PM EDT History and Physical [...]
== END 2024-07-26 14:56 | disposition home or self-care (01) ==
LOC: HO.HCS 14:13
PROVIDERS: PCP Internal Medicine; Visit Provider Internal Medicine Cardiovascular Disease
DX: I48.0 Paroxysmal atrial fibrillation (principal); Z98.890 Other specified postprocedural states
CPT/HCPCS: 93010; 99214; G2211

== ENCOUNTER → 2024-07-26 14:12 | Outpatient (BNVA) | payer OTHER, SELFPAY | PROVIDERS: PCP Internal Medicine; Visit Provider Internal Medicine Cardiovascular Disease | DX: I48.0 Paroxysmal atrial fibrillation (principal); Z98.890 Other specified postprocedural states | CPT/HCPCS: 93005; 99212 ==

== ENCOUNTER 2024-07-27 15:50 | Emergency (ER) | payer OTHER, SELFPAY ==
--- NOTE | ~2024-07-27 | CT_ITS ---
CLINICAL HISTORY: facial injury, pain CT maxillofacial without contrast Comparison: MR/REG - MRI BRAIN WWO [id number] - 05/15/19 14:[address] - BRAIN WO IV CONTRAST [id number] - 03/18/11 13:50 EDT Findings: No acute fractures. Temporomandibular joints are intact. Right frontal scalp soft tissue swelling. Mucosal thickening in the right maxillary sinus and ethmoid air cells. Unremarkable orbital contents. No foreign bodies. IMPRESSION: 1. No acute osseous injury. 2. Right frontal scalp soft tissue swelling. This document has been electronically signed by: Edmundo Jefferson MD on 07/27/2024 19:36:16
--- NOTE | ~2024-07-27 | CT_ITS ---
CLINICAL HISTORY: fall, headstrike, pain CT cervical spine without contrast Comparison: None Findings: Minimal anterolisthesis of C2 on C3 is favored to be chronic. Multilevel degenerative changes. No acute fractures or dislocations. No acute findings in the visualized brain. Soft tissues of the neck are normal. Biapical lung scarring. IMPRESSION: 1. No acute osseous injury. This document has been electronically signed by: Edmundo Jefferson MD on 07/27/2024 19:40:22
--- NOTE | ~2024-07-27 | CT_ITS ---
CLINICAL HISTORY: head strike, pain CT head without contrast Comparison: MR/REG - MRI BRAIN WWO [id number] - 05/15/19 14:[address] - BRAIN WO IV CONTRAST [id number] - 03/18/11 13:50 EDT Findings: No intra-axial mass, midline shift, hydrocephalus, or acute hemorrhage. Diffuse volume loss. Periventricular and subcortical white matter hypoattenuation likely chronic small-vessel ischemic changes. Intracranial atherosclerosis. Mucosal thickening in the right maxillary sinus and ethmoid air cells. The orbits are unremarkable. Soft tissue swelling in the right frontal scalp. No skull fracture. IMPRESSION: No acute intracranial findings. This document has been electronically signed by: Edmundo Jefferson MD on 07/27/2024 19:45:46
[2024-07-27 15:56] VITALS: BP 130/72; PULSE 76; O2SAT 96
--- NOTE | 2024-07-27 15:56 | ED_ITS ---
HPI - General Adult General Chief complaint: Fall Stated complaint: Fall Time Seen by Provider: 07/27/24 15:52 Source: patient and EMS Mode of arrival: EMS Limitations: no limitations History of Present Illness ED Provider: Xin Kapoor PA-C HPI narrative: Patient is an 83 year old male with a past medical history of Alzheimers, AFIB, HTN, and mitral valve repair who presents to the ED for a fall. Patient is alert and oriented to person and place but unable to give a good history of events. Patient's who witnessed the fall is present and able to give the event history. Patient states he was getting off of the bus and walking to his condo with his when he tripped over his cane and landed directly on his face. Patient and his state he did not lose consciousness. EMS subsequently was called and transported him to the hospital.Denies blood thinners. He reports pain to his nose and front of his forehead. He has pain in no other areas and has no other complaints at this time. Relieving factors: none Associated symptoms: denies other symptoms Treatments prior to arrival: none Related Data Home Medications ?Medication ?Instructions ?Recorded ?Confirmed multivitamin,tn-opph-tvxeekwa 1 tab PO DAILY 04/29/20 07/26/24 (Complete Multivitamin tablet) [id number]-fish oil-coQ10 g PO 04/29/20 07/26/24 1,900 mg-640 mg-50 mg/2.5 gram oral pack ascorbic acid (vitamin C) 250 mg 250 mg PO DAILY 01/27/21 07/26/24 tablet magnesium 250 mg tablet 250 mg PO DAILY 01/27/21 07/26/24 Previous Rx's ?Medication ?Instructions ?Recorded bed alarm #1 ea 12/13/23 rivastigmine 4.6 mg/24 hour 1 patch topical DAILY 30 days #30 07/20/24 transdermal patch ea valsartan 80 mg tablet 80 mg PO DAILY 90 days #90 tabs 07/22/24 Allergies Allergy/AdvReac Type Severity Reaction Status Date / Time No Known Drug Allergies Allergy Unknown Verified 07/27/24 16:09 Review of Systems Constitutional: Constitutional: Reports no additional constitutional complaints, Denies chills, Denies fever(s) and Denies night sweats Eyes: Eyes: Reports no additional eye complaints, Denies blurry vision, Denies change in vision, Denies diplopia, Denies eye discharge, Denies loss of vision and Denies eye pain ENT: Denies dizziness Comments: nasal and forehead abrasion Cardiovascular: Cardiovascular: Reports no additional cardiovascular complaints, Denies chest pain, Denies lightheadedness, Denies Loss of Consciousness and Denies dyspnea Respiratory: Respiratory: Reports no additional respiratory complaints and Denies dyspnea Gastrointestinal: Gastrointestinal: Reports no additional gastrointestinal complaints, Denies abdominal pain, Denies melena, Denies hematochezia, Denies change in bowel habits and Denies change in stool character Genitourinary: Genitourinary: Reports no additional male genitourinary complaints, Denies hematuria, Denies oliguria, Denies difficulty urinating, Denies dysuria, Denies urinary frequency, Denies urinary hesitancy, Denies urinary incontinence and Denies urinary urgency Musculoskeletal: Musculoskeletal: Reports no additional musculoskeletal complaints, Denies numbness and Denies tingling Neurologic: Denies dizziness, Denies loss of vision, Denies numbness and Denies tingling Psychiatric: Psychiatric: Reports no additional psychiatric complaints Endocrine: Endocrine: Reports no additional endocrine complaints Hematologic/Lymphatic: Hematologic/Lymphatic: Reports no additional hematologic/lymphatic complaints Allergic/Immunologic: Allergic/Immunologic: Reports no additional allergic/immunologic complaints [facility] Past Medical History Attestation statement: The following information was validated with the patient. Source: old records reviewed and nursing notes reviewed Medical History Atrial fibrillation HTN (hypertension) Surgical History History of mitral valve repair Family History Family History Father CVD (cardiovascular disease) Mother CVD (cardiovascular disease) Social History Social History Housing: Condominium Alcohol intake: current Alcohol intake frequency: holidays/special occasions only Alcohol type: beer Patient Tobacco Use Status: Never used Tobacco e-Cigarette/Vaping Use: Never Used Second Hand Smoke Exposure: Yes Advance Directives: No Advance Directives Information Provided: No service: Yes ([id number]) Current occupational status: retired Cognitive needs: No Hearing needs: Yes Vision needs: Yes Physical Exam ED Vital Signs: Vital Signs - 24 hr 07/27/24 16:00 07/27/24 16:06 07/27/24 19:07 Temperature 98 F 98 F Pulse Rate 74 71 82 Respiratory Rate 14 16 14 Blood Pressure 163/75 H 163/75 H 152/72 H Pulse Oximetry 95 96 98 Oxygen Delivery Method Room Air Room Air Room Air 07/27/24 20:14 Temperature Pulse Rate 77 Respiratory Rate 16 Blood Pressure 155/73 H Pulse Oximetry 98 Oxygen Delivery Method Room Air BMI result Body Mass Index 25.8 Const General: cooperative, no acute distress, alert and awake Nutritional Appearance: well nourished Orientation/consciousness: oriented to person and oriented to place Limitations: no limitations HENMT Head: Yes No palpable skull fracture present, Yes normocephalic and Yes abrasion (forehead and nasal abrasions) Ears: hearing grossly normal bilaterally and external ears normal General nose exam: Normal external nose present, no nasal discharge noted and no epistaxis Face and sinus: No laceration Mouth: Normal oral and palatal mucosa present, no drooling and no muffled voice Eyes General: appearance normal, both eyes and all related structures Periorbital: periorbital findings normal Eyelids: Yes eyelids normal Conjunctivae: conjunctivae normal Pupils: Equal, round and reactive pupils present EOM: EOMs intact bilaterally Neck Neck: Yes normal visual inspection, Yes full ROM, Yes no lymphadenopathy and Yes trachea midline Chest Chest palpation & inspection: normal inspection of the chest Resp Effort & Inspection: normal respiratory effort and able to speak in complete sentences Auscultation: clear to auscultation bilaterally Cardio Heart sounds: S1 normal heart sound present, S2 normal heart sound present, no gallops, no murmurs and no rubs GI Inspection: Yes normal to inspection Back/Spine/Pelvis Back: No back tenderness Cervical Spine: cervical ROM normal, No cervical muscular tenderness, No Cervical spine tenderness and No step off deformity Thoracic/Lumbar Spine: thoracic and lumbar spine normal to inspection Neuro General: oriented to person, oriented to place, moves all extremities and CN's II-XI intact bilaterally Cranial nerves: Yes CN's II-XII intact bilaterally and Yes Equal, round and reactive pupils present Cognition (Neuro): normal cognition Motor exam (neuro): 5/5 motor strength present throughout Extrem General: Yes normal to inspection, Yes full ROM and Yes capillary refill normal Right upper extremity: normal to inspection, full ROM and normal capillary refill Left upper extremity: normal to inspection, full ROM and normal capillary refill Right lower extremity: normal to inspection, full ROM and normal capillary refill Left lower extremity: normal to inspection, full ROM and normal capillary refill Psych Appearance: grossly normal Mental Status: mental status grossly normal Affect: normal affect Attitude: cooperative Thought process: Normal thought process present Thought content: Normal thought content present Insight: Good insight present (Psych) Medications Administered Discontinued Medications Generic Name Dose Route Start Last Admin Trade Name Arvin PRN Reason Stop Dose Admin Bacitracin 1 appl 07/27/24 19:26 07/27/24 20:11 Bacitracin Oint 0.9 Gm Packet TOPICAL 07/27/24 19:27 1 appl ONCE ONE Administration Protocol Diphtheria/Tetanus/Acell Pertussis 0.5 ml 07/27/24 19:26 07/27/24 20:11 Diphth,Pertus(Acell),Tet Adult 0.5 Ml Syringe IM 07/27/24 19:27 0.5 ml .ONCE ONE Administration Medical Decision Making Medical Decision Making MDM Narrative: Patient is an 83 year old assigned male at with a history of Alzheimers, HTN, an atria fib presenting to the emergency department today with nasal and forehead abrasions after a trip and fall. Patient's physical exam showed abrasions as noted in the physical exam portion of this note.Patient's CT head, neck, and facial bones showed no acute process. I explained my physical exam findings as well as all test results to the patient and the patient's . I answered all questions asked by the patient and the patient's . Patient's abrasions were dressed with bacitracin, without incident. I stressed the importance of the patient taking his medication as directed (either prescribed or as the over the counter packaging recommends). I stressed the importance of the patient following up with his primary care provider. I stressed the importance of the patient returning to the emergency department immediately if his symptoms were to worsen or if he were to develop any dizziness, shortness of breath, difficulty breathing, chest pain, blurry vision, loss of vision, nausea, vomiting, abdominal pain, fever, chills, back pain, or any other complaints. Patient and the patient's verbalized agreement and understanding with this treatment plan and discharge. Differential Diagnosis Differential Diagnoses: The differential diagnosis associated with the presentation includes Abrasion Trip and fall Admission/Observation Consideration of admission/observation: Escalation of care including admission/observation considered Patient would have been admitted to the hospital had his work up had any findings where hospital admission was appropriate and his clinical presentation warranted hospital admission. Independent Interpretation I performed an independent interpretation of an: CT Scan Interpretation: My interpretation is in agreement with the radiologist's impression of these imaging studies. Report Number: [id number]: Total DLP = 1185.00 mGy-cm CLINICAL HISTORY: head strike, pain CT head without contrast Comparison: MR/REG - MRI BRAIN O [id number] - 05/15/19 14:[address] - BRAIN WO IV CONTRAST [id number] - 03/18/11 13:50 EDT Findings: No intra-axial mass, midline shift, hydrocephalus, or acute hemorrhage. Diffuse volume loss. Periventricular and subcortical white matter hypoattenuation likely chronic small-vessel ischemic changes. Intracranial atherosclerosis. Mucosal thickening in the right maxillary sinus and ethmoid air cells. The orbits are unremarkable. Soft tissue swelling in the right frontal scalp. No skull fracture. IMPRESSION: No acute intracranial findings. This document has been electronically signed by: Edmundo Jefferson MD on 07/27/2024 19:45:46 Dictated By: Edmundo Jefferson MD Signed By: Electronically signed by Edmundo Jefferson MD 07/27/241945 Report Number: [id number]: Total DLP = 1185.00 mGy-cm CLINICAL HISTORY: fall, headstrike, pain CT cervical spine without contrast Comparison: None Findings: Minimal anterolisthesis of C2 on C3 is favored to be chronic. Multilevel degenerative changes. No acute fractures or dislocations. No acute findings in the visualized brain. Soft tissues of the neck are normal. Biapical lung scarring. IMPRESSION: 1. No acute osseous injury. This document has been electronically signed by: Edmundo Jefferson MD on 07/27/2024 19:40:22 Dictated By: Edmundo Jefferson MD Signed By: Electronically signed by Edmundo Jefferson MD 07/27/241940 Report Number: [id number]: Total DLP = 1185.00 mGy-cm CLINICAL HISTORY: facial injury, pain CT maxillofacial without contrast Comparison: MR/REG - MRI BRAIN WWO [id number] - 05/15/19 14:[address] - BRAIN WO IV CONTRAST [id number] - 03/18/11 13:50 EDT Findings: No acute fractures. Temporomandibular joints are intact. Right frontal scalp soft tissue swelling. Mucosal thickening in the right maxillary sinus and ethmoid air cells. Unremarkable orbital contents. No foreign bodies. IMPRESSION: 1. No acute osseous injury. 2. Right frontal scalp soft tissue swelling. This document has been electronically signed by: Edmundo Jefferson MD on 07/27/2024 19:36:16 Dictated By: Edmundo Jefferson MD Signed By: Electronically signed by Edmundo Jefferson MD 07/27/241936 Radiology Impression Discussion of test interpretation with radiology: I have reviewed the radiologist's reading. Independent Historian Clinical information obtained from an independent historian. History obtained from or confirmed by: Spouse (patient's provided additional history and confirmed the history provided by the patient. ) and EMS (EMS provided additi onal history and confirmed the history provided by the patient.) Discharge Plan Discharge Clinical Impression: Fall, Abrasion of face Patient Disposition: Home, Self-Care Instructions: Fall Prevention for Older Adults (ED), Abrasion (ED) Additional Instructions: Your imaging today showed no acute fractures / breaks / bleeding. Keep your wounds clean. You may apply bacitracin ointment to the areas if you want. You do NOT have to cover the areas. Follow up with your primary care provider. Return to the emergency department immediately if your symptoms worsen or if you develop any numbness, tingling, dizziness, shortness of breath, difficulty breathing, chest pain, blurry vision, loss of vision, nausea, vomiting, abdominal pain, fever, chills, back pain, or any other complaints. Please see the information below about our Patient Portal. If you are not yet enrolled in the [facility] Patient Portal, you will receive an enrollment email invitation following your visit to any [facility] setting. You may also self-enroll in the Patient Portal by visiting our website: [email or web address] The following information is required to access the Patient Portal: - Your [facility] Medical Record Number - Your personal home email address (must match what is in your electronic medical record, Registration staff can assist with this) - Name - Date of Capabilities of the Patient Portal: - Message some providers - View upcoming appointments - Access your health summary, medical history, and visit history - View current conditions and allergies - View procedure and lab results - View your medications, including guidelines, side effects, and precautions - Complete pre-appointment questionnaires requested by your provider - Ready summary reports of your office visits and procedures To access the Patient Portal Mobile [employer], follow these directions: - Search [employer] in the [employer] Store or [employer] - Download the Jonny - Search for [facility] - Enter your login/password Prescriptions: No Action (DME) bed alarm See Rx Instructions .Route .MEDSULY Qty: 1 0RF Rx Instructions: As directed rivastigmine 4.6 mg/24 hour patch 24 hour 1 patch topical DAILY 30 Days Qty: 30 2RF valsartan 80 mg tablet 80 mg PO DAILY 90 Days Qty: 90 1RF Complete Multivitamin Tablet 1 tab PO DAILY [id number] oil-coQ10 1,900-640-50 mg/2.5 gram emulsion in packet PO ascorbic acid (vitamin C) 250 mg tablet 250 mg PO DAILY magnesium 250 mg tablet 250 mg PO DAILY Referrals: Sabrina Pickett MD [Primary Care Provider] - Print Language: Yemeni
[2024-07-27 16:00] VITALS: BP 163/75; PULSE 74; RESP 14; TEMP 36.6; O2SAT 95
[2024-07-27 16:06] VITALS: BP 163/75; PULSE 71; RESP 16; TEMP 36.6; O2SAT 96; BMI 25.8
[2024-07-27 19:07] VITALS: BP 152/72; PULSE 82; RESP 14; O2SAT 98
[2024-07-27] MEDS: Bacitracin Oint 0.9 GM PACKET 1 APPL TOPICAL (20:11)
[2024-07-27] MEDS: Diphth,Pertus(ACell),Tet Adult 0.5 ML SYRINGE IM (20:11)
[2024-07-27 20:14] VITALS: BP 155/73; PULSE 77; RESP 16; O2SAT 98
[2024-07-27 20:25] VITALS: BP 155/73; PULSE 77; RESP 16; TEMP 36.8; O2SAT 98
== END 2024-07-27 20:25 | disposition home or self-care (01) ==
PROVIDERS: Emergency Provider Emergency Medicine; PCP Internal Medicine
DX: S00.81XA Abrasion of other part of head, initial encounter (principal); R51.9 Headache, unspecified; M54.2 Cervicalgia; W01.0XXA Fall on same level from slipping, tripping and stumbling without subsequent striking against object, initial encounter; Y93.01 Activity, walking, marching and hiking; Y92.89 Other specified places as the place of occurrence of the external cause; Y99.8 Other external cause status; Z23 Encounter for immunization
CPT/HCPCS: 70450; 70486; 72125; 90471; 90715; 99283; 99284

== ENCOUNTER → 2024-07-27 16:17 | Outpatient (BNV) | payer OTHER, SELFPAY | PROVIDERS: Emergency Provider Emergency Medicine; PCP Internal Medicine; Visit Provider Radiology Diagnostic Radiology | DX: S00.93XA Contusion of unspecified part of head, initial encounter (principal) | CPT/HCPCS: 70450; 70486; 72125 ==

== ENCOUNTER 2024-07-31 14:00 | Outpatient (AMB) | payer OTHER, SELFPAY ==
[2024-07-31 14:25] VITALS: BP 132/70; BMI 26.8
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
--- OUTSIDE RECORDS SUMMARY | 2024-07-31 16:45 | XMS_ITS | Clinical Summary ---
Author Organization Unknown Care Team Providers Care Mechanical Project Engineer Name Role Phone ALEX NIETO MD, DIONI Unavailable Unavailable SOHAIL PATEL, BRAULIO Unavailable Unavailable Payers Payer Name Policy Type Policy Number Effective Date Expira tion Date [facility] [id number] [place] [id number] MEDIC[place] - [facility] [facility] [id number] Problems Condition Name Condition Details Condition Category [...] 500 mg tablet 12-22 00:00: 00 Yes [id number] 1 tablet DAILY 1 tablet DAILY (route: oral) Med Classific ation: Electroly te Balance-N utritiona l Products Colace 100 mg capsule 12-22 00:00: 00 Yes [id number] 1 capsule DAILY 1 capsule DAILY (route: oral) Med Classific ation: Gastroint estinal Therapy Agents Exelon Patch 4.6 mg/24 hour transdermal 12-22 00:00: 00 Yes [id number] 1 patch, transde rmal 24 hours DAILY 1 patch, transderma l 24 hours DAILY (route: transderma l) Med Classific ation: Cognitive Disorder Therapy Iron (ferrous sulfate) 325 mg (65 mg iron) tablet 12-22 00:00: 00 Yes [id number] 1 tablet EVERY OTHER DAY 1 tablet EVERY OTHER DAY (route: oral) Med Classific ation: Electroly te Balance-N utritiona l Products L-Lysine 500 mg tablet 12-22 00:00: 00 Yes [id number] 1 tablet DAILY 1 tablet DAILY (route: oral) Med Classific ation: Electroly te Balance-N utritiona l Products Mag Glycinate 100 mg tablet 12-22 00:00: 00 Yes [id number] 1 tablet DAILY 1 tablet DAILY (route: oral) Med Classific ation: Electroly te Balance-N utritiona l Products multivitami n with minerals-fe rrous fumarate 15 mg iron tablet 12-22 00:00: 00 Yes [id number] 1 tablet DAILY 1 tablet DAILY (route: oral) Med Classific ation: Electroly te Balance-N utritiona l Products NAC 600 mg capsule 12-22 00:00: 00 Yes [id number] 1 capsule DAILY 1 capsule DAILY (route: oral) Med Classific ation: Electroly te Balance-N utritiona l Products [place]-3 (with docosapenta enoic acid) 1,050 mg-1,200 mg capsule 12-22 00:00: 00 Yes [id number] 1 capsule DAILY 1 capsule DAILY (route: oral) Med Classific ation: Cardiovas cular Therapy Agents Q-absorb 100 mg capsule 12-22 00:00: 00 Yes [id number] 1 capsule DAILY 1 capsule DAILY (route: oral) Med Classific ation: Alternati ve Therapy valsartan 80 mg tablet 12-22 00:00: 00 Yes [id number] 1 tablet DAILY 1 tablet DAILY (route: oral) Med Classific ation: Cardiovas cular Therapy Agents Vitamin D3 25 mcg (1,000 unit) tablet 12-22 00:00: 00 Yes [id number] 1 tablet DAILY 1 tablet DAILY (route: oral) Med Classific ation: Electroly te Balance-N utritiona l Products vitamin K2 45 mcg capsule 12-22 00:00: 00 Yes [id number] 1 capsule DAILY 1 capsule DAILY (route: [...] AWARENESS FOR SAFETY AND WILL NOTIFY CLINICAL TOOLMAKER GRADE THREE AND PHYSICIAN/PROVIDER WITH ANY CHANGE IN CONDITION. [code = SKILLED NURSE WILL MAINTAIN SITUATIONAL AWARENESS FOR SAFETY AND WILL NOTIFY CLINICAL TOOLMAKER GRADE THREE AND PHYSICIAN/PROVIDER WITH ANY CHANGE IN CONDITION.] [...] CARE WILL BE ESTABLISHED THAT MEETS PATIENT'S FCI NEEDS AND INCLUDES PATIENT GOAL FOR HOME [...] End Date/Time Encounter Type Admission Type Attending [facility] Care Department Encounter ID Discharge Date Discharge Status Discharge Condition Discharge Reason Percent Goals Met 2023-12-23 00:00:00 2024-08-18 00:00:00 Outpatient RECERTIFIC ATION BRAULIO SAUCEDA [facility] [id number] .00
--- OUTSIDE RECORDS SUMMARY | 2024-07-31 16:45 | XMS_ITS ---
Author Organization [facility] Address [address] [place] [address] Care Team Providers Care Outer Diameter Grinder Tool Name Role Phone Zenon BELTRAN, Sabrina Primary Care Provider Unavail Kim Brown Unavailable [phone] REASON FOR VISIT not approved for pts insurance Encounters Encounter Location Date Provider Diagnosis [address] [address] 03/13/2024 Kim Henry Plan Of Treatment Next Appt Details Provider Name:Kim miranda, 10/02/2024 02:45:00 PM, [address] [facility], [address] [facility], [place], [address], Progress Notes * Damaso MEDINADOB: (83 yo M)Acc No.[id number]:03/13/2024 Progress Note Patient:?Damaso MEDINA Provider:?Kim Henry DPM :1940???Age:83 Y???Sex:Male Tru e:03/13/2024 Address:[address] [place] [address] [address], [place] [id number] Pcp:Sabrina Yarbrough MD Subjective: * Chief Complaints: [...] Henry DPM Date:?1 Generated for Celeste prince/Manpreet/Frederick on:?07/31/2024 04:45 PM EDT
--- OUTSIDE RECORDS SUMMARY | 2024-07-31 16:45 | XMS_ITS ---
Author Organization [facility] [place] Address [address] [place] [address] Care Team Providers Care Custom Garment Designer Name Role Phone Zenon BELTRAN, Sabrina Primary Care Provider Unavail able Kim Henry Unavailable [phone] Allergies No Known Allergies REASON FOR VISIT [...] Ordered Date Performed Result Body Sit e 79512-JDFKFWP NAIL, 6 OR MORE 06/18/2024 N/A 78947-IDPD SKIN LESIONS, 2 TO 4 06/18/2024 N/A Encounters Encounter Location Date [facility] [address] [place] [address] 06/18/2024 Kim Henry Atherosclerosis of [place] artery of both lower extremities, with unspecified presence of clinical manifestation I70.203 ; Tinea unguium B35.1 ; Pain in right toe(s) M79.674 and Pain in left toe(s) M79.675 Assessments Encounter Date Diagnosis (ICD Code) Assessment Notes Treatment Notes Treatment Clinical Notes Section Notes 06/18/2024 Atherosclerosis of [place] artery of both lower extremities, with unspecified presence of clinical manifestation (ICD-10 - I70.203) Q7(A), Q8(2B), Q9(1B,2C) 06/18/2024 Tinea unguium (ICD-10 - B35.1) 06/18/2024 Pain in right toe(s) (ICD-10 - M79.674) 06/18/2024 Pain in left toe(s) (ICD-10 - M79.675) Plan Of Treatment Pending Test Test Name Order Date 13929-WKMTNAM NAIL, 6 OR MORE 06/18/2024 29879-OIRS SKIN LESIONS, 2 TO 4 06/18/19 Next Appt Details Follow Up: 3 Months, Reason: Provider Name:Kim West ruth, 10/02/2024 02:45:00 PM, [address] [facility], [address], [place], [address], Procedure Notes * Category Sub-Category Detail Notes [...] to maintain effectiveness in symptomatic relief - 27344 Keratoma Treatment Parring or Cutting o f [...] instrumentation by the physician of record - 90617, Q8 Progress Notes * Damaso MEDINADOB: (83 yo M)Acc No.[id number]:06/18/2024 Progress Note Patient:?Damaso MEDINA Provider:?Kim Henry DPM :1940???Age:83 Y???Sex:Male Tru e:06/18/2024 Address:[address] [place], [place] [id number] Pcp:Sabrina Yarbrough MD Subjective: * Chief Complaints: [...] Medical History:? * Surgical History:?right knee replacement 10-16-13[facility] knee replacement 08-16-11 * Hospitalization/Major Diagno stic [...] head, B/L.? Assessment: * Assessment: 1.?Atherosclerosis of [place] artery of both lower extremities, with unspecified presence of clinical manifestation - I70.203 (Primary)???Notes :Q7(A), Q8(2B), Q9(1B,2C)???2.?Tinea unguium - B35.1???3.?Pain in right toe(s) - M79.674???4.?Pain in left toe(s) - M79.675??? Plan: * Treatment: 2.?Tinea unguium?Procedure: 31659-XMKEMQP NAIL, 6 OR MORE * Procedures:?Debride Nail [...] to maintain effectiveness in symptomatic relief - 42636.?Keratoma Treatment:?Parring or Cutting of Benign Hyperkeratotic Lesion(s)?(-56) [...] instrumentation by the physician of record - 06393, Q8.? * Procedure Codes:?86016 DEBRI DE NAIL, 6 OR MORE, Modifiers: XS 49416 TRIM SKIN LESIONS, 2 TO 4, Modifiers: XS , Q8 * Follow Up:?3 Months * Images: * Sign off status: Completed true * Provider:?Kim Henry DPM Date:?0 06/18/2024 Generated for Celeste prince/Manpreet/Frederick on:?07/31/2024 04:45 PM EDT History and Physical Notes * HPI (History of Present Illness) Category Sub-Category Detail Notes Category Not es At Risk footcare Pt States Last PCP Visit: Date: 4 Examination Category Sub-Category Detail Notes Category Not [...]
--- OUTSIDE RECORDS SUMMARY | 2024-07-31 16:45 | XMS_ITS | Clinical Summary ---
Author Organization Unknown Care Team Providers Care Earth Burner Name Role Phone ALEX NIETO MD, DIONI Unavailable Unavailable SOHAIL PATEL, BRAULIO Unavailable Unavailable Payers Payer Name Policy Type Policy Number Effective Date Expira tion Date [facility] [id number] [place] [id number] MEDICARE - [facility] - [facility] [id number] Problems Condition Name Condition Details Condition Category [...] 500 mg tablet 12-22 00:00: 00 Yes [id number] 1 tablet DAILY 1 tablet DAILY (route: oral) Med Classific ation: Electroly te Balance-N utritiona l Products Colace 100 mg capsule 12-22 00:00: 00 Yes [id number] 1 capsule DAILY 1 capsule DAILY (route: oral) Med Classific ation: Gastroint estinal Therapy Agents Exelon Patch 4.6 mg/24 hour transdermal 12-22 00:00: 00 Yes [id number] 1 patch, transde rmal 24 hours DAILY 1 patch, transderma l 24 hours DAILY (route: transderma l) Med Classific ation: Cognitive Disorder Therapy Iron (ferrous sulfate) 325 mg (65 mg iron) tablet 12-22 00:00: 00 Yes [id number] 1 tablet EVERY OTHER DAY 1 tablet EVERY OTHER DAY (route: oral) Med Classific ation: Electroly te Balance-N utritiona l Products L-Lysine 500 mg tablet 12-22 00:00: 00 Yes [id number] 1 tablet DAILY 1 tablet DAILY (route: oral) Med Classific ation: Electroly te Balance-N utritiona l Products Mag Glycinate 100 mg tablet 12-22 00:00: 00 Yes [id number] 1 tablet DAILY 1 tablet DAILY (route: oral) Med Classific ation: Electroly te Balance-N utritiona l Products multivitami n with minerals-fe rrous fumarate 15 mg iron tablet 12-22 00:00: 00 Yes [id number] 1 tablet DAILY 1 tablet DAILY (route: oral) Med Classific ation: Electroly te Balance-N utritiona l Products NAC 600 mg capsule 12-22 00:00: 00 Yes [id number] 1 capsule DAILY 1 capsule DAILY (route: oral) Med Classific ation: Electroly te Balance-N utritiona l Products [place]-3 (with docosapenta enoic acid) 1,050 mg-1,200 mg capsule 12-22 00:00: 00 Yes [id number] 1 capsule DAILY 1 capsule DAILY (route: oral) Med Classific ation: Cardiovas cular Therapy Agents Q-absorb 100 mg capsule 12-22 00:00: 00 Yes [id number] 1 capsule DAILY 1 capsule DAILY (route: oral) Med Classific ation: Alternati ve Therapy valsartan 80 mg tablet 12-22 00:00: 00 Yes [id number] 1 tablet DAILY 1 tablet DAILY (route: oral) Med Classific ation: Cardiovas cular Therapy Agents Vitamin D3 25 mcg (1,000 unit) tablet 12-22 00:00: 00 Yes [id number] 1 tablet DAILY 1 tablet DAILY (route: oral) Med Classific ation: Electroly te Balance-N utritiona l Products vitamin K2 45 mcg capsule 12-22 00:00: 00 Yes [id number] 1 capsule DAILY 1 capsule DAILY (route: [...] AWARENESS FOR SAFETY AND WILL NOTIFY CLINICAL HATCHERY EMPLOYEE AND PHYSICIAN/PROVIDER WITH ANY CHANGE IN CONDITION. [code = SKILLED NURSE WILL MAINTAIN SITUATIONAL AWARENESS FOR SAFETY AND WILL NOTIFY CLINICAL HATCHERY EMPLOYEE AND PHYSICIAN/PROVIDER WITH ANY CHANGE IN CONDITION.] [...] CARE WILL BE ESTABLISHED THAT MEETS PATIENT'S LONGTERM NEEDS AND INCLUDES PATIENT GOAL FOR HOME [...] End Date/Time Encounter Type Admission Type Attending [facility] Care Department Encounter ID Discharge Date Discharge Status Discharge Condition Discharge Reason Percent Goals Met 2023-12-23 00:00:00 2024-08-18 00:00:00 Outpatient RECERTIFIC ATION BRAULIO SAUCEDA [facility] [id number] .00
== END 2024-07-31 14:54 | disposition home or self-care (01) ==
LOC: HO.HMCH 14:00
PROVIDERS: PCP Internal Medicine; Visit Provider Internal Medicine
DX: G30.9 Alzheimer's disease, unspecified (principal); F02.80 Dementia in other diseases classified elsewhere, unspecified severity, without behavioral disturbance, psychotic disturbance, mood disturbance, and anxiety; I42.9 Cardiomyopathy, unspecified; I48.0 Paroxysmal atrial fibrillation; I10 Essential (primary) hypertension; R26.89 Other abnormalities of gait and mobility

== ENCOUNTER → 2024-07-31 14:00 | Outpatient (BNVA) | payer OTHER, SELFPAY | PROVIDERS: PCP Internal Medicine; Visit Provider Internal Medicine | DX: G30.9 Alzheimer's disease, unspecified (principal); F02.80 Dementia in other diseases classified elsewhere, unspecified severity, without behavioral disturbance, psychotic disturbance, mood disturbance, and anxiety; I42.9 Cardiomyopathy, unspecified; I48.0 Paroxysmal atrial fibrillation; I10 Essential (primary) hypertension; R26.89 Other abnormalities of gait and mobility | CPT/HCPCS: 96127; 99212 ==

== ENCOUNTER → 2024-12-24 23:59 | Outpatient (BNV) | payer OTHER, SELFPAY | PROVIDERS: PCP Internal Medicine; Visit Provider Internal Medicine | DX: G30.9 Alzheimer's disease, unspecified (principal); F02.80 Dementia in other diseases classified elsewhere, unspecified severity, without behavioral disturbance, psychotic disturbance, mood disturbance, and anxiety; I48.91 Unspecified atrial fibrillation | CPT/HCPCS: G0179 ==

== ENCOUNTER 2025-01-31 14:40 | Outpatient (AMB) | payer OTHER, SELFPAY ==
--- NOTE | 2025-01-31 14:50 | A.OFFPC_ITS ---
Vital Signs 01/31/25 14:51 Height 5 ft 8 in Weight 171 lb 6 oz BMI 26.1 BP 134/82 Blood Pressure Location Lt brachial Position Sitting Pulse 54 Pulse Source Pulse Oximeter Pulse Oximetry (%) 99 Oxygen Delivery Method Room Air Intake Visit Reasons: lipids, alzheimer's Benefits Technician Required: No Accompanied by: Self / Same As Patient Allergies No Known Drug Allergies Allergy (Verified 01/31/25 14:52) Unknown Tobacco use date assessed: 01/31/25 Fall risk assessment: 1 Fall in past year Last assessed Fall Risk: 01/31/25 Dental Screening Dental Screen Date: 01/31/25 Did you have a dental visit in the last 12 months?: Yes Did you have a dental problem in the last 6 months where you did not have access to dental care?: No Was dental information given to patient?: Patient has dentist HPI HPI Comments History of Present Illness Details This is an 84 year old male with Alzheimer's disease, hypertension, cardiomyopathy and atrial fibrillation that comes today accompanied by which is the main 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 I will increase rivastigmine due to cognitive impairment progressively worsen as per . BP well controlled. Cardiolyopathy and atrial fibrillation follow by cardiology. Has not gain 5 lbs in a week. Last echo done this year shows EF 55 to 60 % which is normal. [facility] Medical History (Updated 01/09/25 @ 15:53 by Sabrina Lin MD) Atrial fibrillation HTN (hypertension) Surgical History History of mitral valve repair Family History Father CVD (cardiovascular disease) Mother CVD (cardiovascular disease) Social History Housing: Condominium Alcohol intake: current Alcohol intake frequency: holidays/special occasions only Alcohol type: beer Patient Tobacco Use Status: Never used Tobacco e-Cigarette/Vaping Use: Never Used Second Hand Smoke Exposure: Yes service: Yes ([id number]) Current occupational status: retired Cognitive needs: No Hearing needs: Yes Vision needs: Yes Questionnaire Thrive Questionnaire Date Thrive assessed: 07/31/24 AUDIT C Alcohol Use Questionnaire (AUDIT-C) 1. How often do you have a drink containing alcohol?: Monthly or less 2. How many drinks containing alcohol do you have on a typical day when you are drinking?: 1 or 2 3. How often do you have six or more drinks on one occasion?: Never Total Score: 1 Score Reviewed/Action Taken: No CORI-7 AMB Questionnaire CORI-7 Date CORI - 7 assessed: 07/31/24 Source: Developed by Drs. Stewart Dugan, Lala Henderson, Og Murphy and colleagues, with an educational ronni from [employer]. Review of Systems Const All systems reviewed & are unremarkable except as noted in HPI and below Card Denies chest pain at rest, Denies chest pain with activity, Denies edema, Denies irregular heart rhythm, Denies claudication, Denies dyspnea, Denies dyspnea on exertion, Denies orthopnea, Denies paroxysmal nocturnal dyspnea and Denies slow heart rate Resp Denies cough, Denies dyspnea and Denies dyspnea on exertion GI Denies abdominal pain, Denies change in bowel habits, Denies excessive flatus, Denies nausea and Denies vomiting Physical exam (Primary Care) Vital Signs: Last Vital Signs Pulse 54 01/31/25 14:51 BP 134/82 01/31/25 14:51 Pulse Ox 99 01/31/25 14:51 Oxygen Delivery Method Room Air 01/31/25 14:51 BMI result Body Mass Index 26.1 Tobacco/Smoking Status: Tobacco use Status Tobacco use date assessed 01/31/25 01/31/25 14:53 Patient Tobacco Use Status Never used Tobacco 01/31/25 14:53 e-Cigarette/Vaping Use Never Used 01/31/25 14:53 Thrive Assessment: Date of Thrive Assessment Date Thrive assessed 07/31/24 01/31/25 14:53 Resp Effort & Inspection: normal respiratory effort Auscultation: clear to auscultation bilaterally Cardio Jugular venous distension: no JVD Rate: regular rate Rhythm: regular rhythm Heart sounds: S1 normal heart sound present and S2 normal heart sound present Extrem General: Yes full ROM Coding Level of Care Code Est Pt Level 4 (34247) Complex EM visit Add On G2211 Diagnoses Paroxysmal atrial fibrillation I48.0 Atrial fibrillation type: paroxysmal Primary hypertension I10 Hypertension type: primary hypertension Cardiomyopathy, unspecified type I42.9 Cardiomyopathy type: unspecified Alzheimer disease G30.9; F02.80 Time Spent (min) 22 Assessment & Plan Assessment & Plan (1) Atrial fibrillation: Code(s): I48.91 - Unspecified atrial fibrillation Category: Medical Qualifiers: Atrial fibrillation type: paroxysmal Qualified Code(s): I48.0 - Paroxysmal atrial fibrillation (2) HTN (hypertension): Code(s): I10 - Essential (primary) hypertension Category: Medical Qualifiers: Hypertension type: primary hypertension Qualified Code(s): I10 - Essential (primary) hypertension (3) Cardiomyopathy: Comment: Reduced RV systolic function Code(s): I42.9 - Cardiomyopathy, unspecified Category: Medical Qualifiers: Cardiomyopathy type: unspecified Qualified Code(s): I42.9 - Cardiomyopathy, unspecified (4) Alzheimer disease: Code(s): G30.9 - Alzheimer's disease, unspecified; F02.80 - Dementia in other diseases classified elsewhere, unspecified severity, without behavioral disturbance, psychotic disturbance, mood disturbance, and anxiety Category: Medical Plan Increase Rivastigmine. Continue valsartan for BP. For cardiomyopathy, the goal is to not increase 5 lbs in a week. Orders: Referrals Neurology Referral F02.80 - Dementia in other diseases classified elsewhere, unspecified severity, without behavioral disturbance, psychotic disturbance, mood disturbance, and anxiety, G30.9 - Alzheimer's disease, unspecified Medications: New [toilet seat elevator] As directed 1 ea 0RF F02.80 - Dementia in other diseases classified elsewhere, unspecified severity, without behavioral disturbance, psychotic disturbance, mood disturbance, and anxiety, G30.9 - Alzheimer's disease, unspecified, I42.9 - Cardiomyopathy, unspecified, I48.0 - Paroxysmal atrial fibrillation rivastigmine 9.5 mg transdermal DAILY 30 ea 3RF 30 days [bed rail] As directed 1 ea 0RF F02.80 - Dementia in other diseases classified elsewhere, unspecified severity, without behavioral disturbance, psychotic disturbance, mood disturbance, and anxiety, G30.9 - Alzheimer's disease, unspecified, I42.9 - Cardiomyopathy, unspecified, I48.0 - Paroxysmal atrial fibrillation, R26.89 - Other abnormalities of gait and mobility [step stool] As directed 1 ea 0RF F02.80 - Dementia in other diseases classified elsewhere, unspecified severity, without behavioral disturbance, psychotic disturbance, mood disturbance, and anxiety, G30.9 - Alzheimer's disease, unspecified, M25.562 - Pain in left knee, R26.89 - Other abnormalities of gait and mobility Discontinued rivastigmine Discontinued Reason: Patient Completed Course 1 patch topical DAILY 30 days 30 ea 2RF
[2025-01-31 14:51] VITALS: BP 134/82; PULSE 54; O2SAT 99; BMI 26.1
--- OUTSIDE RECORDS SUMMARY | 2025-01-31 16:23 | XMS_ITS | Encounter Summary ---
Author Organization [facility] Address [address] [place] [address] Phone Care Team Providers Care Chairman Of The Board Name Role Phone Quentin Dale MD Primary Care Provider Caroline Calloway MD Unavailable [phone] Sabrina Pickett MD Primary Care Provid er Logan Winn DO Unavailable [phone] Reason for Referral * Outpatient Procedure - Closed Specialty Diagnoses / Procedures Referred By Ciro stack Referred To Contact Diagnoses Permanent atrial fibrillation Procedures Adult Echo TTE Ace Gill MD Phone: tel: fax: [email or web address] Referral ID Status Reason Start Date Expiration Date Visits Re quested Visits Authorized [id number] Closed 10/24/2018 10/24/2019 1 1 Encounter Details Date Type Department Care Team (Latest Contact Info) Description 10/24/2018 Transcribe Orders [facility] [address], [address] [place] [address] Ace Gill MD [address] [id number] [email or web address] Permanent atrial fibrillation (Primary Dx) Social History Tobacco Use Types Packs/Day Years Used Date Smoking Tobacco: Never Smokeless Tobacco: Never Alcohol Use Standard Drinks/Week Comments Not Asked 0 (1 standard drink = 0.6 oz pur e alcohol) Sex and Gender Information Value Date Recorded Sex Assigned at Not on file Legal Sex Male 5:09 PM EST Gender Identity Not on file Sexual Orientation Not on file documented as of this encounter Progress Notes * Ace Gill MD - 10/24/2018 2:32 PM EDT Echo unchanged except for onset of atrial fibrillation. has he decided on anticoagulation? documented in this encounter Plan of Treatment Not on file documented as of this encounter Procedures Procedure Name Priority Date/Time Associated Diagnosis Comments TTE COMPREHENSIVE Routine 11/24/2018 1:2 1 PM EDT Permanent atrial fibrillation documented in this encounter Results * TTE COMPREHENSIVE (11/24/2018 1:21 PM EDT) Anatomical Region Laterality Modality Heart Ultrasound Other us Ace Gill MD CV ECHO ORDERABLES Final Result documented in this encounter Visit Diagnoses Diagnosis Permanent atrial fibrillation- Primary Atrial fibrillation documented in this encounter Additional Health Concerns Assessment Noted Time PHQ-2 Depression Total Score: 0 09/23/19 16 11:51 AM EDT documented as of this encounter Care Teams Chairman Of The Board Relationship Specialty Start Date End Date Quentin Dale MD [address] [place] [address] [place] [address] PCP - General 09/19/14 02/01/23 Sabrina Pickett MD [address] [place] [address] PCP - General Internal Medicine 02/02/23 Caroline Calloway MD [address] [place] [address] [place] [address] [email or web address] Geriatric Medicine 01/27/23 01/31/24 Logan Winn DO [address] [place] [id number] [email or web address] Geriatric Medicine 02/01/24 documented as of this encounter Additional Source Comments The information contained in this document represents components of the legal health record. It is not the complete legal health record.[facility]
--- OUTSIDE RECORDS SUMMARY | 2025-01-31 16:23 | XMS_ITS | Encounter Summary ---
Author Organization [facility] Address [address] [place] [address] [address] [place] [address] Phone Care Team Providers Care Illusionist Name Role Phone Quentin Dale MD Primary Care Provider Caroline Calloway MD Unavailable [phone] Sabrina Pickett MD Primary Care Provid er Logan Winn DO Unavailable [phone] Encounter Details Date Type Department Care Team (Late st Contact Info) Description 08/06/2022 Procedure [facility], [address] [address] Social History Tobacco Use Types Packs/Day Years Used Date Smoking Tobacco: Never Smokeless Tobacco: Never Alcohol Use Standard Drinks/Week Comments Not Currently 0 (1 standard drink = 0.6 oz pur e alcohol) Sex and Gender Information Value Date Recorded Sex Assigned at Not on file Legal Sex Male 5:09 PM EST Gender Identity Not on file Sexual Orientation Not on file documented as of this encounter Plan of Treatment Not on file documented as of this encounter Visit Diagnoses Not on filedocumented in this encounter Additional Health Concerns Assessment Noted Time PHQ-2 Depression Total Score: 0 09/23/19 16 11:51 AM EDT documented as of this encounter Care Teams Illusionist Relationship Specialty Start Date End Date Quentin Dale MD [address] [place] [address] [place] [address] PCP - General 09/19/14 02/01/23 Sabrina Pickett MD [address] [place] [id number] PCP - General Internal Medicine 02/02/23 Caroline Calloway MD [address] [place] [address] [place] [address] Geriatric Medicine 01/27/23 01/31/24 Logan Winn DO [address] [place] [id number] Geriatric Medicine 02/01/24 documented as of this encounter Additional Source Comments The information contained in this document represents components of the legal health record. It is not the complete legal health record.[facility]
--- OUTSIDE RECORDS SUMMARY | 2025-01-31 16:23 | XMS_ITS | Encounter Summary ---
Author Organization [facility] Address [address] [place] [address] [place] [id number] Phone Care Team Providers Care Financial Planning Advisor Name Role Phone Quentin Dale MD Primary Care Provider Caroline Calloway MD Unavailable [phone] Sabrina Pickett MD Primary Care Provid er Logan Winn DO Unavailable [phone] Encounter Details Date Type Department Care Team (Late st Contact Info) Description 09/22/2015 Ancillary Orders [facility] [address] [place] [address] Jose Pierce MD [address] [place] [address] [email or web address] S/P mitral valve repair (Primary Dx) Social History Tobacco Use Types Packs/Day Years Used Date Smoking Tobacco: Unknown Sex and Gender Information Value Date Recorded Sex Assigned at Not on file Legal Sex Male 5:09 PM EST Gender Identity Not on file Sexual Orientation Not on file documented as of this encounter Plan of Treatment Not on file documented as of this encounter Results * TTE COMPREHENSIVE (09/23/2015 10:53 AM EDT) Ascending Aorta Diameter 36 mm Left Ventricle Internal Diameter End Diastole 51 42 - 58 mm Left Ventricle Internal Diameter End Systole 38 25 - 40 mm Raw LV EF% 44 % Left Ventricular Posterior Wall Thickness 10 mm Interventricular Septum Thickness 9 mm Left Ventricular Mass 179.86 g Relative Wall Thickness 0.39 0.22 - 0.42 Body Surface Area 1.99 m2 Left Ventricle indexed to BSA 90.38 g/mL Mitral Valve Mean Gradient 4.00 mmHg Mitral Valve Peak Gradient 13.44 mmHg Tricuspid Valve Peak Gradient 16.00 mmhg Left Atrium Dimension Anterior-Posterior 53 15 - 40 mm Tricuspid Valve Peak Velocity 2.08 m/s Right Ventricle to Right Atrium Pressure Gradient 17.31 mmHg Right Ventricle Peak Systolic Pressure 26.54 mmHg Right Ventricle Estimated PA Pressure 26.54 mmHg Height 182.88 cm Weight 77.11 kg Aortic Sinus Diameter 36 mm Ejection Fraction 55 50 - 75 % Left Ventricular Apical Contribution Systolic BP 160 mmHg Diastolic BP 76 mmHg Left Ventricle E Wave Speed 4.6 cm/s Left Ventricle A Wave Speed 13.9 cm/s Left Ventricle Ea Septal Wave Speed cm/s Echo E/Ea Left Ventricle Ea Lateral Wave Speed cm/s Mitral Valve Deceleration Time ms Left Ventricle Diastolic Volume mL Left Ventricle Diastolic Volume Index mL/m2 Left Ventricle Systolic Volume mL Left Ventricle Systolic Volume Index mL/m2 Left Ventricular Outflow Tract Velocity m/s Left Ventricular Outflow Tract Gradient at Rest mmHg Left Ventricle Mid Gradient mmHg Left Ventricular Outflow Tract Gradient at Valsalva mmHg Left Atrium Dimension Superior-Inferior 29 - 53 mm Left Atrium Dimension Medial-Lateral 29 - 49 mm Left Atrial Appendage Velocity cm/s Left Atrial Volume mL Left Atrial Volume Index mL/m2 Pulmonary Vein S/D Ratio Pulmonary Venous Atrial Reverse Wave Duration msec Pulmonary Peak Systolic Velocity m/s Pulmonary Peak Diastolic Velocity m/s Aortic Valve Peak Gradient mmHg Aortic Valve Mean Gradient mmHg Aortic Valve Graft Diameter mm [id number] mmHg LVOT Gradient Mid Ventricle Peak Valsalva mmHg Left Ventricular Outflow Tract Diameter cm Aortic Valve Area cm2 Aortic Valve Area Index cm2/m2 Aortic Valve Annulus Dimension 1 20 - 32 mm Sinotubular Junction Diameter 23 - 35 mm Aortic Arch Diameter mm Aortic Isthmus Diameter mm Aortic Valve Aliasing Velocity cm/s Sinus of Valsalva Index 1.3 - 2.1 cm/m2 Proximal Ascending Aorta Index 1.1 - 1.9 cm/m2 Aortic Valve Regurgitant Volume ml Aortic Valve Regurgitant Fraction % Aortic Valve Regurgitation Pressure Half Time ms Aortic Valve Vena Contracta cm Aortic Valve Vnyquist m/s Aortic Valve PISA Radius cm Aortic Regurgitation Max Velocity m/s Aortic Valve EROA cm2 Aortic Valve Deceleration Time ms Aortic Valve Jet Height to Left Vent Outflow Tract Descending Aorta Diameter mm Aortic Valve Regurgitation Time Volume Integral cm Aortic Valve Peak Diastolic Velocity cm/s Aortic Valve Annulus Area cm2 Aortic Valve Annulus Dimension 2 mm Aortic Valve Annulus Perimeter mm Aortic Valve Mean Diameter mm Aortic Valve Distance to Coronary [place] (LM) mm Aortic Valve Distance to Coronary [place] (RCA) mm Aortic Valve Left Coronary Leaflet Length mm Aortic Valve Right Coronary Leaflet Length mm Aortic Valve Peak Velocity cm/s Mitral Valve Total Score Mitral Valve Thickening Score Mitral Valve Mobility Score Mitral Valve Calcification Score Mitral Valve Subvalvular Score Mitral Valve Gradient HR 96 bpm Mitral Valve Gradient Cardiac Output L/min Mitral Valve Peak Gradient at A Wave mmHg Mitral Valve Area Planimetry Equation cm2 Mitral Valve Area Continuity Equation cm2 Mitral Valve Area PISA Equation cm2 Mitral Valve Vnyquist m/s Mitral Valve Area cm2 Mitral Valve PISA Angle Correction deg Mitral Valve Regurgitant Fraction % Mitral Valve Jet Area Ratio Mitral Valve Vena Contracta cm Mitral Valve EROA cm2 Mitral Valve PISA Radius cm Mitral Valve Aliasing Velocity cm/s Mitral Valve Peak Velocity cm/s Mitral Valve Regurgitation Time Volume Integral cm Mitral Valve EROA 3D Equation cm2 Mitral Valve Regurgitant Volume PISA Equation ml Mitral Valve Regurgitant Volume Doppler ml Mitral Valve C-SEPT mm Mitral Valve Coaptation Length mm Mitral Valve Tenting Area cm2 Mitral Valve Tenting Volume ml Mitral Valve Anterior Leaflet Length mm Mitral Valve Anterior Leaflet Area cm2 Mitral Valve Posterior Leaflet Length mm Mitral Valve Posterior Leaflet Area cm2 Mitral Valve Anterior/Posterior Ratio Mitral Valve Annular Diameter AP Diastolic mm Mitral Valve Annular Diameter AP Systolic mm Mitral Valve Annular Diameter Commissural Diastolic mm Mitral Valve Annular Diameter Commissural Systolic mm Mitral Valve Annular Area Systolic cm2 Mitral Valve Annular Perimiter Systolic mm Aorta Mitral Angle deg Mitral Valve Annular Area Diastolic cm2 Mitral Valve Annular Perimiter Diastolic mm Mitral Valve Intertrigonal Distance Systolic mm Mitral Valve Intertrigonal Distance Diastolic mm Mitral Valve E Wave Speed cm/s Mitral Valve A Wave Speed cm/s Mitral Valve Ea Septal Wave Speed cm/s Mitral Valve Echo E/Ea Mitral Valve Ea Lateral Wave Speed cm/s Mitral Valve Area Pressure Half Time Eq cm2 Pericardium Effusion Dimension 1 mm Pericardium Effusion Dimension 2 mm Pericardium Effusion Dimension 3 mm Pulmonary Artery Pressure mmHg Inferior Vena Cava Diameter 0.0 - 21 mm Right Ventricular Outflow Tract Stroke Volume cm3 Right Ventricle TAPSE 17 - 31 mm Right Ventricle Tricuspid Anular Systolic Motion (S') cm/s Right Ventricle Ejection Fraction 3D Equation 45 - 71 % Right Ventricle Basal Diameter 25 - 41 mm Right Ventricle Mid Diameter 19 - 35 mm Right Ventricle Longitudinal Diameter 59 - 83 mm Right Ventricular Outflow Tract PLAX Diameter 20 - 30 mm Right Ventricular Outflow Tract Proximal Diameter 21 - 35 mm Right Ventricular Outflow Tract Distal Diameter 17 - 27 mm Right Ventricle Wall Thickness Max 1 - 5 mm Right Ventricle Pulse Doppler S Wave 9.5 - 18.7 cm/s Right Ventricle Color Doppler S Wave 6 - 13.4 cm/s Right Ventricle Fractional Area Change (FAC) Right Ventricle Free Wall 2D Strain -20 - -38 % Right Ventricle Pulse Doppler MPI 0.09 - 0.43 Right Ventricle Tissue Doppler MPI 0.22 - 0.54 Right Atrium Dimension Superior-Inferior mm Right Atrium Dimension Medial-Lateral mm Pulmonary Artery Systolic Pressure Estimated 22 mmHg Right Atrium Pressure Estimated 5 mmHg Tricuspid Valve Pressure Half Time Equation cm2 Tricuspid Valve Mean Gradient mmHg Tricuspid Valve Annulus Area 9.51 - 35.07 cm2 Tricuspid Valve Annulus Dimension Anterior-Posterior mm Tricuspid Valve Annulus Dimension Medial Lateral mm Tricuspid Valve Anterior Leaflet Area cm2 Tricuspid Valve Posterior Leaflet Area cm2 Tricuspid Valve Septal Leaflet Area cm2 Tricuspid Valve Deceleration Time ms Tricuspid Valve E Wave Velocity Max cm/s Tricuspid Valve Vena Contracta cm Tricuspid Valve Regurgitant Volume ml Tricuspid Valve Regurgitant Volume Fraction % Tricuspid Valve Vnyquist m/s Tricuspid Valve PISA Radius cm Tricuspid Valve EROA PISA Equation cm2 Pulmonary Valve Peak Gradient mmHg Pulmonary Valve Mean Gradient mmHg Pulmonary Valve Peak Velocity m/s Pulmonary Valve Area cm2 Right Ventricular Outflow Tract Gradient mmHg Right Ventricular Outflow Tract Peak Velocity m/s Pulmonary Valve Annulus Dimension mm Pulmonary Artery Main - Dimension mm Pulmonary Artery Right - Dimension mm Pulmonary Artery Left - Dimension mm Right Ventricular Outflow Tract Pressure mmHg Pulmonary Artery Acceleration Time msec Pulmoary Artery Deceleration Time msec Pulmonary Artery End Diastolic Pressure mmHg Pulmonary Valve Pressure Half Time ms Patent Ductus Arteriosus Dimension mm Right Ventricular Outflow Tract Velocity Time Integral cm Mitral Valve Vegetation Size Anterior 1 mm Mitral Valve Vegetation Size Anterior 2 mm Mitral Valve Vegetation Size Anterior 3 mm Mitral Valve Vegetation Size Posterior 1 mm Mitral Valve Vegetation Size Posterior 2 mm Mitral Valve Vegetation Size Posterior 3 mm Mitral Valve Annular Diameter AP mm Mitral Valve Annular Diameter ML mm Mitral Valve Prosthetic Peak Gradient mmHg Mitral Valve Prosthetic Mean Gradient mmHg MV Pressure 1/2 time mmHg Wall Thickness Max mm Left Ventricle Aneurysm Dimension 1 mm Left Ventricle Aneurysm Dimension 2 mm Left Ventricle Aneurysm Dimension 3 mm Left Ventricle Pseudoaneurysm Dimension 1 mm Left Ventricle Pseudoaneurysm Dimension 2 mm Left Ventricle Pseudoaneurysm Dimension 3 mm Left Ventricle Thrombus Dimension 1 mm Left Ventricle Thrombus Dimension 2 mm Left Ventricle Thrombus Dimension 3 mm Left Ventricle Mass Dimension 1 mm Left Ventricle Mass Dimension 2 mm Left Ventricle Mass Dimension 3 mm Right Ventricle Linear Dimension mm Right Ventricle Thrombus Dimension 1 mm Right Ventricle Thrombus Dimension 2 mm Right Ventricle Thrombus Dimension 3 mm Ventricular Septal Defect Dimension mm Ventricular Septal Defect Dimension 2 mm Conoventricular Ventricular Septal Defect Dimension 1 mm Conoventricular Ventricular Septal Defect Dimension 2 mm Membranous Ventricular Septal Defect Dimension 1 mm Membranous Ventricular Septal Defect Dimension 2 mm Muscular Ventricular Septal Defect Dimension 1 mm Muscular Ventricular Septal Defect Dimension 2 mm Canal Type Ventricular Septal Defect Dimension 1 mm Canal Type Ventricular Septal Defect Dimension 2 mm Intraconal Ventricular Septal Defect Dimension 1 mm Intraconal Ventricular Septal Defect Dimension 2 mm Post Infarction Ventricular Septal Defect Dimension 1 mm Post Infarction Ventricular Septal Defect Dimension 2 mm Ventricular Septal Defect Peak Velocity Ventricular Septal Defect Gradient mmHg Post Operative Ventricular Septal Defect Dimension 1 mm Post Operative Ventricular Septal Defect Dimension 2 mm Echo Qp/Qs Ratio Mechanical Assist RPM 1 RPM Aortic Valve Distance to Cannula Tip mm Cannula Left Ventricle Inflow Velocity m/s Cannula Left Ventricle Outflow Velocity m/s Cannula Right Ventricle Inflow Velocity m/s Cannula Right Ventricle Outflow Velocity m/s LVOT VTI REST cm RPM1 Left Ventricle Inner Diameter End Diastolic mm RPM1 Left Ventricle Inner Diameter End Systolic mm RPM1 Left Ventricle End Diastolic Velocity m/s RPM1 Left Ventricle End Systolic Velocity m/s RPM1 Tricuspid Regurgitation Velocity Max m/s RPM1 Right Ventricle Systolic Pressure mmHg RPM1 Left Ventricular Outflow Tract Velocity Time Integral cm RPM1 Mitral Valve Deceleration Time ms Mechanical Assist RPM 2 RPM RPM2 Left Ventricle Inner Diameter End Diastolic mm RPM2 Left Ventricle Inner Diameter End Systolic mm RPM2 Left Ventricle End Diastolic Velocity m/s RPM2 Left Ventricle End Systolic Velocity m/s RPM2 Tricuspid Regurgitation Velocity Max m/s RPM2 Right Ventricle Systolic Pressure mmHg RPM2 Left Ventricular Outflow Tract Velocity Time Integral cm RPM2 Mitral Valve Deceleration Time ms Mechanical Assist RPM 3 RPM RPM3 Left Ventricle Inner Diameter End Diastolic mm RPM3 Left Ventricle Inner Diameter End Systolic mm RPM3 Left Ventricle End Diastolic Velocity m/s RPM3 Left Ventricle End Systolic Velocity m/s RPM3 Tricuspid Regurgitation Velocity Max m/s RPM3 Right Ventricle Systolic Pressure mmHg RPM3 Left Ventricular Outflow Tract Velocity Time Integral cm RPM3 Mitral Valve Deceleration Time ms Mechanical Assist RPM 4 RPM RPM4 Left Ventricle Inner Diameter End Diastolic mm RPM4 Left Ventricle Inner Diameter End Systolic mm RPM4 Left Ventricle End Diastolic Velocity m/s RPM4 Left Ventricle End Systolic Velocity m/s RPM4 Tricuspid Regurgitation Velocity Max m/s RPM4 Right Ventricle Systolic Pressure mmHg RPM4 Left Ventricular Outflow Tract Velocity Time Integral cm RPM4 Mitral Valve Deceleration Time ms Mechanical Assist RPM 5 RPM RPM5 Left Ventricle Inner Diameter End Diastolic mm RPM5 Left Ventricle Inner Diameter End Systolic mm RPM5 Left Ventricle End Diastolic Velocity m/s RPM5 Left Ventricle End Systolic Velocity m/s RPM5 Tricuspid Regurgitation Velocity Max m/s RPM5 Right Ventricle Systolic Pressure mmHg RPM5 Left Ventricular Outflow Tract Velocity Time Integral cm RPM5 Mitral Valve Deceleration Time ms Mechanical Assist RPM 6 RPM RPM6 Left Ventricle Inner Diameter End Diastolic mm RPM6 Left Ventricle Inner Diameter End Systolic mm RPM6 Left Ventricle End Diastolic Velocity m/s RPM6 Left Ventricle End Systolic Velocity m/s RPM6 Tricuspid Regurgitation Velocity Max m/s RPM6 Right Ventricle Systolic Pressure mmHg RPM6 Left Ventricular Outflow Tract Velocity Time Integral cm RPM6 Mitral Valve Deceleration Time ms RAMP Study Optimal Setting Value Left Atrium Thrombus Dimension 1 mm Left Atrium Thrombus Dimension 2 mm Left Atrium Thrombus Dimension 3 mm Left Atrium Mass Dimension 1 mm Left Atrium Mass Dimension 2 mm Left Atrium Mass Dimension 3 mm Pulmonary Veins Peak Doppler Velocity m/s Pulmonary Veins Peak Gradient mmHg Pulmonary Veins Mean Gradient mmHg Right Atrium Thrombus Dimension 1 mm Right Atrium Thrombus Dimension 2 mm Right Atrium Thrombus Dimension 3 mm Right Atrium Mass Dimension 1 mm Right Atrium Mass Dimension 2 mm Right Atrium Mass Dimension 3 mm Atrial Septal Defect Dimension 1 mm Atrial Septal Defect Dimension 2 mm Atrial Septal Defect Area cm2 Interatrial Septum PFO Diameter mm Interatrial Septum PFO Tunnel Length mm Interatrial Septum Maximum Excursion mm Atrial Septal Defect Gradient mmHg Aortic Valve Time Velocity Integral cm Left Ventricular Outflow Tract Stroke Volume mL Left Ventricular Outflow Tract Stroke Volume Index mL/m2 Left Ventricular Outflow Tract Cross Sectional Area cm2 Aortic Valve Dimensionless Index Aortic Valve Vegetation Dimension 1 mm Aortic Valve Vegetation Dimension 2 mm Aortic Valve Vegetation Dimension 3 mm Aortic Valve Abscess Dimension 1 mm Aortic Valve Abscess Dimension 2 mm Aortic Valve Abscess Dimension 3 mm Aortic Valve Mass Dimension 1 mm Aortic Valve Mass Dimension 2 mm Aortic Valve Mass Dimension 3 mm Aortic Valve Prosthetic Peak Gradient mmHg Aortic Valve Prosthetic Mean Gradient mmHg Aortic Valve Coaptation Length mm Aortic Valve Coarctation Velocity Peak m/s Aortic Valve Coarctation Peak mmHg Aortic Valve Coarctation Mean mmHg Left Ventricular Outflow Tract Gradient Peak Dobutamine mmHg Tricuspid Valve Annulus Dimension 1 mm Tricuspid Valve Annulus Dimension 2 mm Tricuspid Valve Annulus Dimension 3 mm Tricuspid Valve Vegetation Dimension 1 mm Tricuspid Valve Vegetation Dimension 2 mm Tricuspid Valve Vegetation Dimension 3 mm Tricuspid Valve Mass Dimension 1 mm Tricuspid Valve Mass Dimension 2 mm Tricuspid Valve Mass Dimension 3 mm Tricuspid Valve Prosthetic Peak Gradient mmHg Tricuspid Valve Prosthetic Mean Gradient mmHg Pulmonary Valve Vegetation Dimension 1 mm Pulmonary Valve Vegetation Dimension 2 mm Pulmonary Valve Vegetation Dimension 3 mm Pulmonary Valve Mass Dimension 1 mm Pulmonary Valve Mass Dimension 2 mm Pulmonic Valve Prosthetic Peak Gradient mmHg Pulmonic Valve Prosthetic Mean Gradient mmHg Proximal Left Coronary Artery Dimension mm Proximal Right Coronary Artery Dimension mm Pericardium Extracardiac Mass Dimension 1 mm Pericardium Extracardiac Mass Dimension 2 mm Dyssynchrony IVMD Patient Value ms Dyssynchrony IVMD After Optimization ms Dyssynchrony LVPEI Patient Value ms Dyssynchrony LVPEI After Optimization ms Dyssynchrony LVFT/RR Patient Value % Dyssynchrony LVFT/RR After Optimization % Dyssynchrony OPWD Patient Value ms Dyssynchrony OPWD After Optimization ms Dyssynchrony MTD Patient Value ms Dyssynchrony MTD After Optimization ms Dyssynchrony Ts-DS Patient Value ms Dyssynchrony Ts-DS After Optimization ms Dyssynchrony Speckle Strain Patient Value ms Dyssynchrony Speckle Strain After Optimization ms Dyssynchrony Tm_SV Patient Value ms Dyssynchrony Tm_SV After Optimization ms Dyssychrony VVI AF Sensed AV Delay ms Dyssynchrony VVI AF Paced AV Delay ms Dyssynchrony VVI AF VV Offset ms Dyssychrony AV Optimization Sensed AV Delay ms Dyssychrony AV Optimization Paced AV Delay ms Dyssychrony VV Optimization Optimized Setting ms Anatomical Region Laterality Modality Heart [facility] Narrative 09/23/2015 5:35 PM EDT The mitral valve is s/p repair. A complete annuloplasty ring is present and appears to be in stable position. The mean trans mitral valve gradient is 4 mmHg. The mitral valve gradient was obtained at a heart rate of 96. There is trace to mild valvular mitral regurgitation detected by spectral and color Doppler. No paravalvular leaks. LV and RV size and systolic function are normal without regional variability. The estimated LVEF is 55%. Left Ventricle The left ventricular cavity size and wall thickness are normal. Systolic function appears normal. There are no segmental left ventricular wall motion abnormalities noted. The estimated ejection fraction is 55% (Normal 50-75%). The left ventricular ejection fraction was measured by visual estimate. Right Ventricle The right ventricular size is normal. The right ventricular systolic function is normal. Left Atrium The left atrium is mildly dilated. The pulmonary venous flow profiles are normal. Right Atrium The right atrium is mildly dilated. The IVC is normal in size (2.1cm or less). The IVC demonstrates normal collapse with inspiration. Mitral Valve The peak trans mitral valve gradient is 13.44 mmHg. The mean trans mitral valve gradient is 4 mmHg. The mitral valve gradient was obtained at a heart rate of 96. There is diffuse mild increased mitral valve leaflet thickening. A complete annuloplasty ring is present. The ring appears to be in stable position. There is trace to mild mitral regurgitation detected by spectral and color Doppler. Tricuspid Valve The tricuspid valve appears normal. There is color and spectral Doppler evidence of trace tricuspid regurgitation. The estimated PA systolic pressure is 22 mmHg. This is based on an estimated RA pressure of 5 mmHg and the peak tricuspid regurgitant velocity of 2.08 m/s Aortic Valve The aortic valve is tricuspid. LCC focal thickening at base of cusp. There is no evidence of valvular aortic stenosis. There is no evidence of aortic regurgitation by color and spectral Doppler. The visualized portions of the thoracic aorta appear normal. Pulmonic Valve The pulmonary valve appears normal. There is no stenosis present in the pulmonic valve. There is evidence of trace pulmonary regurgitation by color and spectral Doppler. The pulmonary artery appears normal. Pericardium There is no evidence of pericardial effusion. Interventricular Septum Abnormal interventricular septal motion is consistent with post-operative state. General Findings The image quality was good (2). Comparison Findings Compared to prior study from 10/27/2011, no important change. us Jose Pierce MD CV ECHO ORDERABLES Final Result documented in this encounter Visit Diagnoses Diagnosis S/P mitral valve repair- Primary Other postprocedural status S/P mitral valve repair Other postprocedural status documented in this encounter Care Teams Financial Planning Advisor Relationship Specialty Start Date End Date Quentin Dale MD [address] [place] [address] [place] [address] PCP - General 09/19/14 02/01/23 Sabrina Pickett MD [address] [place] [id number] PCP - General Internal Medicine 02/02/23 Caroline Calloway MD [address] [place] [address] [place] [id number] Geriatric Medicine 01/27/23 01/31/24 Logan Winn DO [address] [place] [id number] Geriatric Medicine 02/01/24 documented as of this encounter Additional Source Comments The information contained in this document represents components of the legal health record. It is not the complete legal health record.[facility]
--- OUTSIDE RECORDS SUMMARY | 2025-01-31 16:23 | XMS_ITS | Clinical Summary ---
Author Organization [facility] Address [address] [place] [address] [place] [id number] Phone Care Team Providers Care Patient Flow Coordinator Name Role Phone Sabrina Pickett MD Primary Care Provid er Logan Winn DO Unavailable [phone] Allergies No known active allergies Medications valsartan (DIOVAN) 80 MG tablet Take 80 mg by mouth daily. Active cholecalciferol (VITAMIN D3) 2,000 unit capsule Take 2,000 Units by mouth daily. Active coenzyme Q10 100 mg capsule Take 100 mg by mouth daily. Active omega 3-jwc-ztr-fish oil 1,000 mg (120 mg-180 mg) Cap Take 1 capsule by mouth daily. Active therapeutic multivitamin tablet Take 1 tablet by mouth daily. Active rivastigmine (EXELON) 4.6 mg/[address] 1 patch onto the skin daily. 30 patch 6 3 Active ferrous sulfate 325 mg (65 mg wiyot iron) tablet Take 325 mg by mouth daily with breakfast. 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 I have pushed his lisinopril to 20 mg and asked him to begin to follow his blood pressure at home. Assessment & Plan (12/27/2018 1:31 PM EDT): Elevated today but he believes is much better at home. I wanted to push his lisinopril to 20 but he is going to measure his blood pressure at home after purchasing a new device and call if he is consistently over 130/80. Assessment & Plan (10/02/2018 8:43 AM EDT): Borderline controlled today. No changes but will reevaluate on his return. Assessment & Plan (09/22/2017 9:05 AM EDT): Reasonable control on present therapy. No medication changes. Chronic atrial fibrillation 09/23/2015 Assessment & Plan (04/30/2019 11:35 AM EST): Rate controlled. I again mentioned the need for anticoagulation. Assessment & Plan (12/27/2018 1:31 PM EDT): Long discussion about anticoagulants. At this juncture I stopped his aspirin since there is no data to support it. He is going to have his daughter call me to discuss this further and he will review with his insurance agents whether he can switch to a policy that actually cover his medications. Assessment & Plan (10/02/2018 8:43 AM EDT): Well-tolerated. We again discussed the need for anticoagulation. He is unwilling to go on Coumadin although he may be willing to use 1 of the newer agents he is not sure he has any coverage. 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 Assessment & Plan (09/22/2017 9:04 AM EDT): ECG today confirms ongoing rate controlled atrial fibrillation with frequent wide complex beats presume the ventricular origin but one could not exclude apparent conduction. Again he is unaware of this. We once again discussed the risk of avoiding anticoagulation. We did discuss using one of the newer agents despite his remote history of valvular heart disease. He, unfortunately, has no formulary coverage. 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 Suggest repeat in about 2 years. Assessment & Plan (12/27/2018 1:30 PM EDT): His echocardiogram from mid November with the exception of the onset of atrial fibrillation is unchanged. Left atrium remains severely dilated but only trace mitral regurgitation. Ejection fraction remains low normal in the low 50s. Assessment & Plan (10/02/2018 8:42 AM EDT): Last echocardiogram was in 2016. I have asked him to have that repeated. Assessment & Plan (09/22/2017 9:03 AM EDT): Continuing to do well. Very little change in anatomy over 18 year interval. Dyslipidemia 10/11/2012 Overview (07/06/2014): Dyslipidemia Assessment & Plan (12/27/2018 1:32 PM EDT): Last LDL from September was 130. I do not see a strong indication for statins. Assessment & Plan (09/22/2017 9:05 AM EDT): He'll have a lipid profile drawn to see whether reinstituting atorvastatin is indicated. Resolved Problems Problem Noted Date Diagnosed Date Resolved Date Hyperlipidemia 09/23/2015 09/21/2017 Paroxysmal atrial fibrillation 10/11/2012 09/21/2017 Overview (07/06/2014): Paroxysmal atrial fibrillation; No palpitations Mitral valve insufficiency 10/11/2012 0 09/21/2017 Overview (07/06/2014): Mitral valve regurgitation Immunizations Immunization Administration Dates Next Due Influenza High-Dose Quadrivalent Preservative Fr ee IM 02/10/2023,02/10/2022 Influenza, Unspecified Formulation 02/17/2022, Pneumococcal conjugate PCV13 07/16/2021 Social History Tobacco Use Types Packs/Day Years Used Date Smoking Tobacco: Never Smokeless Tobacco: Never Tobacco Cessation:Counseling Given: Not Answered Alcohol Use Standard Drinks/Week Comments Not Currently 0 (1 standard drink = 0.6 oz pur e alcohol) Education Answer Date Recorded Are you interested in more education? Not on hannah e 09/10/2022 Are you concerned about learning? Not on file 09/10/2022 No 09/10/2022 No 09/10/2022 Digital Access Answer Date Recorded No 10/10/2022 No 10/10/2022 Reliable internet access at home? Not on file 10/10/2022 Device with a working camera? Not on file Sex and Gender Information Value Date Recorded Sex Assigned at Not on file Legal Sex Male 5:09 PM EST Gender Identity Not on file Sexual Orientation Not on file Last Filed Vital Signs Vital Sign Reading Time Taken Comments Blood Pressure 128/72 04/10/2024 3:07 PM EST Pulse 64 04/10/2024 3:07 PM EST Temperature - - Respiratory Rate - - Oxygen Saturation 99% 04/10/2024 3:07 PM EST Inhaled Oxygen Concentration - - Weight 80 kg (176 lb 6.4 oz) 04/10/2024 3:07 PM EST Height 177.5 cm (5' 9.88 ) 04/10/2024 3:07 PM ES T Body Mass Index 25.4 04/10/2024 3:07 PM EST Plan of Treatment Health Maintenance Due Date Last Done Comments Adult Td,Tdap Booster 1940 ZOSTER VACCINES (1 of 2) 1988 RSV VACCINE (1 - 1-dose 75+ series) 2013 PNEUMOCOCCAL VACCINES (50+ years) (2 of 2 - PPSV23) 09/10/2021 07/16/2021 CREATININE LEVEL 08/27/2023 08/26/2022, , 10/11/2017 POTASSIUM LEVEL 08/27/2023 08/26/2022, 09/14, 10/11/2017 INFLUENZA VACCINE (#1) 2024 , 01/21/2024, 03/18/2023, Additional history exists COVID-19 VACCINE ( season) 2025 01/21/2024, 02/23/2023, 02/06/2022, Additional history exists DEPRESSION SCREENING 04/10/2025 04/10/2024, 04/10/20 HEPATITIS A VACCINES Aged Out No long er eligible based on patient's age to complete this topic HIB VACCINES Aged Out No longer eligi ble based on patient's age to complete this topic MENINGOCOCCAL VACCINES (ACWY) Aged Out No longer eligible based on patient's age to complete this topic MENINGOCOCCAL VACCINES (B) Aged Out N o longer eligible based on patient's age to complete this topic Medical Devices Not on file Procedures Procedure Name Priority Date/Time Associated Diagnosis Comments BASIC METABOLIC PANEL Routine 08/26/2022 9:46 AM EDT Essential hypertension, malignant Atrial fibrillation, unspecified type from Last 3 Months or Most Recently Relevant to Health Maintenance Results * (ABNORMAL) Basic metabolic panel (08/26/2022 9:46 AM EDT) SODIUM 141 133 - 146 mmol/L [facility] CHLORIDE 106 96 - 108 mmol/L [facility] POTASSIUM 4.3 3.3 - 5.1 mmol/L [facility] CO2 26 21 - 35 mmol/L [facility] BUN 21(H) 6 - 19 mg/dL [facility] CREATININE 1.10 0.5 - 1.5 mg/dL [facility] GLUCOSE 96 70 - 99 mg/dL [facility] CALCIUM 9.4 8.4 - 10.3 mg/dL [facility] EGFR 67 >59 mL/min/1.7 3m2 [facility] Comment:Estimated glomerular filtration rate calculated using the CKD-EPI refit equation. ANION GAP 13 10 - 20 mmol/L [facility] Blood 08/26/2022 9:46 AM EDT 08/26/2022 9:47 AM EDT us Quentin Dale MD LAB BLOOD ORDERABLES Fi nal Result [facility] [address] [place] [address] from Last 3 Months or Most Recently Relevant to Health Maintenance Insurance MEDIC[facility] PART A & [facility]AC[facility] MEDICARE PART A & [place] [address] [place] [address] MEDICARE REPLACEMENT MEDICARE PART A & B MEDICARE PART A & B MEDICARE PART A & B O MEDICARE REPLACEMENT [place] [id number] MEDICARE PART A & B [facility] MEDICARE REPLACEMENT MEDICARE PART A & B [facility] MEDICARE REPLACEMENT MEDICARE PART A & B MEDICARE PART A & B [facility] [place] [id number] Advance Directives For more information, please contact: [phone] (9AM - 5PM [facility], Tuesday-Tuesday) Documents on File Type Date Recorded 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 08/12/2022 4:07 PM Healthcare Agents on File Name Relationship Healthcare Agent Relationshi p Communication Solitario Adam .Primary Health Care Agent (Proxy form on file) Care Teams Patient Flow Coordinator Relationship Specialty Start Date End Date Sabrina Pickett MD [address] [place] [address] PCP - General Internal Medicine 02/02/23 Logan Winn DO [address] [place] [id number] [email or web address] Geriatric Medicine 02/01/24 Additional Source Comments The information contained in this document represents components of the legal health record. It is not the complete legal health record.[facility]
== END 2025-01-31 15:35 | disposition home or self-care (01) ==
LOC: HO.HMCH 14:41
PROVIDERS: PCP Internal Medicine; Visit Provider Internal Medicine
DX: I48.0 Paroxysmal atrial fibrillation (principal); I42.9 Cardiomyopathy, unspecified; G30.9 Alzheimer's disease, unspecified; F02.80 Dementia in other diseases classified elsewhere, unspecified severity, without behavioral disturbance, psychotic disturbance, mood disturbance, and anxiety; I10 Essential (primary) hypertension

== ENCOUNTER → 2025-01-31 14:40 | Outpatient (BNVA) | payer OTHER, SELFPAY | PROVIDERS: PCP Internal Medicine; Visit Provider Internal Medicine | DX: I10 Essential (primary) hypertension (principal); G30.9 Alzheimer's disease, unspecified; F02.80 Dementia in other diseases classified elsewhere, unspecified severity, without behavioral disturbance, psychotic disturbance, mood disturbance, and anxiety; I42.9 Cardiomyopathy, unspecified; I48.0 Paroxysmal atrial fibrillation | CPT/HCPCS: 99212 ==